=== PATIENT | female | born 1930 | race Caucasian/White ===

== ENCOUNTER 2017-02-28 13:55 | Observation (INO) | payer MEDICARE, BC ==
[2017-02-28] MEDS ORDERED: MECLIZINE 12.5 MG TAB PO STA (14:36)
[2017-02-28] MEDS ORDERED: METOCLOPRAMIDE 5 MG/ML 2 ML VIAL IVP STA (14:36)
--- NOTE | 2017-02-28 14:40 | ED ---
General Adult HPI - General Chief complaint: Dizziness Stated complaint: Dizziness Time Seen by Provider: 02/28/17 14:26 Source: patient, EMS, RN notes reviewed Mode of arrival: EMS Limitations: no limitations - History of Present Illness Initial comments: Patient is a pleasant 86-year-old female presenting to the emergency Department with complaints of dizziness. Onset was when she woke this morning. Patient complains of a spinning type sensation. Symptoms are positional. Symptoms are somewhat severe with upright position and head movement. Symptoms improve with lying down or resting. Patient has had similar symptoms a few times in the past. No chest pain. No weakness or confusion. - Related Data Home Medications Medication Instructions Recorded Confirmed Indapamide [Lozol] 2.5 mg PO DAILY 07/04/14 02/28/17 Pravastatin Sodium [Pravachol] 80 mg PO HS 07/04/14 02/28/17 Verapamil HCl [Verapamil ER] 240 mg PO DAILY 07/04/14 02/28/17 Alendronate Sodium [Fosamax] 70 mg PO AZAR 01/13/16 02/28/17 Meclizine [Antivert] 25 mg PO TID PRN 01/13/16 02/28/17 Escitalopram [Lexapro] 10 mg PO DAILY 02/28/17 02/28/17 Hydrocodone/Acetaminophen [[place] 1 tab PO Q8HR PRN 02/28/17 02/28/17 10-325 Tablet] Megestrol [Megace] 400 mg PO BID 02/28/17 02/28/17 Allergies Allergy/AdvReac Type Severity Reaction Status Date / Time Penicillins Allergy Rash/Hives Verified 02/28/17 15:18 Review of Systems ROS Statement: Those systems with pertinent positive or pertinent negative responses have been documented in the HPI. ROS Other: All systems not noted in ROS Statement are negative. Constitutional: Denies: fever Eyes: Denies: eye pain ENT: Denies: throat pain Respiratory: Denies: cough Cardiovascular: Denies: chest pain Endocrine: Denies: fatigue Gastrointestinal: Denies: abdominal pain Genitourinary: Denies: dysuria Musculoskeletal: Denies: back pain Skin: Denies: rash Neurological: Reports: vertigo. Denies: headache, weakness, numbness, paresthesias, confusion Past Medical History Past Medical History: Hyperlipidemia, Hypertension, Osteoarthritis (OA) History of Any Multi-Drug Resistant Organisms: None Reported Past Surgical History: No Surgical Hx Reported Past Psychological History: Depression Smoking Status: Never smoker Past Alcohol Use History: None Reported Past Drug Use History: None Reported General Exam Limitations: no limitations General appearance: alert, in no apparent distress Head exam: Present: atraumatic, normocephalic Eye exam: Present: normal appearance, PERRL, EOMI ENT exam: Present: normal oropharynx Neck exam: Present: normal inspection. Absent: tenderness Respiratory exam: Present: normal lung sounds bilaterally Cardiovascular Exam: Present: regular rate, normal rhythm GI/Abdominal exam: Present: soft. Absent: tenderness Extremities exam: Present: normal inspection Neurological exam: Present: alert, oriented X3, CN II-XII intact. Absent: motor sensory deficit Expanded Patient oriented to: Present: person, place, time Speech: Present: fluid speech Cranial nerves: EOM's Intact: Normal, Facial Sensation: Normal Sensory exam: Upper Extremity Light Touch: Normal, Lower Extremity Light Touch: Normal Motor strength exam: RUE: 5, LUE: 5, RLE: 5, LLE: 5 Eye Response: (4) open spontaneously Motor Response: (6) obeys commands Verbal Response: (5) oriented Psychiatric exam: Present: normal affect, normal mood Skin exam: Present: normal color Course Vital Signs 02/28/17 02/28/17 02/28/17 14:05 16:37 17:01 Temperature 98.4 F Pulse Rate 81 80 72 Respiratory 18 18 18 Rate Blood Pressure 174/78 147/73 155/79 O2 Sat by Pulse 97 96 97 Oximetry EKG Findings - EKG Comments: EKG Findings:: Normal sinus rhythm 74. Normal intervals. Normal axis. Normal QRS. Normal ST-T. Medical Decision Making - Medical Decision Making Previous computed tomography scan does not have similar report as current report however findings are reported as unchanged since previous scan. Case was discussed in detail with Dr. Hernandez, who will admit for Dr. Borrero. CTA of the brain and neck will be ordered. Patient was reevaluated and updated. Patient still feels dizzy with getting up right - Lab Data Result diagrams: 02/28/17 14:55 02/28/17 14:55 Lab Results 02/28/17 02/28/17 02/28/17 Range/Units 14:55 14:55 14:55 WBC 5.4 (3.8-10.6) k/uL RBC 4.37 (3.80-5.40) m/uL Hgb 13.9 (11.4-16.0) gm/dL Hct 42.7 (34.0-46.0) % MCV 97.5 (80.0-100.0) fL MCH 31.7 (25.0-35.0) pg MCHC 32.5 (31.0-37.0) g/dL RDW 13.6 (11.5-15.5) % Plt Count 339 (150-450) k/uL Neutrophils % 72 % Lymphocytes % 19 % Monocytes % 7 % Eosinophils % 1 % Basophils % 1 % Neutrophils # 3.9 (1.3-7.7) k/uL Lymphocytes # 1.0 (1.0-4.8) k/uL Monocytes # 0.4 (0-1.0) k/uL Eosinophils # 0.0 (0-0.7) k/uL Basophils # 0.0 (0-0.2) k/uL PT (9.0-12.0) sec INR (<1.1) APTT (22.0-30.0) sec Sodium 137 (137-145) mmol/L Potassium 5.2 H (3.5-5.1) mmol/L Chloride 107 (98-107) mmol/L Carbon Dioxide 20 L (22-30) mmol/L Anion Gap 10 mmol/L BUN 17 (7-17) mg/dL Creatinine 0.65 (0.52-1.04) mg/dL Est GFR (MDRD) Af Amer >60 (>60 ml/min/1.73 sqM) Est GFR (MDRD) Non-Af >60 (>60 ml/min/1.73 sqM) Glucose 90 (74-99) mg/dL Calcium 9.4 (8.4-10.2) mg/dL Total Bilirubin 0.9 (0.2-1.3) mg/dL AST 25 (14-36) U/L ALT 16 (9-52) U/L Alkaline Phosphatase 43 (38-126) U/L Total Creatine Kinase 22 L (30-135) U/L CK-MB (CK-2) <0.2 (0.0-2.4) ng/mL CK-MB (CK-2) Rel Index Troponin I <0.012 (0.000-0.034) ng/mL Total Protein 6.9 (6.3-8.2) g/dL Albumin 4.0 (3.5-5.0) g/dL 02/28/17 Range/Units 14:55 WBC (3.8-10.6) k/uL RBC (3.80-5.40) m/uL Hgb (11.4-16.0) gm/dL Hct (34.0-46.0) % MCV (80.0-100.0) fL MCH (25.0-35.0) pg MCHC (31.0-37.0) g/dL RDW (11.5-15.5) % Plt Count (150-450) k/uL Neutrophils % % Lymphocytes % % Monocytes % % Eosinophils % % Basophils % % Neutrophils # (1.3-7.7) k/uL Lymphocytes # (1.0-4.8) k/uL Monocytes # (0-1.0) k/uL Eosinophils # (0-0.7) k/uL Basophils # (0-0.2) k/uL PT 10.1 (9.0-12.0) sec INR 1.0 (<1.1) APTT 23.1 (22.0-30.0) sec Sodium (137-145) mmol/L Potassium (3.5-5.1) mmol/L Chloride (98-107) mmol/L Carbon Dioxide (22-30) mmol/L Anion Gap mmol/L BUN (7-17) mg/dL Creatinine (0.52-1.04) mg/dL Est GFR (MDRD) Af Amer (>60 ml/min/1.73 sqM) Est GFR (MDRD) Non-Af (>60 ml/min/1.73 sqM) Glucose (74-99) mg/dL Calcium (8.4-10.2) mg/dL Total Bilirubin (0.2-1.3) mg/dL AST (14-36) U/L ALT (9-52) U/L Alkaline Phosphatase (38-126) U/L Total Creatine Kinase (30-135) U/L CK-MB (CK-2) (0.0-2.4) ng/mL CK-MB (CK-2) Rel Index Troponin I (0.000-0.034) ng/mL Total Protein (6.3-8.2) g/dL Albumin (3.5-5.0) g/dL - Radiology Data Radiology results: report reviewed (Computed tomography scan of the brain shows degenerative changes. Remote ischemia. Nonspecific white matter changes most typical of remote ischemia. Stable asymmetric prominence right carotid siphon and M1 segment of the right MCA may represent vascular ectasia or aneurysm. Findings unchanged since 2009.) Disposition Clinical Impression: Vertigo Disposition: ADMITTED IP TO THIS HOSP Referrals: Rahul Borrero MD [Primary Care Provider] - 1-2 days Time of Disposition: 18:01
[2017-02-28 15:16] LABS: Basophils % (A) 1 %; CH 32.2; CHCM 33.2; Eosinophils % (A) 1 %; HCT 42.7 % (34.0-46.0); HDW 2.14; HGB 13.9 gm/dL (11.4-16.0); Luc % (Auto) 2; Lymphocytes % (A) 19 %; MCH 31.7 pg (25.0-35.0); MCHC 32.5 g/dL (31.0-37.0); MCV 97.5 fL (80.0-100.0); Mean Platelet Volume 7.5; Monocytes # (A) 0.4 k/uL (0-1.0); Monocytes % (A) 7 %; Neutrophils # (A) 3.9 k/uL (1.3-7.7); Neutrophils % (A) 72 %; RBC 4.37 m/uL (3.80-5.40); RDW 13.6 % (11.5-15.5); WBC 5.4 k/uL (3.8-10.6); WBC (Perox) 5.35
[2017-02-28 15:25] LABS: ALT 16 U/L (9-52); AST 25 U/L (14-36); Alkaline Phosphatase 43 U/L (38-126); Anion Gap 10 mmol/L; Blood Urea Nitrogen 17 mg/dL (7-17); Calcium 9.4 mg/dL (8.4-10.2); Carbon Dioxide 20 mmol/L (22-30); Chloride 107 mmol/L (98-107); Glucose 90 mg/dL (74-99); Non-African American GFR(MDRD) >60 (>60 ml/min/1.73 sqM); Partial Thromboplastin Time 23.1 sec (22.0-30.0); Prothrombin Time 10.1 sec (9.0-12.0); Sodium 137 mmol/L (137-145); Total Bilirubin 0.9 mg/dL (0.2-1.3); Total Protein 6.9 g/dL (6.3-8.2)
[2017-02-28 15:29] LABS: Potassium 5.2 mmol/L (3.5-5.1)
[2017-02-28 15:41] LABS: Creatine Kinase 22 U/L (30-135)
--- NOTE | 2017-02-28 15:50 | CT ---
EXAMINATION TYPE: CT brain wo con DATE OF EXAM: 02/28/2017 COMPARISON: 03/10/2010 HISTORY: Patient complains of vertigo. CT DLP: 993 mGycm Automated exposure control for dose reduction was used. FINDINGS: Ventricular system demonstrates moderate degenerative change with a greater central component. Area o f low attenuation involving the right occipital lobe is seen. Periventricular low attenuation is nons pecific but suggestive of remote microvascular ischemic change Asymmetric prominence of the M1 segment of the right MCA noted. This is stable dating back to 2009 an d may represent vascular ectasia or aneurysm. Small hypodensity within the left basal ganglia suggestive of a remote lacunar infarction. IMPRESSION: 1. Degenerative change with a greater central component appears stable from the previous exam correla te for normal pressure hydrocephalus. 2. Findings suggest remote ischemia involving the right parietal occipital junction 3. Nonspecific white matter changes most typical remote ischemia. 4. Stable asymmetric prominence of the right carotid siphon and M1 segment of the right MCA may repre sent vascular ectasia or aneurysm. Finding unchanged from previous exam of 2009.
[2017-02-28 15:54] LABS: Creatine Kinase MB <0.2 ng/mL (0.0-2.4); Troponin I <0.012 ng/mL (0.000-0.034)
[2017-02-28] MEDS ORDERED: LORazepam 2 MG/ML SYRINGE IV PRN (18:02)
[2017-02-28] MEDS ORDERED: NALOXONE 0.4 MG/ML 1 ML VIAL IV PRN (18:02)
[2017-02-28] MEDS ORDERED: SCOPOLAMINE 1.5MG/72HR PATCH TRANSDERM STA (18:04)
[2017-02-28] MEDS ORDERED: RX INFO: IV CONTRAST WAS GIVEN 1 EACH MISC MISCELLANE PRN (18:05)
[2017-02-28] MEDS ORDERED: MECLIZINE 25 MG TAB PO PRN (18:05)
[2017-02-28] MEDS: SODIUM CHLORIDE 0.9% 1,000 ML IV SCH (18:48)
--- NOTE | 2017-02-28 19:58 | CT ---
EXAMINATION TYPE: CT angio head neck DATE OF EXAM: 02/28/2017 7:46 PM COMPARISON: NONE HISTORY: Patient poor historian. Rule out aneurysm. CT DLP: 254.9 mGycm Automated exposure control for dose reduction was used. TECHNIQUE: Performed with IV Contrast, patient injected with 60 mL of Omnipaque 350. There are 3-D post processed images.. FINDINGS: There is normal branching pattern of the great vessels on the aortic arch. There is mild atheromatous change in the aortic arch. There is bilateral arterial flow in the vertebral arteries. There is arterial flow in the common internal and external carotid arteries bilaterally. I see no luanne dence of carotid stenosis. There is 10-20% narrowing at the origins of both internal carotid arteries . There is minimal calcified plaque. There is arterial flow in the anterior middle and posterior cerebral arteries. There is arterial flow in the vertebrobasilar artery system. The basilar artery appears to fill more from the left side. I see no evidence of aneurysm or neovascularity. There is no mass effect. There is no evidence of steno sis. There is normal contrast opacification of the venous sinuses. IMPRESSION: THERE IS EVIDENCE OF MINIMAL PLAQUE AT THE CAROTID ARTERY BIFURCATIONS AND ONLY 10-20% STENOSIS AT TH E ORIGIN OF BOTH INTERNAL CAROTID ARTERIES. NO EVIDENCE OF HEMODYNAMICALLY SIGNIFICANT STENOSIS. NO EVIDENCE OF ARTERIAL ABNORMALITY WITHIN THE BRAIN.
--- NOTE | 2017-02-28 22:20 | P.CNNES ---
History of Present Illness Consult date: 02/28/17 Reason for Consult: Patient admitted with vertigo and dizziness. History of Present Illness: This patient is a 86-year-old right-handed white female who apparently lives alone in her own home. She states her [id number] helps her and comes in his sister when she needs help at home. Patient was brought into the hospital as she was experiencing symptoms of dizziness and vertigo. Apparently her symptoms were quite severe causing her a great deal of difficulty to get up and walk. The patient has a history of vertigo in the past. She does have Antivert available at home but apparently did not take any Antivert as her symptoms were much more severe than usual. She decided to come to the emergency room at [facility] for further evaluation. She was seen in the ER by Dr. Santacruz who ordered a CT of the brain as well as CTA angiogram. CT of the brain revealed degenerative changes with some degree of ventriculomegaly. Significant frontotemporal atrophy was noted on the CAT scan of the brain. She underwent a CTA angiogram which came back negative for any aneurysm or carotid artery stenosis. The patient is a poor historian. She states that she does take some medications to control her blood pressure. She is unable to give much details as to her other medications. The patient states that the dizziness is positional causing her more symptoms if she were to move her head quickly or turning from side to side. The patient is noted to have a dull affect as well as a mask like facial expression. She is noted to have bilateral hand tremors. These medical symptoms are suggesting underlying our concern is him in this patient. She is not on any specific treatment for Parkinson's disease. The patient states she ambulates at home with the use of a walker. She does admit to having a shuffling gait at home. She denies any recent falls. She is now been admitted and neurology has been consulted for further evaluation and recommendations. Review of Systems Constitutional: Denies chills, Denies fever Eyes: denies blurred vision, denies pain Ears: bilateral: decreased hearing Ears, nose, mouth and throat: Reports vertigo, Denies headache, Denies sore throat Cardiovascular: Denies chest pain, Denies shortness of breath Respiratory: Denies cough Gastrointestinal: Denies abdominal pain, Denies diarrhea, Denies nausea, Denies vomiting Genitourinary: Denies dysuria, Denies hematuria Musculoskeletal: Denies myalgias Integumentary: Denies pruritus, Denies rash Neurological: Reports ataxia, Reports confusion, Reports hearing difficulties, Reports vertigo, Denies numbness, Denies weakness Psychiatric: Denies anxiety, Denies depression Endocrine: Denies fatigue, Denies weight change Past Medical History Past Medical History: Hyperlipidemia, Hypertension, Osteoarthritis (OA) History of Any Multi-Drug Resistant Organisms: None Reported Past Surgical History: No Surgical Hx Reported Past Psychological History: Depression Smoking Status: Never smoker Past Alcohol Use History: None Reported Past Drug Use History: None Reported Medications and Allergies Home Medications Medication Instructions Recorded Confirmed Type Indapamide [Lozol] 2.5 mg PO DAILY 07/04/14 02/28/17 History Pravastatin Sodium [Pravachol] 80 mg PO HS 07/04/14 02/28/17 History Verapamil HCl [Verapamil ER] 240 mg PO DAILY 07/04/14 02/28/17 History Alendronate Sodium [Fosamax] 70 mg PO AZAR 01/13/16 02/28/17 History Meclizine [Antivert] 25 mg PO TID PRN 01/13/16 02/28/17 History Escitalopram [Lexapro] 10 mg PO DAILY 02/28/17 02/28/17 History Hydrocodone/Acetaminophen [[place] 1 tab PO Q8HR PRN 02/28/17 02/28/17 History 10-325 Tablet] Megestrol [Megace] 400 mg PO BID 02/28/17 02/28/17 History Allergies Allergy/AdvReac Type Severity Reaction Status Date / Time Penicillins Allergy Rash/Hives Verified 02/28/17 15:18 Physical Examination - Vital Signs Vital Signs: Vital Signs Temp Pulse Resp BP Pulse Ox 02/28/17 19:27 98.1 F 80 18 169/75 95 02/28/17 18:49 75 18 145/66 95 02/28/17 17:01 72 18 155/79 97 02/28/17 16:37 80 18 147/73 96 02/28/17 14:05 98.4 F 81 18 174/78 97 Intake and Output 02/28/17 02/28/17 02/28/17 06:59 14:59 22:59 Other: Weight 58.967 kg Patient Weight 03/01/17 06:59 Weight 58.967 kg - Constitutional General appearance: average body habitus, cooperative - EENT EENT: PERRL, mucous membranes moist - Respiratory Respiratory: lungs clear, normal breath sounds - Cardiovascular Cardiovascular: regular rate, normal S1, normal S2 Extremities: no peripheral edema bilaterally - Gastrointestinal Gastrointestinal: normoactive bowel sounds - Integumentary Integumentary: normal - Neurologic Cranial nerve examination: PERRL, EOMI, V1/V2/V3 grossly intact, face symmetric , tongue midline, intact gag reflex, intact corneal reflex, normal palatal elevation Speech examination: intact Detailed motor examination: grossly full strength in all extremities Detailed sensory examination: intact Reflex and gait examination: intact Reflexes: 1+: ankle, bicep, knee, tricep - Musculoskeletal Musculoskeletal: no pain - Psychiatric Psychiatric: mood/affect appropriate, cooperative Results - Laboratory Findings CBC and BMP: 02/28/17 14:55 02/28/17 14:55 Abnormal Lab Findings: Abnormal Labs 02/28/17 02/28/17 14:55 14:55 Potassium 5.2 H Carbon Dioxide 20 L Total Creatine Kinase 22 L Assessment and Plan (1) Benign paroxysmal positional vertigo Status: Acute Code(s): H81.10 - BENIGN PAROXYSMAL VERTIGO, UNSPECIFIED EAR (2) Parkinsonism Status: Acute Code(s): G20 - PARKINSON'S DISEASE (3) Ataxic gait Status: Acute Code(s): R26.0 - ATAXIC GAIT (4) Mild cognitive impairment Status: Acute Code(s): G31.84 - MILD COGNITIVE IMPAIRMENT, SO STATED Plan: This patient is a 86-year-old right-handed white female admitted to Hospital with symptoms of positional vertigo. She states her symptoms came on suddenly and were quite severe. She has had vertigo in the past. She has been using Antivert at home when the symptoms are bothersome for her. She does have a prescription for meclizine at home. She apparently had such severe symptoms that she did not bother taking any Antivert at home. She was brought into the emergency room where she was evaluated by Dr. Santacruz. She was subsequently sent for a CT of the brain and CTA angiogram of the head and neck all of which him back negative for any acute findings. Patient was admitted to the hospital for further evaluation. Her clinical history is consistent with benign paroxysmal positional vertigo. We would recommend placing the patient on a scheduled dose of meclizine 12.5 mg twice a day. Dose can be adjusted depending on her response. She is to follow low-sodium diet. Computed tomography scan of the brain does reveal frontotemporal cortical atrophy. She does appear to have clinical findings for mild parkinsonism. We will continue close neurological follow-up for this patient during this admission. Her overall prognosis at this time remains very guarded. Time with Patient: Greater than 30
[2017-02-28] MEDS: HYDROcodone/APAP 10-325MG 1 EACH TAB PO PRN (23:41)
[2017-03-01] MEDS: METOCLOPRAMIDE 5 MG/ML 2 ML VIAL IVP SCH ×5 (00:46→23:44)
[2017-03-01] MEDS: INDAPAMIDE 2.5 MG TAB PO SCH (08:59)
[2017-03-01] MEDS: VERAPAMIL SR 240 MG TABLET.ER PO SCH (08:59)
[2017-03-01] MEDS: MEGESTROL 400 MG/10 ML CUP PO SCH ×2 (08:59→20:47)
[2017-03-01] MEDS: MECLIZINE 12.5 MG TAB PO SCH ×2 (08:59→20:47)
[2017-03-01] MEDS: ESCITALOPRAM 10 MG TAB PO SCH (08:59)
--- NOTE | 2017-03-01 12:01 | P.HPIM ---
History of Present Illness H&P Date: 03/01/17 Chief Complaint: Dizziness This is a 86-year-old female with past medical history noted below significant for known history of benign positional vertigo that usually uses meclizine as needed that presented to the emergency room with worsening dizziness. Patient said that she did not use her meclizine for the past few days. She noted that her dizziness has become worse recently mostly when she get up and try to walk around. Apparently she is very limited with her movements and she only can walk a few steps using a walker. She is mostly in the wheelchair throughout the day. Her got son was at bedside today when I talked to her. He told me that she has visiting nurses and home care coming to her house as she lives by her own. She was evaluated in the emergency room and underwent a computed tomography scan of the brain showing concerning findings about a possible aneurysm involving the right MCA. She was admitted to the hospital for further evaluation and neurology consultation. She underwent CT angiogram of the brain and neck showing no significant findings. She was started on meclizine twice daily scheduled shift. She is feeling relatively better today. No orthostatic blood pressure was checked. Review of Systems Review of system: 14 points review of systems were obtained and were negative except to what were mentioned in the HPI. Past Medical History Past Medical History: Hyperlipidemia, Hypertension, Osteoarthritis (OA) Additional Past Medical History / Comment(s): neuropathy, osteoporosis History of Any Multi-Drug Resistant Organisms: None Reported Past Surgical History: No Surgical Hx Reported Past Psychological History: Depression Smoking Status: Never smoker Past Alcohol Use History: None Reported Past Drug Use History: None Reported - Past Family History Brother(s) Family Medical History: COPD, Myocardial Infarction (CT) Mother Additional Family Medical History / Comment(s): "hardening of the arteries of the brain" Medications and Allergies Home Medications Medication Instructions Recorded Confirmed Type Indapamide [Lozol] 2.5 mg PO DAILY 07/04/14 02/28/17 History Pravastatin Sodium [Pravachol] 80 mg PO HS 07/04/14 02/28/17 History Verapamil HCl [Verapamil ER] 240 mg PO DAILY 07/04/14 02/28/17 History Alendronate Sodium [Fosamax] 70 mg PO AZAR 01/13/16 02/28/17 History Meclizine [Antivert] 25 mg PO TID PRN 01/13/16 02/28/17 History Escitalopram [Lexapro] 10 mg PO DAILY 02/28/17 02/28/17 History Hydrocodone/Acetaminophen [[place] 1 tab PO Q8HR PRN 02/28/17 02/28/17 History 10-325 Tablet] Megestrol [Megace] 400 mg PO BID 02/28/17 02/28/17 History Allergies Allergy/AdvReac Type Severity Reaction Status Date / Time Penicillins Allergy Rash/Hives Verified 02/28/17 15:18 Physical Exam Vitals: Vital Signs Temp Pulse Pulse Resp BP BP Pulse Ox 03/01/17 07:00 98.2 F 66 16 143/71 96 02/28/17 23:00 99.1 F 76 16 134/58 95 02/28/17 19:40 97.2 F L 76 16 177/85 96 02/28/17 19:27 98.1 F 80 18 169/75 95 02/28/17 18:49 75 18 145/66 95 02/28/17 17:01 72 18 155/79 97 02/28/17 16:37 80 18 147/73 96 02/28/17 14:05 98.4 F 81 18 174/78 97 Intake and Output 02/28/17 03/01/17 03/01/17 22:59 06:59 14:59 Other: # Voids 1 3 General: The patient is awake and alert, in no distress Eye: there is normal conjunctiva bilaterally. Neck: The neck is supple, there is no JVD. Cardiovascular: Normal S1-S2, no S3-S4, no murmurs. Respiratory: Lungs clear to auscultation bilaterally Gastrointestinal: Abdomen is soft, nontender Musculoskeletal: There is no pedal edema. Neurological:. Speech is normal. Skin: Skin is warm and dry Results CBC & Chem 7: 02/28/17 14:55 02/28/17 14:55 Labs: Abnormal Lab Results - Last 24 Hours (Table) 02/28/17 02/28/17 Range/Units 14:55 14:55 Potassium 5.2 H (3.5-5.1) mmol/L Carbon Dioxide 20 L (22-30) mmol/L Total Creatine Kinase 22 L (30-135) U/L Thrombosis Risk Factor Assmnt - Choose All That Apply Any of the Below Risk Factors Present?: No Other Risk Factors: Yes Each Risk Factor Represents 3 Points: Age 75 years or older Other congenital or acquired thrombophilia - If yes, enter type in comment: No Thrombosis Risk Factor Assessment Total Risk Factor Score: 3 Thrombosis Risk Factor Assessment Level: Moderate Risk Assessment and Plan Plan: 1. Benign positional vertigo: Started on meclizine twice daily. Seen and evaluated by neurology. I would check orthostatic blood pressure to rule out component of orthostatic hypotension for her dizziness. 2. Parkinsonism with ataxic gait. Patient is being evaluated by neurology. Further evaluation as an outpatient. 3. Essential hypertension: Blood pressure well-controlled 4. Major depressive disorder Today, I reviewed her medication list and lab work results. Continue gentle IV fluid hydration. Appreciate neurology recommendations. EEG ordered. I will consult PT/OT. Repeat lab work in the morning.
[2017-03-01] MEDS: SODIUM CHLORIDE 0.9% 1,000 ML IV SCH ×2 (12:17→17:45)
--- NOTE | 2017-03-01 16:13 | P.PN ---
Subjective This patient is a 86-year-old female who was admitted to Hospital with symptoms of increasing dizziness that was very much positional. She was unable to ambulate at home due to severe dizziness. She was brought into the emergency room and underwent a computed tomography scan of the brain as well as a CTA angiogram. CT of the brain revealed degenerative changes with mild ventriculomegaly. Review the actual CAT scan films also revealed significant frontotemporal atrophy. CTA angiogram came back negative for any evidence of aneurysm. There is also no evidence of carotid artery stenosis. On neurological examination yesterday the patient had findings suggesting benign positional vertigo. She was started on Antivert for this condition. She also had clinical findings for mild parkinsonism. Patient seems to be doing better in terms of her vertigo symptoms. She has been able to move her head more freely without feeling dizzy and vertiginous. We will continue close neurological follow-up with this patient during this admission. Recommended check this patient for orthostatic hypotension. This can also be a manifestation of her parkinsonism. Continue tight control of her blood pressure. Her overall prognosis at this time remains guarded. Objective - Vital Signs Vital signs: Vital Signs Temp 97.6 F 03/01/17 15:00 Pulse 73 03/01/17 15:00 Resp 18 03/01/17 15:00 BP 137/70 03/01/17 15:00 Pulse Ox 97 03/01/17 15:00 Intake & Output 02/28/17 03/01/17 03/01/17 18:59 06:59 18:59 Intake Total 240 Balance 240 Weight 58.967 kg Intake: Oral 240 Other: # Voids 3 1 # Bowel Movements 0 - Exam Physical examination: PHYSICAL EXAMINATION: Patient is resting comfortably in bed. VITAL SIGNS: Blood pressure is [140/73]. Heart rate is [75]. Respiration is [18] . Temperature is [97.7]. HEENT: Head is atraumatic, neck is supple, there were no carotid bruits. CHEST: Lungs are clear to auscultation and percussion. CARDIAC: S1, S2 normal rate and rhythm. There is no murmur. ABDOMEN: Soft and nontender. Bowel sounds are present. EXTREMITIES: There is no pedal edema. Peripheral pulses are present. Neurological examination: Patient's neurological examination is unchanged from yesterday. - Labs CBC & Chem 7: 02/28/17 14:55 02/28/17 14:55 Assessment and Plan (1) Benign paroxysmal positional vertigo Status: Acute Code(s): H81.10 - BENIGN PAROXYSMAL VERTIGO, UNSPECIFIED EAR (2) Parkinsonism Status: Acute Code(s): G20 - PARKINSON'S DISEASE (3) Ataxic gait Status: Acute Code(s): R26.0 - ATAXIC GAIT (4) Mild cognitive impairment Status: Acute Code(s): G31.84 - MILD COGNITIVE IMPAIRMENT, SO STATED Plan: This patient is a 86-year-old female being evaluated for acute onset of dizziness. Her clinical and exam findings yesterday suggested benign paroxysmal positional vertigo. She was started on Antivert on a scheduled dose of 12.5 mg twice a day. Today she has noted some improvement. CT of the brain as well as CT angiogram are reviewed yesterday and are negative. She may continue on Antivert at this time for treatment of her benign positional vertigo. She is advised to follow low sodium diet as well. We will continue to follow her progress closely during this admission. Overall prognosis at this time remains guarded.
[2017-03-01] MEDS: PRAVASTATIN SODIUM 40 MG TAB PO SCH (20:47)
[2017-03-01] MEDS: HEPARIN SODIUM,PORCINE 5,000 UNIT/ML 1 ML VIAL SQ SCH (20:48)
[2017-03-01] MEDS: HYDROcodone/APAP 10-325MG 1 EACH TAB PO PRN (22:32)
[2017-03-02] MEDS: METOCLOPRAMIDE 5 MG/ML 2 ML VIAL IVP SCH ×4 (06:17→23:14)
[2017-03-02] MEDS: MECLIZINE 12.5 MG TAB PO SCH ×2 (08:12→22:52)
[2017-03-02] MEDS: VERAPAMIL SR 240 MG TABLET.ER PO SCH (08:13)
[2017-03-02] MEDS: MEGESTROL 400 MG/10 ML CUP PO SCH ×2 (08:13→22:53)
[2017-03-02] MEDS: SODIUM CHLORIDE 0.9% 1,000 ML IV SCH ×2 (08:13→18:28)
[2017-03-02] MEDS: ESCITALOPRAM 10 MG TAB PO SCH (08:13)
[2017-03-02] MEDS: HEPARIN SODIUM,PORCINE 5,000 UNIT/ML 1 ML VIAL SQ SCH ×2 (08:13→22:52)
[2017-03-02] MEDS: INDAPAMIDE 2.5 MG TAB PO SCH (08:13)
[2017-03-02 08:34] LABS: Anion Gap 9 mmol/L; Blood Urea Nitrogen 15 mg/dL (7-17); Calcium 9.5 mg/dL (8.4-10.2); Carbon Dioxide 23 mmol/L (22-30); Chloride 108 mmol/L (98-107); Glucose 89 mg/dL (74-99); Non-African American GFR(MDRD) >60 (>60 ml/min/1.73 sqM); Potassium 4.2 mmol/L (3.5-5.1); Sodium 140 mmol/L (137-145)
[2017-03-02 08:35] LABS: Basophils % (A) 1 %; CH 32.1; CHCM 33.3; Eosinophils # (A) 0.1 k/uL (0-0.7); Eosinophils % (A) 1 %; HCT 42.4 % (34.0-46.0); HDW 2.26; HGB 14.1 gm/dL (11.4-16.0); Luc # (Auto) 0.09; Luc % (Auto) 2; Lymphocytes # (A) 1.6 k/uL (1.0-4.8); Lymphocytes % (A) 31 %; MCH 32.2 pg (25.0-35.0); MCHC 33.3 g/dL (31.0-37.0); MCV 96.5 fL (80.0-100.0); Mean Platelet Volume 7.2; Monocytes # (A) 0.3 k/uL (0-1.0); Monocytes % (A) 6 %; Neutrophils # (A) 3.1 k/uL (1.3-7.7); Neutrophils % (A) 60 %; RDW 13.2 % (11.5-15.5); WBC 5.2 k/uL (3.8-10.6); WBC (Perox) 5.03
--- NOTE | 2017-03-02 14:23 | P.PN ---
Subjective Patient is doing well today. Her dizziness have improved significantly. Objective - Vital Signs Vital signs: Vital Signs Temp 97.7 F 03/02/17 07:00 Pulse 87 03/02/17 07:00 Resp 14 03/02/17 07:00 BP 156/74 03/02/17 07:00 Pulse Ox 97 03/02/17 07:00 Intake & Output 03/01/17 03/02/17 03/02/17 18:59 06:59 18:59 Intake Total 240 Balance 240 Intake: Oral 240 Other: # Voids 1 3 # Bowel Movements 0 - Exam General: The patient is awake and alert, in no distress Eye: there is normal conjunctiva bilaterally. Neck: The neck is supple, there is no JVD. Cardiovascular: Normal S1-S2, no S3-S4, no murmurs. Respiratory: Lungs clear to auscultation bilaterally Gastrointestinal: Abdomen is soft, nontender Musculoskeletal: There is no pedal edema. Neurological:. Speech is normal. Skin: Skin is warm and dry - Labs CBC & Chem 7: 03/02/17 07:54 03/02/17 07:54 Labs: Abnormal Lab Results - Last 24 Hours (Table) 03/02/17 Range/Units 07:54 Chloride 108 H (98-107) mmol/L Assessment and Plan Plan: 1. Benign positional vertigo: Continue meclizine twice daily. Seen and evaluated by neurology. Orthostatic blood pressure checked and negative. Symptoms are improving. 2. Parkinsonism with ataxic gait. Patient is being evaluated by neurology. Further evaluation as an outpatient. 3. Essential hypertension: Blood pressure well-controlled 4. Major depressive disorder Patient is cleared for discharge home today. She does not have a ride today secondary to holiday weekend as her daughter lives in [place] and she is unable to get to her house. Plan for discharge tomorrow.
--- NOTE | 2017-03-02 19:06 | P.PN ---
Subjective This patient is a 86-year-old female who was admitted to Hospital with symptoms of increasing dizziness that was very much positional. She was unable to ambulate at home due to severe dizziness. She was brought into the emergency room and underwent a computed tomography scan of the brain as well as a CTA angiogram. CT of the brain revealed degenerative changes with mild ventriculomegaly. Review the actual CAT scan films also revealed significant frontotemporal atrophy. CTA angiogram came back negative for any evidence of aneurysm. There is also no evidence of carotid artery stenosis. On neurological examination yesterday the patient had findings suggesting benign positional vertigo. She was started on Antivert for this condition. Patient is doing much better today and is having less symptoms of dizziness or vertigo. Recommended continue her on current dose of Antivert. She also had clinical findings for mild parkinsonism. Patient seems to be doing better in terms of her vertigo symptoms. She has been able to move her head more freely without feeling dizzy and vertiginous. We will continue close neurological follow-up with this patient during this admission. Recommended check this patient for orthostatic hypotension. This can also be a manifestation of her parkinsonism. Continue tight control of her blood pressure. Her overall prognosis at this time remains guarded. Objective - Vital Signs Vital signs: Vital Signs Temp 96.9 F L 03/02/17 14:38 Pulse 78 03/02/17 14:38 Resp 16 03/02/17 14:38 BP 119/63 03/02/17 14:38 Pulse Ox 98 03/02/17 14:38 Intake & Output 03/02/17 03/02/17 03/03/17 06:59 18:59 06:59 Other: # Voids 3 3 - Exam Physical examination: PHYSICAL EXAMINATION: Patient is resting comfortably in bed. VITAL SIGNS: Blood pressure is [119/63]. Heart rate is [78]. Respiration is [16] . Temperature is [97.0]. HEENT: Head is atraumatic, neck is supple, there were no carotid bruits. CHEST: Lungs are clear to auscultation and percussion. CARDIAC: S1, S2 normal rate and rhythm. There is no murmur. ABDOMEN: Soft and nontender. Bowel sounds are present. EXTREMITIES: There is no pedal edema. Peripheral pulses are present. Neurological examination: Patient's neurological examination is unchanged from yesterday. - Labs CBC & Chem 7: 03/02/17 07:54 03/02/17 07:54 Labs: Abnormal Lab Results - Last 24 Hours (Table) 03/02/17 Range/Units 07:54 Chloride 108 H (98-107) mmol/L Assessment and Plan (1) Benign paroxysmal positional vertigo Status: Acute Code(s): H81.10 - BENIGN PAROXYSMAL VERTIGO, UNSPECIFIED EAR (2) Parkinsonism Status: Acute Code(s): G20 - PARKINSON'S DISEASE (3) Ataxic gait Status: Acute Code(s): R26.0 - ATAXIC GAIT (4) Mild cognitive impairment Status: Acute Code(s): G31.84 - MILD COGNITIVE IMPAIRMENT, SO STATED Plan: This patient is a 86-year-old female who was initially admitted to Hospital for evaluation of dizziness and vertigo. On her initial presentation to the emergency room she underwent a computed tomography scan of the brain as well as a CTA angiogram. Results are as noted above. CAT scan of the brain did reveal frontotemporal atrophy. She also has clinical findings of mild parkinsonism. Since admission she has responded very well to her current dose of Antivert twice a day. Recommended continue the same at the time of discharge. Apparently she has no ride available today and will most likely be able to be discharged home tomorrow. She may follow-up in the outpatient neurology clinic in 3-4 weeks for further reevaluation of the vertigo as well as to address the parkinsonism features that she is demonstrating as well. Her overall prognosis at this time remains guarded.
[2017-03-02] MEDS: PRAVASTATIN SODIUM 40 MG TAB PO SCH (22:52)
[2017-03-02] MEDS: CARBIDOPA-LEVODOPA 25-100 MG 1 EACH TAB PO SCH (22:52)
[2017-03-02] MEDS ORDERED: NON-FORMULARY DRUG (Alendronate Sodium [Fosamax] 70 MG) PO SCH (23:05)
[2017-03-03] MEDS: METOCLOPRAMIDE 5 MG/ML 2 ML VIAL IVP SCH ×4 (06:21→23:54)
[2017-03-03 07:44] LABS: Basophils # (A) 0.1 k/uL (0-0.2); Basophils % (A) 1 %; CH 31.3; Eosinophils # (A) 0.1 k/uL (0-0.7); Eosinophils % (A) 2 %; HCT 44.8 % (34.0-46.0); HDW 2.13; HGB 14.6 gm/dL (11.4-16.0); Luc # (Auto) 0.13; Luc % (Auto) 2; Lymphocytes # (A) 1.6 k/uL (1.0-4.8); Lymphocytes % (A) 30 %; MCHC 32.6 g/dL (31.0-37.0); MCV 98.1 fL (80.0-100.0); Mean Platelet Volume 7.2; Monocytes # (A) 0.4 k/uL (0-1.0); Monocytes % (A) 7 %; Neutrophils # (A) 3.2 k/uL (1.3-7.7); Neutrophils % (A) 58 %; RBC 4.57 m/uL (3.80-5.40); RDW 13.4 % (11.5-15.5); WBC 5.4 k/uL (3.8-10.6); WBC (Perox) 5.15
[2017-03-03 08:01] LABS: Anion Gap 8 mmol/L; Blood Urea Nitrogen 15 mg/dL (7-17); Calcium 9.5 mg/dL (8.4-10.2); Carbon Dioxide 23 mmol/L (22-30); Chloride 109 mmol/L (98-107); Glucose 93 mg/dL (74-99); Non-African American GFR(MDRD) >60 (>60 ml/min/1.73 sqM); Potassium 4.3 mmol/L (3.5-5.1); Sodium 140 mmol/L (137-145)
[2017-03-03] MEDS: MEGESTROL 400 MG/10 ML CUP PO SCH ×2 (08:47→20:07)
[2017-03-03] MEDS: HEPARIN SODIUM,PORCINE 5,000 UNIT/ML 1 ML VIAL SQ SCH ×2 (08:47→20:07)
[2017-03-03] MEDS: INDAPAMIDE 2.5 MG TAB PO SCH (08:47)
[2017-03-03] MEDS: ESCITALOPRAM 10 MG TAB PO SCH (08:48)
[2017-03-03] MEDS: VERAPAMIL SR 240 MG TABLET.ER PO SCH (08:48)
[2017-03-03] MEDS: MECLIZINE 12.5 MG TAB PO SCH ×2 (08:48→20:07)
[2017-03-03] MEDS: CARBIDOPA-LEVODOPA 25-100 MG 1 EACH TAB PO SCH ×2 (08:48→20:07)
--- NOTE | 2017-03-03 13:19 | P.PN ---
Subjective This patient is a 86-year-old female who was admitted to Hospital with symptoms of increasing dizziness that was very much positional. She was unable to ambulate at home due to severe dizziness. She was brought into the emergency room and underwent a computed tomography scan of the brain as well as a CTA angiogram. CT of the brain revealed degenerative changes with mild ventriculomegaly. Review the actual CAT scan films also revealed significant frontotemporal atrophy. CTA angiogram came back negative for any evidence of aneurysm. There is also no evidence of carotid artery stenosis. On neurological examination yesterday the patient had findings suggesting benign positional vertigo. She was started on Antivert for this condition. Patient is doing much better today and is having less symptoms of dizziness or vertigo. Recommended continue her on current dose of Antivert. She also had clinical findings for mild parkinsonism. Patient seems to be doing better in terms of her vertigo symptoms. She has been able to move her head more freely without feeling dizzy and vertiginous. According to the daughter who is at the bedside yesterday she feels the patient is unable to return home without some assistance. Currently she is living in her own home and she is considering whether to have her placed into a extended care facility. We have suggested that she talk to the elementary school social worker upon discharge planning. We did start the patient on low dose Sinemet yesterday to see if she may respond as she does have features of Parkinson's disease. According to the daughter she is noted her to have more shuffling gait and increase in tremors. As mentioned her primary diagnosis was of vertigo but likely she is suffering with some features of Parkinson's that is making her more weak and unable to return home without some assistance. We will await further recommendations from social work regarding discharge planning. We will continue close neurological follow-up with this patient during this admission. Recommended check this patient for orthostatic hypotension. This can also be a manifestation of her parkinsonism. Continue tight control of her blood pressure. Her overall prognosis at this time remains guarded. Objective - Vital Signs Vital signs: Vital Signs Temp 97.5 F L 03/03/17 07:00 Pulse 89 03/03/17 07:00 Resp 19 03/03/17 07:00 BP 133/77 03/03/17 07:00 Pulse Ox 96 03/03/17 08:05 Intake & Output 03/02/17 03/03/17 03/03/17 18:59 06:59 18:59 Intake Total 400 Balance 400 Intake: Oral 400 Other: Voiding Method Bedpan Incontinent # Voids 3 3 # Bowel Movements 0 - Exam Physical examination: PHYSICAL EXAMINATION: Patient is resting comfortably in bed. Patient appears to have masklike facial expression. VITAL SIGNS: Blood pressure is [133/77]. Heart rate is [89]. Respiration is [19] . Temperature is [97.5]. HEENT: Head is atraumatic, neck is supple, there were no carotid bruits. CHEST: Lungs are clear to auscultation and percussion. CARDIAC: S1, S2 normal rate and rhythm. There is no murmur. ABDOMEN: Soft and nontender. Bowel sounds are present. EXTREMITIES: There is no pedal edema. Peripheral pulses are present. Neurological examination: Patient's neurological examination is unchanged from yesterday. Patient does have mild hand tremors as well as cogwheel rigidity in the upper extremities only. - Labs CBC & Chem 7: 03/03/17 07:25 03/03/17 07:25 Labs: Abnormal Lab Results - Last 24 Hours (Table) 03/03/17 Range/Units 07:25 Chloride 109 H (98-107) mmol/L Assessment and Plan (1) Benign paroxysmal positional vertigo Status: Acute Code(s): H81.10 - BENIGN PAROXYSMAL VERTIGO, UNSPECIFIED EAR (2) Parkinsonism Status: Acute Code(s): G20 - PARKINSON'S DISEASE (3) Ataxic gait Status: Acute Code(s): R26.0 - ATAXIC GAIT (4) Mild cognitive impairment Status: Acute Code(s): G31.84 - MILD COGNITIVE IMPAIRMENT, SO STATED Plan: This patient is a 86-year-old female who was initially admitted to Hospital for evaluation of dizziness and vertigo. On her initial presentation to the emergency room she underwent a computed tomography scan of the brain as well as a CTA angiogram. Results are as noted above. CAT scan of the brain did reveal frontotemporal atrophy. She also has clinical findings of mild parkinsonism. Since admission she has responded very well to her current dose of Antivert twice a day. Recommended continue the same at the time of discharge. Apparently she has no ride available today and will most likely be able to be discharged home tomorrow. Her case was discussed last night with her daughter. Apparently the daughter is concerned whether the patient can return home without some assistance. We did recommend for her to contact social work for possible discharge planning to see if she may require further assistance or ECF placement. Patient has been started on low-dose Sinemet and we will monitor her response to the medication as she does have mild features of Parkinson's disease. She may follow-up in the outpatient neurology clinic in 3-4 weeks for further reevaluation of the vertigo as well as to address the parkinsonism features that she is demonstrating as well. She may require further titration of Sinemet depending on her response at that time. Her overall prognosis at this time remains guarded. We will continue to follow the patient closely during this admission. Overall prognosis as noted remains guarded.
--- NOTE | 2017-03-03 14:38 | P.DS ---
Providers Date of admission: 02/28/17 18:02 Expected date of discharge: 03/03/17 Attending physician: Liz Cheatham Consults: 02/28/17 18:03 Consult Physician Urgent Consulting Provider: Bridger Martinez Consult Reason/Comments: Intractable vertigo Do you want consulting provider notified?: Yes Primary care physician: Rahul [facility] Course: 1. Benign positional vertigo: Continue meclizine twice daily. Seen and evaluated by neurology. Orthostatic blood pressure checked and negative. Symptoms are improving. Continue meclizine twice a day 2. Parkinsonism with ataxic gait. Patient is being evaluated by neurology. Further evaluation as an outpatient. 3. Essential hypertension: Blood pressure well-controlled 4. Major depressive disorder Plan - Discharge Summary New Discharge Prescriptions: Carbidopa-Levodopa 25-100 mg [Sinemet 25-100 mg] 1 each PO BID #60 tab Meclizine [Antivert] 25 mg PO BID #60 Discharge Medication List Indapamide [Lozol] 2.5 mg PO DAILY 07/04/14 [History] Pravastatin Sodium [Pravachol] 80 mg PO HS 07/04/14 [History] Verapamil HCl [Verapamil ER] 240 mg PO DAILY 07/04/14 [History] Alendronate Sodium [Fosamax] 70 mg PO AZAR 01/13/16 [History] Escitalopram [Lexapro] 10 mg PO DAILY 02/28/17 [History] Hydrocodone/Acetaminophen [[place] 10-325 Tablet] 1 tab PO Q8HR PRN 02/28/17 [ History] Megestrol [Megace] 400 mg PO BID 02/28/17 [History] Carbidopa-Levodopa 25-100 mg [Sinemet 25-100 mg] 1 each PO BID #60 tab 03/03/17 [Rx] Meclizine [Antivert] 25 mg PO BID #60 03/03/17 [Rx] Follow up Appointment(s)/Referral(s): Rahul Borrero MD [Primary Care Provider] - 1-2 days Discharge Disposition: HOME SELF-CARE
[2017-03-03] MEDS: SODIUM CHLORIDE 0.9% 1,000 ML IV SCH (18:30)
[2017-03-03] MEDS: PRAVASTATIN SODIUM 40 MG TAB PO SCH (20:07)
[2017-03-03] MEDS: DOCUSATE 100 MG CAP PO SCH (20:07)
[2017-03-04] MEDS: METOCLOPRAMIDE 5 MG/ML 2 ML VIAL IVP SCH ×2 (05:57→13:17)
[2017-03-04 09:08] LABS: Anion Gap 9 mmol/L; Blood Urea Nitrogen 22 mg/dL (7-17); Calcium 9.4 mg/dL (8.4-10.2); Carbon Dioxide 21 mmol/L (22-30); Chloride 109 mmol/L (98-107); Glucose 95 mg/dL (74-99); Non-African American GFR(MDRD) >60 (>60 ml/min/1.73 sqM); Potassium 4.5 mmol/L (3.5-5.1); Sodium 139 mmol/L (137-145)
[2017-03-04 09:33] LABS: Basophils % (A) 0 %; CH 31.9; CHCM 32.4; Eosinophils # (A) 0.1 k/uL (0-0.7); Eosinophils % (A) 2 %; HCT 44.5 % (34.0-46.0); HDW 2.12; HGB 14.2 gm/dL (11.4-16.0); Luc # (Auto) 0.13; Luc % (Auto) 2; Lymphocytes # (A) 1.7 k/uL (1.0-4.8); Lymphocytes % (A) 26 %; MCH 31.5 pg (25.0-35.0); MCHC 31.9 g/dL (31.0-37.0); MCV 98.6 fL (80.0-100.0); Mean Platelet Volume 7.5; Monocytes # (A) 0.4 k/uL (0-1.0); Monocytes % (A) 7 %; Neutrophils # (A) 4.1 k/uL (1.3-7.7); Neutrophils % (A) 63 %; RBC 4.51 m/uL (3.80-5.40); RDW 13.6 % (11.5-15.5); WBC 6.5 k/uL (3.8-10.6); WBC (Perox) 6.33
[2017-03-04] MEDS: MEGESTROL 400 MG/10 ML CUP PO SCH ×2 (09:35→21:04)
[2017-03-04] MEDS: MECLIZINE 12.5 MG TAB PO SCH ×2 (09:36→21:04)
[2017-03-04] MEDS: ESCITALOPRAM 10 MG TAB PO SCH (09:36)
[2017-03-04] MEDS: CARBIDOPA-LEVODOPA 25-100 MG 1 EACH TAB PO SCH ×2 (09:36→21:04)
[2017-03-04] MEDS: VERAPAMIL SR 240 MG TABLET.ER PO SCH (09:36)
[2017-03-04] MEDS: HEPARIN SODIUM,PORCINE 5,000 UNIT/ML 1 ML VIAL SQ SCH ×2 (09:36→21:04)
[2017-03-04] MEDS: DOCUSATE 100 MG CAP PO SCH ×2 (09:37→21:04)
[2017-03-04] MEDS: INDAPAMIDE 2.5 MG TAB PO SCH (09:37)
--- NOTE | 2017-03-04 10:27 | EEG ---
DATE OF SERVICE: 03/03/2017 INDICATIONS FOR EXAMINATION: This patient is an 86-year-old female admitted with intractable vertigo. The patient also with symptoms of parkinsonism. AGE: 86Y EEG FINDINGS: A routine 21-channel, awake digital EEG recording was accomplished utilizing the 10-20 international system with bipolar and referential montages. The background activity in the most alert resting state consists of a low to medium amplitude, fairly well-developed and well-sustained 6-7 Hz activity over the posterior head regions. This posterior rhythm attenuates to eye opening. There is a small amount of low amplitude 18-20 Hz beta activity seen maximally over the anterior head regions. Muscle and movement artifact was observed on a few occasions during the tracing. Hyperventilation was not performed. Photic stimulation at flash frequencies of 2-30 Hz produced a minimal occipital driving response. No epileptiform discharges were seen. IMPRESSION: This EEG is mildly abnormal in a diffuse fashion due to slowing of the EEG background. The EEG failed to reveal any focal, lateralized or epileptiform abnormalities. Clinical correlation is recommended.
[2017-03-04] MEDS ORDERED: METOCLOPRAMIDE 5 MG/ML 2 ML VIAL IVP PRN (13:21)
--- NOTE | 2017-03-04 13:33 | P.PN ---
Subjective Patient is doing well today. Objective - Vital Signs Vital signs: Vital Signs Temp 99.0 F 03/04/17 07:00 Pulse 78 03/04/17 07:00 Resp 20 03/04/17 07:00 BP 148/77 03/04/17 07:00 Pulse Ox 96 03/04/17 07:00 Intake & Output 03/03/17 03/04/17 03/04/17 18:59 06:59 18:59 Intake Total 340 400 240 Balance 340 400 240 Weight 58.967 kg Intake: Intake, IV Titration 100 Amount Sodium Chloride 0.9% 1, 100 000 ml @ 20 mls/hr IV . Q24H [facility] Rx#:[id number] Oral 240 400 240 Other: Voiding Method Bedpan Bedpan Incontinent Incontinent # Voids 3 1 1 # Bowel Movements 0 0 0 - Exam General: The patient is awake and alert, in no distress Eye: there is normal conjunctiva bilaterally. Neck: The neck is supple, there is no JVD. Cardiovascular: Normal S1-S2, no S3-S4, no murmurs. Respiratory: Lungs clear to auscultation bilaterally Gastrointestinal: Abdomen is soft, nontender Musculoskeletal: There is no pedal edema. Neurological:. Speech is normal. Skin: Skin is warm and dry - Labs CBC & Chem 7: 03/04/17 08:24 03/04/17 08:24 Labs: Abnormal Lab Results - Last 24 Hours (Table) 03/04/17 Range/Units 08:24 Chloride 109 H (98-107) mmol/L Carbon Dioxide 21 L (22-30) mmol/L BUN 22 H (7-17) mg/dL Assessment and Plan Plan: 1. Benign positional vertigo: Continue meclizine twice daily. Seen and evaluated by neurology. Orthostatic blood pressure checked and negative. Symptoms are improving. 2. Parkinsonism with ataxic gait. Patient is being evaluated by neurology. Further evaluation as an outpatient. 3. Essential hypertension: Blood pressure well-controlled 4. Major depressive disorder Patient is cleared for discharge home. She does require 2 person assist to ambulate. She is unable to return home. She is under observation and therefore does not qualify for custodial home. Plan for her to be discharged with her daughter who lives in [place]. Her daughter is not ready for her today. Discharge will be postponed until tomorrow. Patient is medically clear for discharge
--- NOTE | 2017-03-04 19:35 | P.PN ---
Subjective Patient is a 86 year old female who was initially admitted with intractable vertigo. She has responded well to Antivert for treatment of this condition. In the course of her treatment of the vertigo the patient was also found to have evidence of Parkinson's disease. She has been started on low-dose Sinemet for treatment to see if she may respond. Patient does seem to be doing better on the current dose of Sinemet. Patient is being evaluated for possible discharge to her daughter's home for subacute rehabilitation. Her daughter is living in [place] at this time. Once she is more stable she may be returning back to the area for further ongoing treatment. At this time we would recommend to continue on current dose of Sinemet. This may be slowly titrated depending on her response long-term. Patient does not qualify for penitentiary home placement at this time. The plan is to consider discharge to her daughter who lives in [place] for at least some period of time until she is more stable and may return for further ongoing evaluation and treatment. Overall the patient's vertigo has completely resolved. She is to continue on current dose of meclizine twice a day. We will continue to monitor her progress closely during this admission. Overall prognosis at this time remains guarded. Objective - Vital Signs Vital signs: Vital Signs Temp 98.8 F 03/04/17 15:00 Pulse 78 03/04/17 15:00 Resp 20 03/04/17 15:00 BP 119/69 03/04/17 15:00 Pulse Ox 96 03/04/17 15:00 Intake & Output 03/03/17 03/04/17 03/04/17 18:59 06:59 18:59 Intake Total 340 400 780 Balance 340 400 780 Weight 58.967 kg Intake: Intake, IV Titration 100 300 Amount Sodium Chloride 0.9% 1, 100 300 000 ml @ 20 mls/hr IV . Q24H [facility] Rx#:[id number] Oral 240 400 480 Other: Voiding Method Bedpan Bedpan Bedside Commode Incontinent Incontinent Bedpan Incontinent # Voids 3 1 2 # Bowel Movements 0 0 0 - Exam Physical examination: PHYSICAL EXAMINATION: Patient is resting comfortably in bed. Patient appears to be more alert and attentive. She does not have much of a masslike facial expression today. She has no evidence of rest tremor. VITAL SIGNS: Blood pressure is [120/69]. Heart rate is [78]. Respiration is [20] . Temperature is [98.8]. HEENT: Head is atraumatic, neck is supple, there were no carotid bruits. CHEST: Lungs are clear to auscultation and percussion. CARDIAC: S1, S2 normal rate and rhythm. There is no murmur. ABDOMEN: Soft and nontender. Bowel sounds are present. EXTREMITIES: There is no pedal edema. Peripheral pulses are present. Neurological examination: Patient's neurological examination is unchanged from yesterday. Patient does have mild hand tremors as well as cogwheel rigidity in the upper extremities only. - Labs CBC & Chem 7: 03/04/17 08:24 03/04/17 08:24 Labs: Abnormal Lab Results - Last 24 Hours (Table) 03/04/17 Range/Units 08:24 Chloride 109 H (98-107) mmol/L Carbon Dioxide 21 L (22-30) mmol/L BUN 22 H (7-17) mg/dL Assessment and Plan (1) Benign paroxysmal positional vertigo Status: Acute Code(s): H81.10 - BENIGN PAROXYSMAL VERTIGO, UNSPECIFIED EAR (2) Parkinsonism Status: Acute Code(s): G20 - PARKINSON'S DISEASE (3) Ataxic gait Status: Acute Code(s): R26.0 - ATAXIC GAIT (4) Mild cognitive impairment Status: Acute Code(s): G31.84 - MILD COGNITIVE IMPAIRMENT, SO STATED Plan: This patient is a 86-year-old right-handed white female who was initially evaluated for intractable vertigo. She was also subsequent only found to have evidence of Parkinson's disease. She has been started on low-dose Sinemet. Her discharge plans is to discharge her home under the care of her daughter lives in [place]. When she is stabilized she may be returning back where she may be reevaluated and adjusted in terms of her Sinemet dosing for the Parkinson 's condition. Patient does not qualify for penitentiary home placement at this time. We will need to have her continue on Sinemet and adjust her dose gradually over the next month or so if she is able to return. She may follow- up in the outpatient neurology clinic when she gets back for further adjustment of her medication as needed. Overall prognosis at this time remains guarded. We will await further recommendations from social work in terms of discharge planning.
[2017-03-04] MEDS: SODIUM CHLORIDE 0.9% 1,000 ML IV SCH (19:46)
[2017-03-04] MEDS: HYDROcodone/APAP 10-325MG 1 EACH TAB PO PRN (20:13)
[2017-03-04] MEDS: PRAVASTATIN SODIUM 40 MG TAB PO SCH (21:04)
[2017-03-05] MEDS: MEGESTROL 400 MG/10 ML CUP PO SCH (08:52)
[2017-03-05] MEDS: ESCITALOPRAM 10 MG TAB PO SCH (08:52)
[2017-03-05] MEDS: CARBIDOPA-LEVODOPA 25-100 MG 1 EACH TAB PO SCH (08:52)
[2017-03-05] MEDS: HEPARIN SODIUM,PORCINE 5,000 UNIT/ML 1 ML VIAL SQ SCH (08:52)
[2017-03-05] MEDS: VERAPAMIL SR 240 MG TABLET.ER PO SCH (08:52)
[2017-03-05] MEDS: MECLIZINE 12.5 MG TAB PO SCH (08:52)
[2017-03-05] MEDS: DOCUSATE 100 MG CAP PO SCH (08:53)
[2017-03-05] MEDS: INDAPAMIDE 2.5 MG TAB PO SCH (08:53)
[2017-03-05 09:37] LABS: Basophils % (A) 1 %; CHCM 32.3; Eosinophils # (A) 0.1 k/uL (0-0.7); Eosinophils % (A) 2 %; HCT 45.6 % (34.0-46.0); HGB 14.3 gm/dL (11.4-16.0); Luc # (Auto) 0.13; Luc % (Auto) 2; Lymphocytes # (A) 1.7 k/uL (1.0-4.8); Lymphocytes % (A) 24 %; MCH 31.3 pg (25.0-35.0); MCHC 31.3 g/dL (31.0-37.0); MCV 99.8 fL (80.0-100.0); Mean Platelet Volume 7.6; Monocytes # (A) 0.4 k/uL (0-1.0); Monocytes % (A) 7 %; Neutrophils # (A) 4.4 k/uL (1.3-7.7); Neutrophils % (A) 65 %; RBC 4.57 m/uL (3.80-5.40); RDW 13.8 % (11.5-15.5); WBC 6.8 k/uL (3.8-10.6)
[2017-03-05 09:40] LABS: Anion Gap 11 mmol/L; Blood Urea Nitrogen 26 mg/dL (7-17); Calcium 9.8 mg/dL (8.4-10.2); Carbon Dioxide 22 mmol/L (22-30); Chloride 105 mmol/L (98-107); Glucose 90 mg/dL (74-99); Non-African American GFR(MDRD) >60 (>60 ml/min/1.73 sqM); Potassium 4.6 mmol/L (3.5-5.1); Sodium 138 mmol/L (137-145)
--- NOTE | 2017-03-05 11:25 | P.PN ---
Subjective No events overnight Objective - Vital Signs Vital signs: Vital Signs Temp 97.6 F 03/05/17 07:00 Pulse 76 03/05/17 07:00 Resp 16 03/05/17 07:00 BP 140/73 03/05/17 07:00 Pulse Ox 97 03/05/17 07:00 Intake & Output 03/04/17 03/05/17 03/05/17 18:59 06:59 18:59 Intake Total 780 200 Balance 780 200 Weight 58.967 kg Intake: Intake, IV Titration 300 Amount Sodium Chloride 0.9% 1, 300 000 ml @ 20 mls/hr IV . Q24H VERO Rx#:[id number] Oral 480 200 Other: Voiding Method Bedside Commode Bedside Commode Bedpan Bedpan Incontinent Incontinent # Voids 2 2 # Bowel Movements 0 0 - Labs CBC & Chem 7: 03/05/17 08:41 03/05/17 08:41 Labs: Abnormal Lab Results - Last 24 Hours (Table) 03/05/17 Range/Units 08:41 BUN 26 H (7-17) mg/dL Assessment and Plan Plan: 1. Benign positional vertigo: Continue meclizine twice daily. Seen and evaluated by neurology. Orthostatic blood pressure checked and negative. Symptoms are improving. 2. Parkinsonism with ataxic gait. Patient is being evaluated by neurology. Further evaluation as an outpatient. 3. Essential hypertension: Blood pressure well-controlled 4. Major depressive disorder Patient will be discharged today. She was medically cleared for discharge 2 days ago but was unable to get out of the hospital until arrangement made by her daughter in [place]. Please refer to my discharge summary in the electronic chart for further details about this hospitalization.
[2017-03-05] MEDS ORDERED: LACTULOSE 20 GM/30 ML CUP PO ONE (13:37)
[2017-03-05 15:42] VITALS: BP 136/75; PULSE 89; RESP 20; TEMP 97.4
--- NOTE | 2017-03-05 18:52 | P.PN ---
Subjective Patient is a 86 year old female who was initially admitted with intractable vertigo. She has responded well to Antivert for treatment of this condition. In the course of her treatment of the vertigo the patient was also found to have evidence of Parkinson's disease. She has been started on low-dose Sinemet for treatment to see if she may respond. Patient does seem to be doing better on the current dose of Sinemet. Patient is being evaluated for possible discharge to her daughter's home for subacute rehabilitation. Her daughter is living in [place] at this time. Once she is more stable she may be returning back to the area for further ongoing treatment. At this time we would recommend to continue on current dose of Sinemet. This may be slowly titrated depending on her response long-term. Patient does not qualify for detention home placement at this time. The plan is to consider discharge to her daughter who lives in [place] for at least some period of time until she is more stable and may return for further ongoing evaluation and treatment. Overall the patient's vertigo has completely resolved. She is to continue on current dose of meclizine twice a day. Patient has been cleared for discharge home today. She is waiting for her daughter who is making arrangements to take her to [place] where she will undergo some rehabilitation. Once she returns back home she may schedule an outpatient follow-up for further adjustment of her Sinemet for treatment of her Parkinson's disease. We will continue to monitor her progress closely during this admission. Overall prognosis at this time remains guarded. Objective - Vital Signs Vital signs: Vital Signs Temp 97.4 F L 03/05/17 15:00 Pulse 89 03/05/17 15:00 Resp 20 03/05/17 16:00 BP 136/75 03/05/17 15:00 Pulse Ox 96 03/05/17 15:00 Intake & Output 03/04/17 03/05/17 03/05/17 18:59 06:59 18:59 Intake Total 780 200 Balance 780 200 Weight 58.967 kg 58.967 kg Intake: Intake, IV Titration 300 Amount Sodium Chloride 0.9% 1, 300 000 ml @ 20 mls/hr IV . Q24H VERO Rx#:[id number] Oral 480 200 Other: Voiding Method Bedside Commode Bedside Commode Bedside Commode Bedpan Bedpan Bedpan Incontinent Incontinent Incontinent # Voids 2 2 2 # Bowel Movements 0 0 0 - Exam Physical examination: PHYSICAL EXAMINATION: Patient is resting comfortably in bed. Patient appears to be more alert and attentive. She does not have much of a masslike facial expression today. She has no evidence of rest tremor. VITAL SIGNS: Blood pressure is [136/75]. Heart rate is [89]. Respiration is [20] . Temperature is [97.4]. HEENT: Head is atraumatic, neck is supple, there were no carotid bruits. CHEST: Lungs are clear to auscultation and percussion. CARDIAC: S1, S2 normal rate and rhythm. There is no murmur. ABDOMEN: Soft and nontender. Bowel sounds are present. EXTREMITIES: There is no pedal edema. Peripheral pulses are present. Neurological examination: Patient's neurological examination is unchanged from yesterday. Patient does have mild hand tremors as well as cogwheel rigidity in the upper extremities only. - Labs CBC & Chem 7: 03/05/17 08:41 03/05/17 08:41 Labs: Abnormal Lab Results - Last 24 Hours (Table) 03/05/17 Range/Units 08:41 BUN 26 H (7-17) mg/dL Assessment and Plan (1) Benign paroxysmal positional vertigo Status: Acute Code(s): H81.10 - BENIGN PAROXYSMAL VERTIGO, UNSPECIFIED EAR (2) Parkinsonism Status: Acute Code(s): G20 - PARKINSON'S DISEASE (3) Ataxic gait Status: Acute Code(s): R26.0 - ATAXIC GAIT (4) Mild cognitive impairment Status: Acute Code(s): G31.84 - MILD COGNITIVE IMPAIRMENT, SO STATED Plan: This patient is a 86-year-old female who was initially evaluated for intractable vertigo. She has responded well to Antivert and does have evidence of acute labyrinthitis. She has responded well to Antivert and should continue on the same treatment. She also has findings of mild parkinsonism and is been started on Sinemet low dose with close monitoring. She is being cleared for discharge home to the care of her daughter. Daughter is making arrangements to take her to [place] for a short rehabilitation. She may follow-up in the outpatient neurology clinic for further adjustment of her Sinemet dose when she returns back to the [facility]. Her overall prognosis at this time remains guarded. We will continue close neurological follow-up for the patient when she is discharged. She may schedule follow-up appointment when she returns back to [place] for further treatment and management. Her overall prognosis at this time remains guarded.
[2017-03-05] MEDS: SODIUM CHLORIDE 0.9% 1,000 ML IV SCH (19:45)
== END 2017-03-05 18:33 | disposition home or self-care (01) ==
LOC: EC 13:55 → 4MS4W 18:02 → INTOOBSV 18:02 → 4MS4W 19:00
PROVIDERS: ADMIT Internal Medicine; ATTEND Internal Medicine
DX: H81.10 Benign paroxysmal vertigo, unspecified ear (principal); I10 Essential (primary) hypertension; E78.5 Hyperlipidemia, unspecified; M19.90 Unspecified osteoarthritis, unspecified site; F32.9 Major depressive disorder, single episode, unspecified; G31.84 Mild cognitive impairment of uncertain or unknown etiology; G20 Parkinson's disease; M81.0 Age-related osteoporosis without current pathological fracture; G62.9 Polyneuropathy, unspecified; R26.0 Ataxic gait; I95.1 Orthostatic hypotension; Z79.899 Other long term (current) drug therapy; Z79.83 Long term (current) use of bisphosphonates; Z88.0 Allergy status to penicillin; Z82.49 Family history of ischemic heart disease and other diseases of the circulatory system
CPT/HCPCS: 96376 ×4; 96372 ×5; 96374; 99285; 36415; 94760; 95819; 93005; 97110; 97530 ×2; 97162; 80053; 80048 ×4; 82550; 82553; 84484; 85025 ×5; 85610; 85730; 70496; 70450; 70498; G0378 ×6; J1644 ×5; J2765 ×5; Q9967; S0179 ×5

== ENCOUNTER 2017-06-16 17:49 | Emergency (ER) | payer MEDICARE, BC ==
--- NOTE | 2017-06-16 19:45 | XR ---
EXAMINATION TYPE: XR ribs RT w pa chest xray DATE OF EXAM: 06/16/2017 COMPARISON: Chest x-ray 01/13/2016 HISTORY: Rib pain TECHNIQUE: 5 views FINDINGS: There is focal pleural thickening on the right lateral chest wall in the minor fissure. The re is slight blunting of right costophrenic angle. There is no pneumothorax. There is no heart failur e. Heart appears enlarged. I see no rib fracture. IMPRESSION: There is new pleural thickening and reaction in the right lower lobe compared to old exam . No heart failure. There is probably some new interstitial right lower lobe infiltrate as well. No f racture seen.
--- NOTE | 2017-06-16 19:45 | ED ---
General Adult HPI - General Chief complaint: Abdominal Pain Stated complaint: LOWER RT SIDE, NAYE Time Seen by Provider: 06/16/17 19:05 Source: patient, family, RN notes reviewed Mode of arrival: wheelchair Limitations: no limitations - History of Present Illness Initial comments: Chief complaint history of present illness an 87-year-old female here with family. The patient has had for the past 3 or 4 days increasing pain when she takes a deep breath to the right lower lateral rib cage area. To her knowledge she has not hurt herself. Direct observation does not show any rash though early shingles was discussed so that the daughter for help provider can look for this in the future. Patient denies fever denies nausea vomiting. - Related Data Home Medications Medication Instructions Recorded Confirmed Verapamil HCl [Verapamil ER] 240 mg PO DAILY 07/04/14 06/16/17 Alendronate Sodium [Fosamax] 70 mg PO AZAR 01/13/16 06/16/17 Escitalopram [Lexapro] 10 mg PO DAILY 02/28/17 06/16/17 Hydrocodone/Acetaminophen [[place] 1 tab PO Q8HR PRN 02/28/17 06/16/17 10-325 Tablet] Megestrol [Megace] 400 mg PO BID PRN 02/28/17 06/16/17 Aspirin 81 mg PO DAILY 06/16/17 06/16/17 Carbidopa/Levodopa 1 tab PO BID 06/16/17 06/16/17 [Carbidopa-Levodopa 10-100 Tab] Cholecalciferol (Vitamin D3) 2,000 unit PO DAILY 06/16/17 06/16/17 [Vitamin D3] Docusate [Colace] 100 mg PO DAILY PRN 06/16/17 06/16/17 Isosorbide Mononitrate ER [Imdur] 30 mg PO DAILY 06/16/17 06/16/17 Meclizine [Antivert] 25 mg PO BID PRN 06/16/17 06/16/17 Naproxen 500 mg PO BID 06/16/17 06/16/17 Pravastatin Sodium [Pravachol] 80 mg PO HS 06/16/17 06/16/17 Sennosides/Docusate Sodium 1 tab PO DAILY PRN 06/16/17 06/16/17 [Michelle-Colace Tablet] Previous Rx's Medication Instructions Recorded Ibuprofen [Motrin] 600 mg PO Q6HR PRN #20 tab 06/16/17 Levofloxacin [Levaquin] 500 mg PO DAILY #10 tab 06/16/17 Allergies Allergy/AdvReac Type Severity Reaction Status Date / Time Penicillins Allergy Rash/Hives Verified 06/16/17 20:06 Review of Systems ROS Statement: Those systems with pertinent positive or pertinent negative responses have been documented in the HPI. Review of systems patient is hard of hearing but denies being in any pain other than which takes deep breath which patches are in the right lower lateral rib cage area. Palpation of this area causes mild discomfort with deep breathing makes it feel much worse. Denies nausea vomiting diarrhea no apparent change in general health her attitude. No change in appetite per family. All systems are reviewed. Past medical problems significant for hyperlipidemia, hypertension osteoarthritis neuropathy . No apparent surgical history reported. Family history noncontributory. Never smoked no alcohol use ROS Other: All systems not noted in ROS Statement are negative. Past Medical History Past Medical History: Hyperlipidemia, Hypertension, Osteoarthritis (OA) Additional Past Medical History / Comment(s): neuropathy, osteoporosis History of Any Multi-Drug Resistant Organisms: None Reported Past Surgical History: No Surgical Hx Reported Past Psychological History: Depression Smoking Status: Never smoker Past Alcohol Use History: None Reported Past Drug Use History: None Reported - Past Family History Brother(s) Family Medical History: COPD, Myocardial Infarction ([place]) Mother Additional Family Medical History / Comment(s): "hardening of the arteries of the brain" General Exam - General Exam Comments Initial Comments: General: The patient is awake and hard of hearing. Reports pain with deep breathing to the right lower lateral rib cage. Vital signs shows temperature 98.3 pulse 76 respiratory rate 16 pulse ox 97% room air Eye: Pupils are equal, arcus senilis, extra-ocular movements are intact; there is normal conjunctiva bilaterally. No signs of icterus. Ears, nose, mouth and throat: There are moist mucous membranes. Neck: The neck is supple, there is no tenderness or JVD. Cardiovascular: There is a regular rate and rhythm. No murmur, rub or gallop is appreciated. Respiratory: Lungs are clear to auscultation, deep respirations causes pain to the right lower lateral rib cage. The same areas examined no evidence evidence of rash, early shingles was discussed. Gastrointestinal: No pain with deep palpation to the right upper quadrant or right lower quadrant. No nausea no vomiting no change in appetite per patient. Back: Right lower lateral rib cage pain with deep breathing Musculoskeletal: Able to move upper and lower extremities. Sits in a wheelchair all day long. Neurological: No apparent focal or lateralizing deficits. Patient is not complaining of anything new. Skin: Skin is warm and dry and no rashes or lesions are noted. Limitations: no limitations Course Vital Signs 06/16/17 06/16/17 06/16/17 18:41 20:31 21:25 Temperature 98.3 F 98.3 F 98.7 F Pulse Rate 76 73 72 Respiratory 16 18 19 Rate Blood Pressure 158/74 157/74 O2 Sat by Pulse 97 98 97 Oximetry Medical Decision Making - Medical Decision Making Medical decision making the patient's white count 12.6 hemoglobin 13 hematocrit 39, potassium 4.5 with a BUN of 28 creatinine 0.8 GFR greater than 60. Glucose 107. Chest x-ray is done and reviewed by radiologist radiologist's final impression is there is no pleural thickening and reaction in the right lower lobe compared to the old exam no heart failure. There is probably some new interstitial right lower lobe infiltrate as well. No fracture seen. As read by Dr. Grimes Patient has pleuritic pain with no onset pneumonic infiltrate. The patient will be placed on Levaquin 500 one daily for 10 days. Ibuprofen for pain. Follow-up with family physician. - Lab Data Result diagrams: 06/16/17 19:55 06/16/17 19:55 Lab Results 06/16/17 06/16/17 Range/Units 19:55 19:55 WBC 12.6 H (3.8-10.6) k/uL RBC 4.23 (3.80-5.40) m/uL Hgb 13.1 (11.4-16.0) gm/dL Hct 39.5 (34.0-46.0) % MCV 93.4 (80.0-100.0) fL MCH 30.9 (25.0-35.0) pg MCHC 33.1 (31.0-37.0) g/dL RDW 15.7 H (11.5-15.5) % Plt Count 485 H (150-450) k/uL Neutrophils % 80 % Lymphocytes % 11 % Monocytes % 7 % Eosinophils % 1 % Basophils % 0 % Neutrophils # 10.0 H (1.3-7.7) k/uL Lymphocytes # 1.3 (1.0-4.8) k/uL Monocytes # 0.9 (0-1.0) k/uL Eosinophils # 0.1 (0-0.7) k/uL Basophils # 0.0 (0-0.2) k/uL Sodium 140 (137-145) mmol/L Potassium 4.5 (3.5-5.1) mmol/L Chloride 104 (98-107) mmol/L Carbon Dioxide 22 (22-30) mmol/L Anion Gap 14 mmol/L BUN 28 H (7-17) mg/dL Creatinine 0.80 (0.52-1.04) mg/dL Est GFR (MDRD) Af Amer >60 (>60 ml/min/1.73 sqM) Est GFR (MDRD) Non-Af >60 (>60 ml/min/1.73 sqM) Glucose 109 H (74-99) mg/dL Calcium 9.5 (8.4-10.2) mg/dL Total Bilirubin 0.5 (0.2-1.3) mg/dL AST 26 (14-36) U/L ALT 33 (9-52) U/L Alkaline Phosphatase 95 (38-126) U/L Total Protein 6.7 (6.3-8.2) g/dL Albumin 3.9 (3.5-5.0) g/dL Disposition Clinical Impression: Pneumonia, Pleurisy Disposition: HOME SELF-CARE Condition: Fair Instructions: Community Acquired Pneumonia (ED), Pleurisy (ED) Additional Instructions: Take Levaquin daily for 10 days. Use ibuprofen for pain. Follow-up family physician Prescriptions: Ibuprofen [Motrin] 600 mg PO Q6HR PRN #20 tab PRN Reason: Pain Levofloxacin [Levaquin] 500 mg PO DAILY #10 tab Referrals: Rahul Borrero MD [Primary Care Provider] - 1-2 days Time of Disposition: 21:34
[2017-06-16 20:24] LABS: Basophils % (A) 0 %; CH 30.6; CHCM 32.9; Eosinophils # (A) 0.1 k/uL (0-0.7); Eosinophils % (A) 1 %; HCT 39.5 % (34.0-46.0); HDW 2.35; HGB 13.1 gm/dL (11.4-16.0); Luc % (Auto) 2; Lymphocytes # (A) 1.3 k/uL (1.0-4.8); Lymphocytes % (A) 11 %; MCH 30.9 pg (25.0-35.0); MCHC 33.1 g/dL (31.0-37.0); MCV 93.4 fL (80.0-100.0); Mean Platelet Volume 8.2; Monocytes # (A) 0.9 k/uL (0-1.0); Monocytes % (A) 7 %; Neutrophils % (A) 80 %; RBC 4.23 m/uL (3.80-5.40); RDW 15.7 % (11.5-15.5); WBC 12.6 k/uL (3.8-10.6)
[2017-06-16 20:32] LABS: ALT 33 U/L (9-52); AST 26 U/L (14-36); Alkaline Phosphatase 95 U/L (38-126); Anion Gap 14 mmol/L; Blood Urea Nitrogen 28 mg/dL (7-17); Calcium 9.5 mg/dL (8.4-10.2); Carbon Dioxide 22 mmol/L (22-30); Chloride 104 mmol/L (98-107); Glucose 109 mg/dL (74-99); Non-African American GFR(MDRD) >60 (>60 ml/min/1.73 sqM); Potassium 4.5 mmol/L (3.5-5.1); Sodium 140 mmol/L (137-145); Total Bilirubin 0.5 mg/dL (0.2-1.3); Total Protein 6.7 g/dL (6.3-8.2)
[2017-06-16] MEDS ORDERED: IBUPROFEN 600 MG STARTER PACK 4 TAB BTL PO STA (21:34)
[2017-06-16] MEDS ORDERED: LEVOFLOXACIN 500MG-D5W PMX 500 MG in DEXTROSE/WATER 1 100ML.BAG IVPB STA (21:34)
[2017-06-16 22:59] VITALS: BP 154/70; PULSE 75; RESP 18; TEMP 97.9
== END 2017-06-16 22:55 | disposition home or self-care (01) ==
LOC: EC 17:49
DX: J18.9 Pneumonia, unspecified organism (principal); R09.1 Pleurisy; E78.5 Hyperlipidemia, unspecified; I10 Essential (primary) hypertension; M19.90 Unspecified osteoarthritis, unspecified site; M81.0 Age-related osteoporosis without current pathological fracture; F32.9 Major depressive disorder, single episode, unspecified; Z79.1 Long term (current) use of non-steroidal anti-inflammatories (NSAID); Z79.82 Long term (current) use of aspirin; Z79.899 Other long term (current) drug therapy; Z88.0 Allergy status to penicillin
CPT/HCPCS: 36415; 80053; 85025; 71101; 99284; 96374; J1956

== ENCOUNTER 2018-09-20 20:59 | Inpatient (IN) | payer MEDICARE, BC ==
[2018-09-20] MEDS ORDERED: PANTOPRAZOLE 40 MG/10 ML VIAL IVP STA (22:16)
--- NOTE | 2018-09-20 22:28 | ED ---
GI Bleed HPI - General Chief complaint: GI Bleed Stated complaint: GI Bleed Time Seen by Provider: 09/20/18 21:07 Source: patient, EMS Mode of arrival: EMS Limitations: altered mental status (Underlying dementia versus delirium) - History of Present Illness Initial comments: This patient is an 88-year-old woman resident of [facility], who was transferred here from [facility]. The patient had been taken there this evening, after she had reportedly had an episode of vomiting with some bright red blood. Most of the history comes from the transfer paperwork, as the patient does appear to have some underlying dementia versus delirium. At was reported that the patient there was found to have a hemoglobin of 7.6 tonight when labs that were taken on September 18 had shown a hemoglobin of 8.9. The patient did not have any other reported hematemesis. The patient's had been given 1 unit of packed red blood cells there, and was receiving another unit of packed red blood cells during transportation here. When I interview the patient, she is not having complaints other than the fact that she is feeling thirsty. The patient is denying pain in the chest or abdomen. There is no back pain. She is not currently having any nausea or vomiting. She is not able to tell me about her last bowel movement. Also at the other hospital, the patient was given H2 marlee but they did not reportedly have any IV pump inhibitor and she did not receive that. complaint: blood streaked emesis - Related Data Home Medications Medication Instructions Recorded Confirmed Verapamil HCl [Verapamil ER] 240 mg PO HS 07/04/14 09/20/18 Escitalopram [Lexapro] 20 mg PO DAILY 02/28/17 09/20/18 Aspirin 81 mg PO DAILY 06/16/17 09/20/18 Isosorbide Mononitrate ER [Imdur] 30 mg PO DAILY 06/16/17 09/20/18 Meclizine [Antivert] 25 mg PO DAILY 06/16/17 09/20/18 Naproxen 500 mg PO Q12H PRN 06/16/17 09/20/18 Sennosides/Docusate Sodium 1 tab PO BID@0900,1700 06/16/17 09/20/18 [Michelle-Colace Tablet] Acetaminophen Tab [Tylenol Tab] 1,000 mg PO BID 09/20/18 09/20/18 Bisacodyl [Dulcolax] 10 mg PO Q48H PRN 09/20/18 09/20/18 Cetirizine HCl [Zyrtec] 10 mg PO DAILY 09/20/18 09/20/18 Fluticasone Nasal [place] [Flonase 2 spray EA NOSTRIL DAILY 09/20/18 09/20/18 Nasal [place]] Gabapentin 600 mg PO BID@0900,1700 09/20/18 09/20/18 Indapamide [Lozol] 2.5 mg PO DAILY 09/20/18 09/20/18 Magnesium Hydroxide [Milk of 7,200 mg PO DAILY PRN 09/20/18 09/20/18 Magnesia Concentrate] Melatonin 9 mg PO HS PRN 09/20/18 09/20/18 Ondansetron HCl [Zofran] 8 mg PO Q8H PRN 09/20/18 09/20/18 Polyethylene Glycol 3350 [Miralax] 17 gm PO DAILY 09/20/18 09/20/18 Pro-Stat Sugar Free 30 mg PO BID@0900,1700 09/20/18 09/20/18 guaiFENesin [guaiFENesin Oral 200 mg PO Q6H PRN 09/20/18 09/20/18 Solution] Allergies Allergy/AdvReac Type Severity Reaction Status Date / Time amlodipine [From [place]] Allergy Unknown Verified 09/20/18 21:23 amoxicillin [From Augmentin] Allergy Unknown Verified 09/20/18 21:23 atorvastatin [From [place]] Allergy Unknown Verified 09/20/18 21:23 calcitonin [From Miacalcin] Allergy Unknown Verified 09/20/18 21:23 clavulanic acid Allergy Unknown Verified 09/20/18 21:23 [From Augmentin] colesevelam [From WelChol] Allergy Unknown Verified 09/20/18 21:23 ezetimibe [From Vytorin] Allergy Unknown Verified 09/20/18 21:23 Penicillins Allergy Rash/Hives Verified 09/20/18 21:23 simvastatin [From Vytorin] Allergy Unknown Verified 09/20/18 21:23 Review of Systems ROS Statement: Those systems with pertinent positive or pertinent negative responses have been documented in the HPI. ROS Other: All systems not noted in ROS Statement are negative. Limitations: ROS unobtainable due to patients medical condition (Underlying) Constitutional: Reports: weakness (Reportedly having about 2 weeks of generalized weakness) Respiratory: Denies: cough, dyspnea Cardiovascular: Denies: chest pain, palpitations, edema Gastrointestinal: Reports: as per HPI, vomiting. Denies: abdominal pain, nausea Musculoskeletal: Denies: back pain Neurological: Denies: headache Past Medical History Past Medical History: Hyperlipidemia, Hypertension, Osteoarthritis (OA) Additional Past Medical History / Comment(s): neuropathy, osteoporosis, diverticulosis, back pain, dysphasia History of Any Multi-Drug Resistant Organisms: None Reported Past Surgical History: No Surgical Hx Reported Past Psychological History: Depression Smoking Status: Never smoker Past Alcohol Use History: None Reported Past Drug Use History: None Reported - Past Family History Brother(s) Family Medical History: COPD, Myocardial Infarction ([place]) Mother Additional Family Medical History / Comment(s): "hardening of the arteries of the brain" General Exam Limitations: no limitations General appearance: alert Head exam: Present: atraumatic, normocephalic ENT exam: Present: mucous membranes dry Neck exam: Present: full ROM. Absent: tenderness, meningismus Respiratory exam: Present: respiratory distress (Mild tachypnea), rhonchi. Absent: wheezes, rales, stridor, decreased breath sounds Cardiovascular Exam: Present: regular rate, normal rhythm, systolic murmur. Absent: diastolic murmur, rubs, gallop GI/Abdominal exam: Present: soft. Absent: distended, tenderness, guarding, rebound, rigid, mass Extremities exam: Present: normal inspection, normal capillary refill. Absent: pedal edema, calf tenderness Neurological exam: Present: alert. Absent: oriented X3, motor sensory deficit Skin exam: Present: warm, dry, intact, normal color. Absent: rash Course Vital Signs 09/20/18 09/20/18 09/21/18 21:05 23:18 00:35 Temperature 98.4 F 99.1 F Pulse Rate 98 96 94 Respiratory 24 20 20 Rate Blood Pressure 121/61 111/60 124/56 O2 Sat by Pulse 99 93 L 94 L Oximetry 09/21/18 09/21/18 09/21/18 02:06 03:17 04:06 Temperature 99.5 F Pulse Rate 93 125 H 124 H Respiratory 18 18 16 Rate Blood Pressure 120/70 117/65 107/57 O2 Sat by Pulse 96 96 97 Oximetry 09/21/18 04:08 Temperature Pulse Rate 116 H Respiratory 16 Rate Blood Pressure 98/50 O2 Sat by Pulse 96 Oximetry - Reevaluation(s) Reevaluation #1: 09/20/18 22:28 The paperwork from the outside hospital was reviewed. Also reviewed patient's CODE STATUS which is DO NOT RESUSCITATE per the form signed in May 2018. Medical Decision Making - Medical Decision Making Patient is an 88-year-old woman transferred here from [facility] for GI bleeding. Case is discussed with both the admitting physician Dr. Borrero, and with the convex grinder on-call , and there treatment recommendations are incorporated. Admission orders written. Prior to the patient being admitted she didn't go into atrial fibrillation with a rapid ventricular rate and Cardizem started. - Lab Data Result diagrams: 09/21/18 05:21 09/21/18 05:21 Lab Results 09/20/18 09/20/18 09/20/18 Range/Units 22:47 22:47 22:47 WBC 8.8 (3.8-10.6) k/uL RBC 3.41 L (3.80-5.40) m/uL Hgb 9.7 L (11.4-16.0) gm/dL Hct 29.8 L (34.0-46.0) % MCV 87.4 (80.0-100.0) fL MCH 28.3 (25.0-35.0) pg MCHC 32.4 (31.0-37.0) g/dL RDW 14.0 (11.5-15.5) % Plt Count 353 (150-450) k/uL Neutrophils % 86 % Lymphocytes % 7 % Monocytes % 5 % Eosinophils % 1 % Basophils % 0 % Neutrophils # 7.6 (1.3-7.7) k/uL Lymphocytes # 0.6 L (1.0-4.8) k/uL Monocytes # 0.5 (0-1.0) k/uL Eosinophils # 0.1 (0-0.7) k/uL Basophils # 0.0 (0-0.2) k/uL Sodium 137 (137-145) mmol/L Potassium 3.8 (3.5-5.1) mmol/L Chloride 108 H (98-107) mmol/L Carbon Dioxide 24 (22-30) mmol/L Anion Gap 5 mmol/L BUN 27 H (7-17) mg/dL Creatinine 0.50 L (0.52-1.04) mg/dL Est GFR (CKD-EPI)AfAm >90 (>60 ml/min/1.73 sqM) Est GFR (CKD-EPI)NonAf 87 (>60 ml/min/1.73 sqM) Glucose 130 H (74-99) mg/dL Calcium 8.0 L (8.4-10.2) mg/dL Troponin I 0.054 H* (0.000-0.034) ng/mL Stool Occult Blood (Negative) 09/21/18 Range/Units 00:34 WBC (3.8-10.6) k/uL RBC (3.80-5.40) m/uL Hgb (11.4-16.0) gm/dL Hct (34.0-46.0) % MCV (80.0-100.0) fL MCH (25.0-35.0) pg MCHC (31.0-37.0) g/dL RDW (11.5-15.5) % Plt Count (150-450) k/uL Neutrophils % % Lymphocytes % % Monocytes % % Eosinophils % % Basophils % % Neutrophils # (1.3-7.7) k/uL Lymphocytes # (1.0-4.8) k/uL Monocytes # (0-1.0) k/uL Eosinophils # (0-0.7) k/uL Basophils # (0-0.2) k/uL Sodium (137-145) mmol/L Potassium (3.5-5.1) mmol/L Chloride (98-107) mmol/L Carbon Dioxide (22-30) mmol/L Anion Gap mmol/L BUN (7-17) mg/dL Creatinine (0.52-1.04) mg/dL Est GFR (CKD-EPI)AfAm (>60 ml/min/1.73 sqM) Est GFR (CKD-EPI)NonAf (>60 ml/min/1.73 sqM) Glucose (74-99) mg/dL Calcium (8.4-10.2) mg/dL Troponin I (0.000-0.034) ng/mL Stool Occult Blood Positive H (Negative) Critical Care Time Critical Care Time: Yes (50 minutes) Disposition Clinical Impression: Gastrointestinal hemorrhage, Atrial fibrillation with RVR, Anemia, Elevated troponin I measurement Disposition: ADMITTED IP TO THIS HOSP Condition: Serious
[2018-09-20 22:58] LABS: Basophils % (A) 0 %; Eosinophils # (A) 0.1 k/uL (0-0.7); Eosinophils % (A) 1 %; HCT 29.8 % (34.0-46.0); HGB 9.7 gm/dL (11.4-16.0); Lymphocytes # (A) 0.6 k/uL (1.0-4.8); Lymphocytes % (A) 7 %; MCH 28.3 pg (25.0-35.0); MCHC 32.4 g/dL (31.0-37.0); MCV 87.4 fL (80.0-100.0); Mean Platelet Volume 7.6; Monocytes # (A) 0.5 k/uL (0-1.0); Monocytes % (A) 5 %; Neutrophils # (A) 7.6 k/uL (1.3-7.7); Neutrophils % (A) 86 %; Platelet Count 353 k/uL (150-450); RBC 3.41 m/uL (3.80-5.40); WBC 8.8 k/uL (3.8-10.6)
[2018-09-20 23:19] LABS: Anion Gap 5 mmol/L; Blood Urea Nitrogen 27 mg/dL (7-17); Carbon Dioxide 24 mmol/L (22-30); Chloride 108 mmol/L (98-107); Glucose 130 mg/dL (74-99); Potassium 3.8 mmol/L (3.5-5.1); Sodium 137 mmol/L (137-145)
--- NOTE | 2018-09-21 00:09 | XR ---
EXAMINATION TYPE: XR chest 1V portable DATE OF EXAM: 09/20/2018 COMPARISON: 06/16/2017 HISTORY: Pain TECHNIQUE: Single frontal view of the chest is obtained. FINDINGS: There is some coarse density at the lateral left lung base. There is no heart failure. Tho racic aorta is atheromatous. I see no pleural effusion. IMPRESSION: Minimal pleural reaction and infiltrate at the lateral left lung bases increased compare d to old exam. No heart failure. Atheromatous aorta. There is clearing of right lower lobe pneumonia compared to old exam.
[2018-09-21] MEDS ORDERED: ONDANSETRON 4 MG/2 ML VIAL IVP STA (00:12)
[2018-09-21] MEDS ORDERED: NALOXONE 0.4 MG/ML 1 ML VIAL IV PRN (00:46)
[2018-09-21] MEDS ORDERED: ONDANSETRON 4 MG/2 ML VIAL IVP PRN (00:46)
[2018-09-21] MEDS ORDERED: MAGNESIUM HYDROXIDE 2,400 MG/10 ML CUP PO PRN (01:04)
[2018-09-21] MEDS ORDERED: MORPHINE SULFATE 4 MG/ML SYRINGE IV STA (01:50)
[2018-09-21] MEDS ORDERED: MELATONIN 3 MG TABLET PO PRN (02:00)
[2018-09-21] MEDS: SODIUM CHLORIDE 0.9% 1,000 ML IV SCH ×4 (02:05→23:09)
[2018-09-21] MEDS ORDERED: DILTIAZEM DRIP BOLUS FROM BAG 1 MG SOLN IV ONE (03:20)
[2018-09-21] MEDS: DILTIAZEM 50 MG in SODIUM CHLORIDE 0.9% 40 ML IV SCH ×5 (04:01→23:09)
[2018-09-21 04:41] LABS: Glucose,Whole Blood 107 mg/dL (75-99)
[2018-09-21 05:55] LABS: Basophils % (A) 0 %; Eosinophils # (A) 0.1 k/uL (0-0.7); Eosinophils % (A) 1 %; HCT 27.2 % (34.0-46.0); HGB 8.8 gm/dL (11.4-16.0); Hypochromasia Slight; Lymphocytes # (A) 1.4 k/uL (1.0-4.8); Lymphocytes % (A) 17 %; MCH 29.4 pg (25.0-35.0); MCHC 32.5 g/dL (31.0-37.0); MCV 90.3 fL (80.0-100.0); Mean Platelet Volume 7.2; Monocytes # (A) 0.5 k/uL (0-1.0); Monocytes % (A) 6 %; Neutrophils # (A) 6.2 k/uL (1.3-7.7); Neutrophils % (A) 74 %; Platelet Count 377 k/uL (150-450); RBC 3.01 m/uL (3.80-5.40); RDW 13.9 % (11.5-15.5); WBC 8.4 k/uL (3.8-10.6)
[2018-09-21 06:15] LABS: Anion Gap 9 mmol/L; Blood Urea Nitrogen 31 mg/dL (7-17); Calcium 7.9 mg/dL (8.4-10.2); Carbon Dioxide 21 mmol/L (22-30); Chloride 111 mmol/L (98-107); Glucose 106 mg/dL (74-99); Magnesium 1.6 mg/dL (1.6-2.3); Phosphorus 3.7 mg/dL (2.5-4.5); Potassium 3.4 mmol/L (3.5-5.1); Sodium 141 mmol/L (137-145)
[2018-09-21 06:17] LABS: Appearance,Urine Turbid (Clear); Bacteria,Urine Moderate /hpf; Bilirubin,Urine Negative (Negative); Blood,Urine Small (Negative); Color,Urine Yellow; Glucose,Urine (UA) Negative (Negative); Ketones,Urine Trace (Negative); Leukocyte Esterase,Urine Large (Negative); Mucus,Urine Rare /hpf; Nitrite,Urine Positive (Negative); PH, Urine 5.5 (5.0-8.0); Protein,Urine 1+ (Negative); RBC,Urine 6 /hpf (0-5); Specific Gravity,Urine 1.015 (1.001-1.035); Urobilinogen,Urine <2.0 mg/dL (<2.0)
[2018-09-21] MEDS ORDERED: BISACODYL 5 MG TABLET.DR PO PRN (07:00)
[2018-09-21] MEDS ORDERED: Potassium Replacement Protocol 1 EACH MISC MISCELLANE PRN ×2 (07:42→13:36)
[2018-09-21] MEDS ORDERED: Magnesium Replacement Protocol 1 EACH MISC MISCELLANE PRN (07:42)
[2018-09-21] MEDS: POTASSIUM CHLORIDE 10 MEQ in WATER FOR INJECTION 1 100ML.BAG IVPB SCH ×6 (08:53→17:17)
[2018-09-21] MEDS: MAGNESIUM SULFATE-D5W PMX 1 GM in DEXTROSE/WATER 1 100ML.BAG IVPB SCH ×2 (08:58→10:22)
[2018-09-21] MEDS ORDERED: PANTOPRAZOLE 40 MG/10 ML VIAL IV SCH (09:00)
[2018-09-21] MEDS: ESCITALOPRAM 20 MG TAB PO SCH (09:02)
[2018-09-21] MEDS: POLYETHYLENE GLYCOL 3350 17 GM POWD.PACK PO SCH (09:03)
[2018-09-21] MEDS: ISOSORBIDE MONONITRATE ER 30 MG TAB.ER.24H PO SCH (09:03)
[2018-09-21] MEDS: GABAPENTIN 300 MG CAP PO SCH ×2 (09:03→17:19)
[2018-09-21] MEDS: LORATADINE 10 MG TAB PO SCH (09:03)
[2018-09-21] MEDS: MECLIZINE 25 MG TAB PO SCH (09:03)
[2018-09-21] MEDS: INDAPAMIDE 2.5 MG TAB PO SCH (09:03)
[2018-09-21] MEDS: SENNOSIDES-DOCUSATE SODIUM 1 EACH TAB PO SCH ×2 (09:03→17:19)
--- NOTE | 2018-09-21 09:39 | P.CNPUL ---
History of Present Illness Consult date: 09/21/18 Requesting physician: Rahul Borrero Reason for consult: other Chief complaint: GI bleed, urinary tract infection, A. fib RVR History of present illness: This is a 88-year-old female patient of Dr. Perkins, who resides in [facility], was transferred here to the emergency department on 09/20/2018 from the [facility], after she had hematemesis and melena. Patient has a history of dementia, hypertension, depression, parkinsonism, CAD, diverticular disease, osteoporosis. The patient is a poor historian, due to underlying dementia. The [facility] patient's hemoglobin was 7.6, which was a drop from a previous abdominal September 18 of a hemoglobin of 8.9.. Patient was transfused with 1 unit of packed red blood cells at the [facility], and received 1 more unit here. She seems to be fairly comfortable, were seen the patient in the intensive care this morning. She is awake and alert, responding verbally, her nephews at the bedside and could not provide much information on her medical history. Patient was found to be in A. fib RVR with a rate of 130 BPM, is appears to be new onset A. fib for this patient. Chest x-ray shows shows tiny pleural effusions. Globin after transfusion with 2 units of pack red blood cells went up to 9.7, and this morning is 8.8. Troponins were related to 0.054, and 0.055. Urinalysis turbid urine with large leuks, white cells in clumps and red blood cells and moderate bacteria. Occult stool was positive. Patient has not had any more imaging to emesis or melena at this hospital. Currently she is on maintenance IV fluids with 0.9 normal saline at a rate of 125 an hour, and Cardizem drip at 10 mg per hour for rate control, and she remains in A. fib with a rate of 113 BPM. Lung sounds are clear, abdomen is soft and nontender. Is unknown whether the patient had previous episodes of GI bleeding, she is on baby aspirin a day at home, no other blood thinners. Review of Systems All systems: negative Constitutional: Denies chills, Denies fever Eyes: denies blurred vision, denies pain Ears, nose, mouth and throat: Denies headache, Denies sore throat Cardiovascular: Denies chest pain, Denies shortness of breath Respiratory: Denies cough Gastrointestinal: Reports hematemesis, Reports melena, Denies abdominal pain, Denies diarrhea, Denies nausea, Denies vomiting Genitourinary: Denies dysuria, Denies hematuria Musculoskeletal: Denies myalgias Integumentary: Denies pruritus, Denies rash Neurological: Denies numbness, Denies weakness Psychiatric: Denies anxiety, Denies depression Endocrine: Denies fatigue, Denies weight change Past Medical History Past Medical History: Hyperlipidemia, Hypertension, Osteoarthritis (OA) Additional Past Medical History / Comment(s): neuropathy, osteoporosis, diverticulosis, back pain, dysphasia History of Any Multi-Drug Resistant Organisms: None Reported Past Surgical History: No Surgical Hx Reported Past Psychological History: Depression Smoking Status: Never smoker Past Alcohol Use History: None Reported Past Drug Use History: None Reported - Past Family History Brother(s) Family Medical History: COPD, Myocardial Infarction ([place]) Mother Additional Family Medical History / Comment(s): "hardening of the arteries of the brain" Medications and Allergies Home Medications Medication Instructions Recorded Confirmed Type Verapamil HCl [Verapamil ER] 240 mg PO HS 07/04/14 09/20/18 History Escitalopram [Lexapro] 20 mg PO DAILY 02/28/17 09/20/18 History Aspirin 81 mg PO DAILY 06/16/17 09/20/18 History Isosorbide Mononitrate ER [Imdur] 30 mg PO DAILY 06/16/17 09/20/18 History Meclizine [Antivert] 25 mg PO DAILY 06/16/17 09/20/18 History Naproxen 500 mg PO Q12H PRN 06/16/17 09/20/18 History Sennosides/Docusate Sodium 1 tab PO BID@0900,1700 06/16/17 09/20/18 History [Michelle-Colace Tablet] Acetaminophen Tab [Tylenol Tab] 1,000 mg PO BID 09/20/18 09/20/18 History Bisacodyl [Dulcolax] 10 mg PO Q48H PRN 09/20/18 09/20/18 History Cetirizine HCl [Zyrtec] 10 mg PO DAILY 09/20/18 09/20/18 History Fluticasone Nasal [place] [Flonase 2 spray EA NOSTRIL DAILY 09/20/18 09/20/18 History Nasal [place]] Gabapentin 600 mg PO BID@0900,1700 09/20/18 09/20/18 History Indapamide [Lozol] 2.5 mg PO DAILY 09/20/18 09/20/18 History Magnesium Hydroxide [Milk of 7,200 mg PO DAILY PRN 09/20/18 09/20/18 History Magnesia Concentrate] Melatonin 9 mg PO HS PRN 09/20/18 09/20/18 History Ondansetron HCl [Zofran] 8 mg PO Q8H PRN 09/20/18 09/20/18 History Polyethylene Glycol 3350 [Miralax] 17 gm PO DAILY 09/20/18 09/20/18 History Pro-Stat Sugar Free 30 mg PO BID@0900,1700 09/20/18 09/20/18 History guaiFENesin [guaiFENesin Oral 200 mg PO Q6H PRN 09/20/18 09/20/18 History Solution] Allergies Allergy/AdvReac Type Severity Reaction Status Date / Time amlodipine [From Caduet] Allergy Unknown Verified 09/20/18 21:23 amoxicillin [From Augmentin] Allergy Unknown Verified 09/20/18 21:23 atorvastatin [From Caduet] Allergy Unknown Verified 09/20/18 21:23 calcitonin [From Miacalcin] Allergy Unknown Verified 09/20/18 21:23 clavulanic acid Allergy Unknown Verified 09/20/18 21:23 [From Augmentin] colesevelam [From WelChol] Allergy Unknown Verified 09/20/18 21:23 ezetimibe [From Vytorin] Allergy Unknown Verified 09/20/18 21:23 Penicillins Allergy Rash/Hives Verified 09/20/18 21:23 simvastatin [From Vytorin] Allergy Unknown Verified 09/20/18 21:23 Physical Exam Vitals: Vital Signs Temp Pulse Resp BP Pulse Ox 09/21/18 07:30 120 H 20 117/60 97 09/21/18 07:00 124 H 21 100/81 97 09/21/18 06:30 125 H 15 99/65 97 09/21/18 06:00 137 H 22 117/72 98 09/21/18 05:45 156 H 4 L 112/70 98 09/21/18 05:30 120 H 14 112/78 98 09/21/18 05:15 134 H 22 99/71 97 09/21/18 05:00 141 H 20 121/53 98 09/21/18 04:45 98.6 F 131 H 17 119/74 97 09/21/18 04:08 116 H 16 98/50 96 09/21/18 04:06 124 H 16 107/57 97 09/21/18 03:17 125 H 18 117/65 96 09/21/18 02:06 99.5 F 93 18 120/70 96 09/21/18 00:35 94 20 124/56 94 L 09/20/18 23:18 99.1 F 96 20 111/60 93 L 09/20/18 21:05 98.4 F 98 24 121/61 99 Intake and Output 09/20/18 09/21/18 09/21/18 22:59 06:59 14:59 Intake Total 262.083 125 Output Total 120 45 Balance 142.083 80 Intake: IV 250 125 Sodium Chloride 0.9% 1, 250 125 000 ml @ 125 mls/hr IV . Q8H VERO Rx#:[id number] Intake, IV Titration 12.083 Amount Diltiazem 50 mg In Sodium 12.083 Chloride 0.9% 40 ml @ 10 MG/HR 10 mls/hr IV .Q5H VERO Rx#:[id number] Output: Urine 120 45 Other: Voiding Method Indwelling Catheter Weight 64.864 kg 89.8 kg GENERAL EXAM: Alert, 88-year-old white female, somewhat of a flat affect, comfortable in no apparent distress. She is not verbally responding, patient has underlying fdementia HEAD: Normocephalic/atraumatic. EYES: Normal reaction of pupils, equal size. Conjunctiva pink, sclera white. NOSE: Clear with pink turbinates. THROAT: No erythema or exudates. NECK: No masses, no JVD, no thyroid enlargement, no adenopathy. CHEST: No chest wall deformity. Symmetrical expansion. LUNGS: Equal air entry with no crackles, wheeze, rhonchi or dullness. CVS: Irregular rate and rhythm, normal S1 and S2, no gallops, no murmurs, no rubs ABDOMEN: Soft, nontender. No hepatosplenomegaly, normal bowel sounds, no guarding or rigidity. EXTREMITIES: No clubbing, no edema, no cyanosis, 2+ pulses and upper and lower extremities. MUSCULOSKELETAL: Muscle strength and tone normal. SPINE: No scoliosis or deformity SKIN: No rashes CENTRAL NERVOUS SYSTEM: Alert and oriented -3. No focal deficits, tone is normal in all 4 extremities. PSYCHIATRIC: Alert and oriented -3. Appropriate affect. Intact judgment and insight. Results - Laboratory Findings CBC and BMP: 09/21/18 05:21 09/21/18 05:21 Abnormal lab findings: Abnormal Labs 09/20/18 09/20/18 09/20/18 22:47 22:47 22:47 RBC 3.41 L Hgb 9.7 L Hct 29.8 L Lymphocytes # 0.6 L Potassium Chloride 108 H Carbon Dioxide BUN 27 H Creatinine 0.50 L Glucose 130 H POC Glucose (mg/dL) Calcium 8.0 L Troponin I 0.054 H* Urine Appearance Urine Protein Urine Ketones Urine Blood Urine Nitrite Ur Leukocyte Esterase Urine RBC Urine WBC Clumps Urine Bacteria Urine Mucus Stool Occult Blood 09/21/18 09/21/18 09/21/18 00:34 04:30 05:21 RBC Hgb Hct Lymphocytes # Potassium Chloride Carbon Dioxide BUN Creatinine Glucose POC Glucose (mg/dL) 107 H Calcium Troponin I 0.055 H* Urine Appearance Urine Protein Urine Ketones Urine Blood Urine Nitrite Ur Leukocyte Esterase Urine RBC Urine WBC Clumps Urine Bacteria Urine Mucus Stool Occult Blood Positive H 09/21/18 09/21/18 09/21/18 05:21 05:21 05:30 RBC 3.01 L Hgb 8.8 L Hct 27.2 L Lymphocytes # Potassium 3.4 L Chloride 111 H Carbon Dioxide 21 L BUN 31 H Creatinine Glucose 106 H POC Glucose (mg/dL) Calcium 7.9 L Troponin I Urine Appearance Turbid H Urine Protein 1+ H Urine Ketones Trace H Urine Blood Small H Urine Nitrite Positive H Ur Leukocyte Esterase Large H Urine RBC 6 H Urine WBC Clumps Many H Urine Bacteria Moderate H Urine Mucus Rare H Stool Occult Blood - Diagnostic Findings Chest x-ray: report reviewed, image reviewed Additional studies: EKG reviewed Assessment and Plan Plan: Assessment: #1. Acute blood loss anemia secondary to acute upper GI bleeding #2. History of diverticular disease #3. New onset A. fib RVR #4. Acute urinary tract infection #5. Cognitive deficit related to underlying dementia #6. Parkinsonism and gait dysfunction #7. Essential hypertension #8. History of depression #9. Atherosclerotic heart disease #10. Osteoporosis Plan: Patient has been transfused with 2 units of packed red blood cells, continue with IV fluids at a rate of 125 ML per hour, Cardizem drip for rate control. GI service has been consulted. Continue with PPI therapy. Add some IV Rocephin for the UTI will await the final culture. Continue with serial CBCs. Will remain nothing by mouth for now. She will remain in the intensive care unit today. I performed a history & physical examination of the patient and discussed their management with my nurse practitioner, Luz Olivarez. I reviewed the nurse practitioner's note and agree with the documented findings and plan of care. Lung sounds are clear. The findings and the impression was discussed with the patient. I attest to the documentation by the nurse practitioner. Time with Patient: Greater than 30
[2018-09-21] MEDS: FLUTICASONE 50MCG/SPRAY NASAL 16GM EA NOSTRIL SCH (10:00)
--- NOTE | 2018-09-21 10:09 | P.HPIM ---
History of Present Illness H&P Date: 09/21/18 Chief Complaint: GI bleed This is an 88-year-old female patient of Dr. Perkins. Patient presented with complaints of upper GI bleed. Patient currently resides at [facility]. Patient apparently had an episode of vomiting with some bright red blood. Patient was then taken to The hospital and transferred to [facility] for further evaluation. Patient did receive 2 units PRBCs at [facility]. Patient has known past medical history of hyperlipidemia, hypertension, osteoarthritis, Osteoporosis, diverticulosis, and depression. EKG completed also showing patient in new-onset atrial fibrillation with rapid ventricular response with heart rate of 1:30. Patient started on Cardizem drip. Troponin levels 0.054 0.055. Chest x-ray completed repleted showing minimal pleural reaction and infiltrate at the lateral left lung base is increased compared to old exam. No heart failure. A tremendous aortic. There is clearing of right upper lobe pneumonia compared to old exam. Urinary analysis completed showing large amounts of leukocyte esterase. Patient started on Rocephin. Per nursing staff patient also having maroon stools. Stool occult blood was positive. Dr. Brunson has been consulted for GI services. Dr. Sweeney following for critical management and cardiology services consulted for new onset atrial fibrillation. This time patient appears comfortable resting in bed. Patient denies any chest pain or shortness of breath. Review of Systems Please refer to HPI otherwise unremarkable Past Medical History Past Medical History: Hyperlipidemia, Hypertension, Osteoarthritis (OA) Additional Past Medical History / Comment(s): neuropathy, osteoporosis, diverticulosis, back pain, dysphasia History of Any Multi-Drug Resistant Organisms: None Reported Past Surgical History: No Surgical Hx Reported Past Psychological History: Depression Smoking Status: Never smoker Past Alcohol Use History: None Reported Past Drug Use History: None Reported - Past Family History Brother(s) Family Medical History: COPD, Myocardial Infarction ([place]) Mother Additional Family Medical History / Comment(s): "hardening of the arteries of the brain" Medications and Allergies Home Medications Medication Instructions Recorded Confirmed Type Verapamil HCl [Verapamil ER] 240 mg PO HS 07/04/14 09/20/18 History Escitalopram [Lexapro] 20 mg PO DAILY 02/28/17 09/20/18 History Aspirin 81 mg PO DAILY 06/16/17 09/20/18 History Isosorbide Mononitrate ER [Imdur] 30 mg PO DAILY 06/16/17 09/20/18 History Meclizine [Antivert] 25 mg PO DAILY 06/16/17 09/20/18 History Naproxen 500 mg PO Q12H PRN 06/16/17 09/20/18 History Sennosides/Docusate Sodium 1 tab PO BID@0900,1700 06/16/17 09/20/18 History [Michelle-Colace Tablet] Acetaminophen Tab [Tylenol Tab] 1,000 mg PO BID 09/20/18 09/20/18 History Bisacodyl [Dulcolax] 10 mg PO Q48H PRN 09/20/18 09/20/18 History Cetirizine HCl [Zyrtec] 10 mg PO DAILY 09/20/18 09/20/18 History Fluticasone Nasal [place] [Flonase 2 spray EA NOSTRIL DAILY 09/20/18 09/20/18 History Nasal [place]] Gabapentin 600 mg PO BID@0900,1700 09/20/18 09/20/18 History Indapamide [Lozol] 2.5 mg PO DAILY 09/20/18 09/20/18 History Magnesium Hydroxide [Milk of 7,200 mg PO DAILY PRN 09/20/18 09/20/18 History Magnesia Concentrate] Melatonin 9 mg PO HS PRN 09/20/18 09/20/18 History Ondansetron HCl [Zofran] 8 mg PO Q8H PRN 09/20/18 09/20/18 History Polyethylene Glycol 3350 [Miralax] 17 gm PO DAILY 09/20/18 09/20/18 History Pro-Stat Sugar Free 30 mg PO BID@0900,1700 09/20/18 09/20/18 History guaiFENesin [guaiFENesin Oral 200 mg PO Q6H PRN 09/20/18 09/20/18 History Solution] Allergies Allergy/AdvReac Type Severity Reaction Status Date / Time amlodipine [From Caduet] Allergy Unknown Verified 09/20/18 21:23 amoxicillin [From Augmentin] Allergy Unknown Verified 09/20/18 21:23 atorvastatin [From Caduet] Allergy Unknown Verified 09/20/18 21:23 calcitonin [From Miacalcin] Allergy Unknown Verified 09/20/18 21:23 clavulanic acid Allergy Unknown Verified 09/20/18 21:23 [From Augmentin] colesevelam [From WelChol] Allergy Unknown Verified 09/20/18 21:23 ezetimibe [From Vytorin] Allergy Unknown Verified 09/20/18 21:23 Penicillins Allergy Rash/Hives Verified 09/20/18 21:23 simvastatin [From Vytorin] Allergy Unknown Verified 09/20/18 21:23 Physical Exam Vitals: Vital Signs Temp Pulse Resp BP Pulse Ox 09/21/18 07:30 120 H 20 117/60 97 09/21/18 07:00 124 H 21 100/81 97 09/21/18 06:30 125 H 15 99/65 97 09/21/18 06:00 137 H 22 117/72 98 09/21/18 05:45 156 H 4 L 112/70 98 09/21/18 05:30 120 H 14 112/78 98 09/21/18 05:15 134 H 22 99/71 97 09/21/18 05:00 141 H 20 121/53 98 09/21/18 04:45 98.6 F 131 H 17 119/74 97 09/21/18 04:08 116 H 16 98/50 96 09/21/18 04:06 124 H 16 107/57 97 09/21/18 03:17 125 H 18 117/65 96 09/21/18 02:06 99.5 F 93 18 120/70 96 09/21/18 00:35 94 20 124/56 94 L 09/20/18 23:18 99.1 F 96 20 111/60 93 L 09/20/18 21:05 98.4 F 98 24 121/61 99 Intake and Output 09/20/18 09/21/18 09/21/18 22:59 06:59 14:59 Intake Total 262.083 125 Output Total 120 45 Balance 142.083 80 Intake: IV 250 125 Sodium Chloride 0.9% 1, 250 125 000 ml @ 125 mls/hr IV . Q8H VERO Rx#:[id number] Intake, IV Titration 12.083 Amount Diltiazem 50 mg In Sodium 12.083 Chloride 0.9% 40 ml @ 10 MG/HR 10 mls/hr IV .Q5H VERO Rx#:[id number] Output: Urine 120 45 Other: Voiding Method Indwelling Catheter Weight 64.864 kg 89.8 kg Head normocephalic Neck supple Lungs clear to auscultation bilaterally no wheezing or crackles Heart regular rate and rhythm S1-S2, no rub or gallop Abdomen is soft nontender nondistended positive bowel sounds no hepatosplenomegaly Extremities no edema Neuro alert and orientated to 3 Results CBC & Chem 7: 09/21/18 05:21 09/21/18 05:21 Labs: Abnormal Lab Results - Last 24 Hours (Table) 09/20/18 09/20/18 09/20/18 Range/Units 22:47 22:47 22:47 RBC 3.41 L (3.80-5.40) m/uL Hgb 9.7 L (11.4-16.0) gm/dL Hct 29.8 L (34.0-46.0) % Lymphocytes # 0.6 L (1.0-4.8) k/uL Potassium (3.5-5.1) mmol/L Chloride 108 H (98-107) mmol/L Carbon Dioxide (22-30) mmol/L BUN 27 H (7-17) mg/dL Creatinine 0.50 L (0.52-1.04) mg/dL Glucose 130 H (74-99) mg/dL POC Glucose (mg/dL) (75-99) mg/dL Calcium 8.0 L (8.4-10.2) mg/dL Troponin I 0.054 H* (0.000-0.034) ng/mL Urine Appearance (Clear) Urine Protein (Negative) Urine Ketones (Negative) Urine Blood (Negative) Urine Nitrite (Negative) Ur Leukocyte Esterase (Negative) Urine RBC (0-5) /hpf Urine WBC (0-5) /hpf Urine WBC Clumps (None) /hpf Urine Bacteria (None) /hpf Urine Mucus (None) /hpf Stool Occult Blood (Negative) 09/21/18 09/21/18 09/21/18 Range/Units 00:34 04:30 05:21 RBC (3.80-5.40) m/uL Hgb (11.4-16.0) gm/dL Hct (34.0-46.0) % Lymphocytes # (1.0-4.8) k/uL Potassium (3.5-5.1) mmol/L Chloride (98-107) mmol/L Carbon Dioxide (22-30) mmol/L BUN (7-17) mg/dL Creatinine (0.52-1.04) mg/dL Glucose (74-99) mg/dL POC Glucose (mg/dL) 107 H (75-99) mg/dL Calcium (8.4-10.2) mg/dL Troponin I 0.055 H* (0.000-0.034) ng/mL Urine Appearance (Clear) Urine Protein (Negative) Urine Ketones (Negative) Urine Blood (Negative) Urine Nitrite (Negative) Ur Leukocyte Esterase (Negative) Urine RBC (0-5) /hpf Urine WBC (0-5) /hpf Urine WBC Clumps (None) /hpf Urine Bacteria (None) /hpf Urine Mucus (None) /hpf Stool Occult Blood Positive H (Negative) 09/21/18 09/21/18 09/21/18 Range/Units 05:21 05:21 05:30 RBC 3.01 L (3.80-5.40) m/uL Hgb 8.8 L (11.4-16.0) gm/dL Hct 27.2 L (34.0-46.0) % Lymphocytes # (1.0-4.8) k/uL Potassium 3.4 L (3.5-5.1) mmol/L Chloride 111 H (98-107) mmol/L Carbon Dioxide 21 L (22-30) mmol/L BUN 31 H (7-17) mg/dL Creatinine (0.52-1.04) mg/dL Glucose 106 H (74-99) mg/dL POC Glucose (mg/dL) (75-99) mg/dL Calcium 7.9 L (8.4-10.2) mg/dL Troponin I (0.000-0.034) ng/mL Urine Appearance Turbid H (Clear) Urine Protein 1+ H (Negative) Urine Ketones Trace H (Negative) Urine Blood Small H (Negative) Urine Nitrite Positive H (Negative) Ur Leukocyte Esterase Large H (Negative) Urine RBC 6 H (0-5) /hpf Urine WBC >182 H (0-5) /hpf Urine WBC Clumps Many H (None) /hpf Urine Bacteria Moderate H (None) /hpf Urine Mucus Rare H (None) /hpf Stool Occult Blood (Negative) Thrombosis Risk Factor Assmnt - Choose All That Apply Each Factor Represents 1 point: Medical pt on bed rest Each Risk Factor Represents 3 Points: Age 75 years or older Thrombosis Risk Factor Assessment Total Risk Factor Score: 4 Thrombosis Risk Factor Assessment Level: Moderate Risk Assessment and Plan Assessment: 1. Acute blood loss anemia secondary to GI bleed. Patient received 2 units PRBCs. Current hemoglobin 8.8. Dr. Brunson has been consulted for GI services. Stool occult blood positive. 2. New onset atrial fibrillation with rapid ventricular response. Heart rate in the 130s. Cardiology services have been consulted. 2-D echo has been ordered 3. Urinary tract infection. Patient started on Rocephin. Urine culture ordered 4. Elevated cardiac enzymes. Troponin level 0.054 and 0.055. Cardiology services have been consulted 5. History of diverticular disease 6. Underlining dementia 7. History of essential hypertension 8. History of parkinsonism 9. History of hyperlipidemia 10. History of osteoarthritis DVT prophylaxis SCDs. GI prophylaxis Protonix Time with Patient: Greater than 30 (Greater than 60% of the total time spent in counseling and coordination of care. I performed an examination of the patient and discussed their management with the Nurse Practitioner. I have reviewed the Nurse Practitioner's notes and agree with the documented findings and plan of care)
--- NOTE | 2018-09-21 12:34 | ECHOF ---
Referral Reason:new onset afib MEASUREMENTS -------- HEIGHT: 167.6 cm WEIGHT: 89.4 kg BP: 116/67 RVIDd: 2.3 cm (< 3.3) IVSd: 1.7 cm (0.6 - 1.1) LVIDd: 2.9 cm (3.9 - 5.3) LVPWd: 1.4 cm (0.6 - 1.1) IVSs: 1.8 cm LVIDs: 2.0 cm LVPWs: 1.7 cm LA Diam: 1.7 cm (2.7 - 3.8) LAESV Index (A-L): 34.55 ml/m Ao Diam: 2.9 cm (2.0 - 3.7) AV Cusp: 1.8 cm (1.5 - 2.6) LA Diam: 3.5 cm (2.7 - 3.8) AR PHT: 142 ms RAP: 5.00 mmHg RVSP: 28.98 mmHg FINDINGS -------- Atrial fibrillation. This was a technically difficult study with suboptimal views. There is moderate concentric left ventricular hypertrophy. Overall left ventricular systolic functi on is normal with, an EF between 60 - 65 %. The right ventricle is normal in size. LA is moderately dilated 34-39 ml/m2 The right atrium is normal in size. Lumason used Aortic valve is trileaflet and is mildly thickened. Trace amount of aortic regurgitation. The mitral valve leaflets are mildly thickened. Mild mitral regurgitation is present. Mild tricuspid regurgitation present. The right ventricular systolic pressure, as measured by Doppl er, is 28.98mmHg. Pulmonic valve appears structurally normal. The aortic root size is normal. IVC Not well visulized. The pericardium is normal. CONCLUSIONS -------- 1. Atrial fibrillation. 2. This was a technically difficult study with suboptimal views. 3. There is moderate concentric left ventricular hypertrophy. 4. Overall left ventricular systolic function is normal with, an EF between 60 - 65 %. 5. The right ventricle is normal in size. 6. LA is moderately dilated 34-39 ml/m2 7. The right atrium is normal in size. 8. Lumason used 9. Aortic valve is trileaflet and is mildly thickened. 10. Trace amount of aortic regurgitation. 11. The mitral valve leaflets are mildly thickened. 12. Mild mitral regurgitation is present. 13. Mild tricuspid regurgitation present. 14. The right ventricular systolic pressure, as measured by Doppler, is 28.98mmHg. 15. Pulmonic valve appears structurally normal. 16. The aortic root size is normal. 17. IVC Not well visulized. 18. The pericardium is normal. DIE CAST DIE MAKER: Jovita Fox RDCS
[2018-09-21 12:58] LABS: HCT 27.6 % (34.0-46.0); HGB 8.5 gm/dL (11.4-16.0); Hypochromasia Moderate; MCH 27.8 pg (25.0-35.0); MCHC 30.6 g/dL (31.0-37.0); MCV 90.8 fL (80.0-100.0); Mean Platelet Volume 7.3; Platelet Count 357 k/uL (150-450); RBC 3.04 m/uL (3.80-5.40); RDW 13.9 % (11.5-15.5); WBC 7.9 k/uL (3.8-10.6)
--- NOTE | 2018-09-21 17:30 | P.CONS ---
History of Present Illness - Reason for Consult Consult date: 09/21/18 GI bleed Requesting physician: Rahul Borrero - Chief Complaint Vomiting blood - History of Present Illness 88-year-old female with a medical history significant for dyslipidemia, hypertension, osteoarthritis, diverticular disease and depression who presented from her snf after a witnessed episode of vomiting with bright red blood noted in the vomitus. The patient was initially seen at an outside hospital was transferred to [facility] after receiving 2 units of packed red blood cells. Initially on presentation the patient's hemoglobin was found to be done 9.7 subsequently this trended down to 8.8 and was found to be stable at 8.5 on repeat blood draw this afternoon. Since being admitted to the hospital the patient was noted to have new onset atrial fibrillation with RVR and has been started on a Cardizem drip. In addition the patient is being treated with Rocephin for a likely urinary tract infection. Since presentation she has had 2 episodes of maroon-colored bowel movements. One bowel movement overnight and 1 today with no further bleeding noted per the nursing staff. The patient is very lethargic and is unable to provide any history or a review of systems. History is been taken from a combination of examination of the medical record and in discussion with the nursing staff the medical team. She is currently on a treatment plan which includes Protonix 40 mg IV twice daily. Review of Systems Unable to obtain given patients lethargy and poor mentation. Past Medical History Past Medical History: Hyperlipidemia, Hypertension, Osteoarthritis (OA) Additional Past Medical History / Comment(s): neuropathy, osteoporosis, diverticulosis, back pain, dysphasia History of Any Multi-Drug Resistant Organisms: None Reported Past Surgical History: No Surgical Hx Reported Past Psychological History: Depression Smoking Status: Never smoker Past Alcohol Use History: None Reported Past Drug Use History: None Reported - Past Family History Brother(s) Family Medical History: COPD, Myocardial Infarction (MT) Mother Additional Family Medical History / Comment(s): "hardening of the arteries of the brain" Medications and Allergies Home Medications Medication Instructions Recorded Confirmed Type Verapamil HCl [Verapamil ER] 240 mg PO HS 07/04/14 09/20/18 History Escitalopram [Lexapro] 20 mg PO DAILY 02/28/17 09/20/18 History Aspirin 81 mg PO DAILY 06/16/17 09/20/18 History Isosorbide Mononitrate ER [Imdur] 30 mg PO DAILY 06/16/17 09/20/18 History Meclizine [Antivert] 25 mg PO DAILY 06/16/17 09/20/18 History Naproxen 500 mg PO Q12H PRN 06/16/17 09/20/18 History Sennosides/Docusate Sodium 1 tab PO BID@0900,1700 06/16/17 09/20/18 History [Michelle-Colace Tablet] Acetaminophen Tab [Tylenol Tab] 1,000 mg PO BID 09/20/18 09/20/18 History Bisacodyl [Dulcolax] 10 mg PO Q48H PRN 09/20/18 09/20/18 History Cetirizine HCl [Zyrtec] 10 mg PO DAILY 09/20/18 09/20/18 History Fluticasone Nasal [place] [Flonase 2 spray EA NOSTRIL DAILY 09/20/18 09/20/18 History Nasal [place]] Gabapentin 600 mg PO BID@0900,1700 09/20/18 09/20/18 History Indapamide [Lozol] 2.5 mg PO DAILY 09/20/18 09/20/18 History Magnesium Hydroxide [Milk of 7,200 mg PO DAILY PRN 09/20/18 09/20/18 History Magnesia Concentrate] Melatonin 9 mg PO HS PRN 09/20/18 09/20/18 History Ondansetron HCl [Zofran] 8 mg PO Q8H PRN 09/20/18 09/20/18 History Polyethylene Glycol 3350 [Miralax] 17 gm PO DAILY 09/20/18 09/20/18 History Pro-Stat Sugar Free 30 mg PO BID@0900,1700 09/20/18 09/20/18 History guaiFENesin [guaiFENesin Oral 200 mg PO Q6H PRN 09/20/18 09/20/18 History Solution] Allergies Allergy/AdvReac Type Severity Reaction Status Date / Time amlodipine [From Caduet] Allergy Unknown Verified 09/20/18 21:23 amoxicillin [From Augmentin] Allergy Unknown Verified 09/20/18 21:23 atorvastatin [From Caduet] Allergy Unknown Verified 09/20/18 21:23 calcitonin [From Miacalcin] Allergy Unknown Verified 09/20/18 21:23 clavulanic acid Allergy Unknown Verified 09/20/18 21:23 [From Augmentin] colesevelam [From WelChol] Allergy Unknown Verified 09/20/18 21:23 ezetimibe [From Vytorin] Allergy Unknown Verified 09/20/18 21:23 Penicillins Allergy Rash/Hives Verified 09/20/18 21:23 simvastatin [From Vytorin] Allergy Unknown Verified 09/20/18 21:23 Physical Exam Vitals: Vital Signs Temp Pulse Resp BP Pulse Ox 09/21/18 14:30 101 H 17 116/88 95 09/21/18 14:00 118 H 18 111/55 97 09/21/18 13:30 87 15 99/55 96 09/21/18 13:00 89 19 99/47 98 09/21/18 12:30 90 19 99/63 98 09/21/18 12:00 98 F 97 19 109/49 96 09/21/18 11:30 98 19 96/53 96 09/21/18 11:00 81 20 109/50 97 09/21/18 10:30 108 H 19 111/53 97 09/21/18 10:00 103 H 17 116/67 97 09/21/18 09:30 115 H 18 116/62 99 09/21/18 09:00 112 H 20 97/56 97 09/21/18 08:30 109 H 18 113/72 99 09/21/18 08:00 97.7 F 101 H 19 113/62 98 09/21/18 07:30 120 H 20 117/60 97 09/21/18 07:00 124 H 21 100/81 97 09/21/18 06:30 125 H 15 99/65 97 09/21/18 06:00 137 H 22 117/72 98 09/21/18 05:45 156 H 4 L 112/70 98 09/21/18 05:30 120 H 14 112/78 98 09/21/18 05:15 134 H 22 99/71 97 09/21/18 05:00 141 H 20 121/53 98 09/21/18 04:45 98.6 F 131 H 17 119/74 97 09/21/18 04:08 116 H 16 98/50 96 09/21/18 04:06 124 H 16 107/57 97 09/21/18 03:17 125 H 18 117/65 96 09/21/18 02:06 99.5 F 93 18 120/70 96 09/21/18 00:35 94 20 124/56 94 L 09/20/18 23:18 99.1 F 96 20 111/60 93 L 09/20/18 21:05 98.4 F 98 24 121/61 99 Intake and Output 09/21/18 09/21/18 09/21/18 06:59 14:59 22:59 Intake Total 736.880 5309.417 Output Total 120 470 Balance 083.570 4175.417 Intake: IV 250 1850 Magnesium Sulfate-D5w Pmx 200 1 gm In Dextrose/Water 1 100ml.bag @ 100 mls/hr IVPB Q1H VERO Rx#: [id number] Potassium Chloride 10 meq 600 In Water For Injection 1 100ml.bag @ 100 mls/hr IVPB Q1H VERO Rx#: [id number] Sodium Chloride 0.9% 1, 250 1000 000 ml @ 125 mls/hr IV . Q8H VERO Rx#:[id number] cefTRIAXone 1,000 mg In 50 Sodium Chloride 0.9% 50 ml @ 100 mls/hr IVPB Q24HR VERO Rx#:[id number] Intake, IV Titration 12.083 29.417 Amount Diltiazem 50 mg In Sodium 12.083 29.417 Chloride 0.9% 40 ml @ 10 MG/HR 10 mls/hr IV .Q5H VERO Rx#:[id number] Output: Urine 120 470 Other: Voiding Method Indwelling Catheter Indwelling Catheter Indwelling Catheter Weight 89.8 kg 89.8 kg On physical examination, patient appears comfortable in no apparent distress. HEAD: Normocephalic, atraumatic. EYES: No scleral icterus. No conjunctival injection. MOUTH: No lesions, tongue midline. NECK: Trachea midline, no gross abnormalities. CHEST: Clear to auscultation with no wheezing or rhonchi appreciated. HEART: Tachycardic, irregularly irregular. ABDOMEN: Soft, obese. Bowel sounds are positive. No organomegaly. No guarding or rigidity. EXTREMITIES: No pedal edema. SKIN: No rashes, no jaundice. NEUROLOGIC: Arousable but lethargic. Results CBC & Chem 7: 09/21/18 12:20 09/21/18 12:20 Labs: Abnormal Lab Results - Last 24 Hours (Table) 09/20/18 09/20/18 09/20/18 Range/Units 22:47 22:47 22:47 RBC 3.41 L (3.80-5.40) m/uL Hgb 9.7 L (11.4-16.0) gm/dL Hct 29.8 L (34.0-46.0) % MCHC (31.0-37.0) g/dL Lymphocytes # 0.6 L (1.0-4.8) k/uL Potassium (3.5-5.1) mmol/L Chloride 108 H (98-107) mmol/L Carbon Dioxide (22-30) mmol/L BUN 27 H (7-17) mg/dL Creatinine 0.50 L (0.52-1.04) mg/dL Glucose 130 H (74-99) mg/dL POC Glucose (mg/dL) (75-99) mg/dL Calcium 8.0 L (8.4-10.2) mg/dL Troponin I 0.054 H* (0.000-0.034) ng/mL Urine Appearance (Clear) Urine Protein (Negative) Urine Ketones (Negative) Urine Blood (Negative) Urine Nitrite (Negative) Ur Leukocyte Esterase (Negative) Urine RBC (0-5) /hpf Urine WBC (0-5) /hpf Urine WBC Clumps (None) /hpf Urine Bacteria (None) /hpf Urine Mucus (None) /hpf Stool Occult Blood (Negative) 09/21/18 09/21/18 09/21/18 Range/Units 00:34 04:30 05:21 RBC (3.80-5.40) m/uL Hgb (11.4-16.0) gm/dL Hct (34.0-46.0) % MCHC (31.0-37.0) g/dL Lymphocytes # (1.0-4.8) k/uL Potassium (3.5-5.1) mmol/L Chloride (98-107) mmol/L Carbon Dioxide (22-30) mmol/L BUN (7-17) mg/dL Creatinine (0.52-1.04) mg/dL Glucose (74-99) mg/dL POC Glucose (mg/dL) 107 H (75-99) mg/dL Calcium (8.4-10.2) mg/dL Troponin I 0.055 H* (0.000-0.034) ng/mL Urine Appearance (Clear) Urine Protein (Negative) Urine Ketones (Negative) Urine Blood (Negative) Urine Nitrite (Negative) Ur Leukocyte Esterase (Negative) Urine RBC (0-5) /hpf Urine WBC (0-5) /hpf Urine WBC Clumps (None) /hpf Urine Bacteria (None) /hpf Urine Mucus (None) /hpf Stool Occult Blood Positive H (Negative) 09/21/18 09/21/18 09/21/18 Range/Units 05:21 05:21 05:30 RBC 3.01 L (3.80-5.40) m/uL Hgb 8.8 L (11.4-16.0) gm/dL Hct 27.2 L (34.0-46.0) % MCHC (31.0-37.0) g/dL Lymphocytes # (1.0-4.8) k/uL Potassium 3.4 L (3.5-5.1) mmol/L Chloride 111 H (98-107) mmol/L Carbon Dioxide 21 L (22-30) mmol/L BUN 31 H (7-17) mg/dL Creatinine (0.52-1.04) mg/dL Glucose 106 H (74-99) mg/dL POC Glucose (mg/dL) (75-99) mg/dL Calcium 7.9 L (8.4-10.2) mg/dL Troponin I (0.000-0.034) ng/mL Urine Appearance Turbid H (Clear) Urine Protein 1+ H (Negative) Urine Ketones Trace H (Negative) Urine Blood Small H (Negative) Urine Nitrite Positive H (Negative) Ur Leukocyte Esterase Large H (Negative) Urine RBC 6 H (0-5) /hpf Urine WBC >182 H (0-5) /hpf Urine WBC Clumps Many H (None) /hpf Urine Bacteria Moderate H (None) /hpf Urine Mucus Rare H (None) /hpf Stool Occult Blood (Negative) 09/21/18 09/21/18 Range/Units 12:20 12:20 RBC 3.04 L (3.80-5.40) m/uL Hgb 8.5 L (11.4-16.0) gm/dL Hct 27.6 L (34.0-46.0) % MCHC 30.6 L (31.0-37.0) g/dL Lymphocytes # (1.0-4.8) k/uL Potassium (3.5-5.1) mmol/L Chloride (98-107) mmol/L Carbon Dioxide (22-30) mmol/L BUN (7-17) mg/dL Creatinine (0.52-1.04) mg/dL Glucose (74-99) mg/dL POC Glucose (mg/dL) (75-99) mg/dL Calcium (8.4-10.2) mg/dL Troponin I 0.039 H* (0.000-0.034) ng/mL Urine Appearance (Clear) Urine Protein (Negative) Urine Ketones (Negative) Urine Blood (Negative) Urine Nitrite (Negative) Ur Leukocyte Esterase (Negative) Urine RBC (0-5) /hpf Urine WBC (0-5) /hpf Urine WBC Clumps (None) /hpf Urine Bacteria (None) /hpf Urine Mucus (None) /hpf Stool Occult Blood (Negative) Microbiology - Last 24 Hours (Table) 09/21/18 05:30 Urine Culture - Preliminary Urine,Voided Chest x-ray: report reviewed (X-ray of the chest showing minimal pleural reaction and infiltrate increased from prior exam. Atheromatous aorta.) Assessment and Plan (1) Gastrointestinal hemorrhage Narrative/Plan: Patient presenting due to vomiting with reported bright red blood in the emesis. Initially hemoglobin found to be 9.7 trended down to 8.8 and has remained stable at 8.5 today. No further vomiting or hematemesis however the patient has had 2 maroon-colored bowel movements since presentation with the last one early this morning. Current Visit: Yes Status: Acute Code(s): K92.2 - GASTROINTESTINAL HEMORRHAGE, UNSPECIFIED SNOMED Code(s): 38805829 (2) Anemia, blood loss Current Visit: Yes Status: Acute Code(s): D50.0 - IRON DEFICIENCY ANEMIA SECONDARY TO BLOOD LOSS (CHRONIC) SNOMED Code(s): 821995886 (3) Atrial fibrillation with RVR Current Visit: Yes Status: Acute Code(s): I48.91 - UNSPECIFIED ATRIAL FIBRILLATION SNOMED Code(s): 708314156961282 (4) Mild cognitive impairment Current Visit: No Status: Acute Code(s): G31.84 - MILD COGNITIVE IMPAIRMENT , SO STATED SNOMED Code(s): 984259629 Plan: Supportive care Monitor hemoglobin and transfuse as needed Protonix 40 mg IV twice daily Clear liquid diet, nothing by mouth after midnight Plan for EGD tomorrow Avoid NSAID medications Thank you for allowing us to participate in the care of this patient we will continue to follow
[2018-09-21 20:11] LABS: HCT 28.4 % (34.0-46.0); HGB 8.7 gm/dL (11.4-16.0); Hypochromasia Marked; MCH 28.5 pg (25.0-35.0); MCHC 30.6 g/dL (31.0-37.0); MCV 93.2 fL (80.0-100.0); Mean Platelet Volume 7.5; Platelet Count 354 k/uL (150-450); RBC 3.05 m/uL (3.80-5.40); RDW 14.2 % (11.5-15.5); WBC 9.6 k/uL (3.8-10.6)
[2018-09-21] MEDS: PANTOPRAZOLE 40 MG/10 ML VIAL IVP SCH (20:35)
[2018-09-21] MEDS: VERAPAMIL SR 240 MG TABLET.ER PO SCH (21:00)
--- NOTE | 2018-09-21 21:31 | CONS ---
CONSULTATION HISTORY: This is a elderly 88-year-old lady who has been admitted to the ICU with gastrointestinal bleeding and after arrival she was in atrial fibrillation with a rapid ventricular rate and I was asked to see her in this regard. Patient is not a very good historian. Her nephew was here and limited information was available. She apparently has been transferred from [facility] where she presented with some hematemesis/hemoptysis-type picture. However, she did receive some blood transfusion, a total of of nearly 3 units. She is a resident of [facility], transferred from [facility], where she presented with vomiting and bright red blood. She had a hemoglobin of 7.6 at [facility], it was 8.9 on September 18. Because of hematemesis and also some maroon-colored stools, she received at least 1 or 2 units of blood and was transferred here. After arrival, she went into atrial fib with rapid rate and I was asked to see her in this regard. It is unclear if she has previous history of atrial fib. She has hypertension, hyperlipidemia, and osteoarthritis. No documented evidence of any prior myocardial infarction. At the time of my evaluation, she is exhausted, does not communicate well. Denies any chest pain. PAST MEDICAL HISTORY: Hypertension, hyperlipidemia, osteoarthritis, neuropathy, diverticulosis. She is a resident of [facility]. Not a good historian. MEDICATIONS: 1. Verapamil SR 40 mg daily. 2. Zofran. 3. Melatonin. 4. Meclizine. 5. Imdur 30 mg daily. 6. Aspirin. 7. Dulcolax. ALLERGIES: She has a bunch of allergies including AMLODIPINE, SIMVASTATIN, PENICILLIN, ZETIA. PHYSICAL EXAMINATION: Blood pressure is 108/70, pulse rate is about 90 and regular HEENT: Unremarkable. Fundus was not examined by me. NECK: Supple. There is JVD. There is no carotid bruit. HEART: Exam reveals S1 and S2 with irregular rhythm. Short systolic murmur. LUNGS: Reveal diminished air entry. ABDOMEN: Soft, nontender. EXTREMITIES: Lower extremities reveal diminished pulses. CENTRAL NERVOUS SYSTEM: Limited exam revealed generalized weakness. IMPRESSION: 1. Atrial fib with rapid ventricular rate. 2. GI bleed, probably upper GI, received some blood transfusion. 3. Hypertension. 4. Patient is a resident of [facility] and not much history is available. RECOMMENDATIONS: I am recommending that we resume verapamil SR which she can take orally. I will obtain echocardiogram and continue rate control with IV Cardizem bolus and drip and see how she does. Based on her clinical course, we will make further recommendations. I am recommending an echocardiogram also to be performed at bedside today. I discussed my thoughts in detail with the patient's family. Thank you very much for the consult. DENISE / SANTY: [id number] /
[2018-09-22] MEDS: DILTIAZEM 50 MG in SODIUM CHLORIDE 0.9% 40 ML IV SCH ×4 (02:23→23:19)
[2018-09-22 03:43] LABS: Anion Gap 7 mmol/L; Blood Urea Nitrogen 20 mg/dL (7-17); Calcium 8.3 mg/dL (8.4-10.2); Carbon Dioxide 20 mmol/L (22-30); Chloride 111 mmol/L (98-107); Glucose 101 mg/dL (74-99); Magnesium 1.8 mg/dL (1.6-2.3); Phosphorus 2.6 mg/dL (2.5-4.5); Potassium 3.8 mmol/L (3.5-5.1); Sodium 138 mmol/L (137-145)
[2018-09-22 04:00] LABS: Basophils % (A) 0 %; Eosinophils # (A) 0.3 k/uL (0-0.7); Eosinophils % (A) 4 %; HGB 7.5 gm/dL (11.4-16.0); Hypochromasia Marked; Lymphocytes # (A) 1.3 k/uL (1.0-4.8); Lymphocytes % (A) 16 %; MCHC 31.1 g/dL (31.0-37.0); MCV 93.2 fL (80.0-100.0); Mean Platelet Volume 7.4; Monocytes # (A) 0.5 k/uL (0-1.0); Monocytes % (A) 7 %; Neutrophils # (A) 5.6 k/uL (1.3-7.7); Neutrophils % (A) 70 %; Platelet Count 388 k/uL (150-450); RBC 2.58 m/uL (3.80-5.40); RDW 14.2 % (11.5-15.5)
[2018-09-22] MEDS: POTASSIUM CHLORIDE 10 MEQ in WATER FOR INJECTION 1 100ML.BAG IVPB SCH ×2 (06:46→09:44)
[2018-09-22] MEDS: MAGNESIUM SULFATE-D5W PMX 1 GM in DEXTROSE/WATER 1 100ML.BAG IVPB SCH ×2 (06:47→09:44)
--- NOTE | 2018-09-22 09:30 | P.PN ---
Subjective Progress Note Date: 09/22/18 Principal diagnosis: GI bleed, urinary tract infection, A. fib RVR This is a 88-year-old female patient of Dr. Perkins, who resides in [facility], was transferred here to the emergency department on 09/20/2018 from the [facility], after she had hematemesis and melena. Patient has a history of dementia, hypertension, depression, parkinsonism, CAD, diverticular disease, osteoporosis. The patient is a poor historian, due to underlying dementia. The [facility] patient's hemoglobin was 7.6, which was a drop from a previous abdominal September 18 of a hemoglobin of 8.9.. Patient was transfused with 1 unit of packed red blood cells at the [facility], and received 1 more unit here. She seems to be fairly comfortable, were seen the patient in the intensive care this morning. She is awake and alert, responding verbally, her nephews at the bedside and could not provide much information on her medical history. Patient was found to be in A. fib RVR with a rate of 130 BPM, is appears to be new onset A. fib for this patient. Chest x-ray shows shows tiny pleural effusions. Globin after transfusion with 2 units of pack red blood cells went up to 9.7, and this morning is 8.8. Troponins were related to 0.054, and 0.055. Urinalysis turbid urine with large leuks, white cells in clumps and red blood cells and moderate bacteria. Occult stool was positive. Patient has not had any more imaging to emesis or melena at this hospital. Currently she is on maintenance IV fluids with 0.9 normal saline at a rate of 125 an hour, and Cardizem drip at 10 mg per hour for rate control, and she remains in A. fib with a rate of 113 BPM. Lung sounds are clear, abdomen is soft and nontender. Is unknown whether the patient had previous episodes of GI bleeding, she is on baby aspirin a day at home, no other blood thinners. On 09/22/2018 patient seen again in follow-up in the intensive care unit, she is lethargic, does arouse to verbal stimuli, slow to respond. Does not appear to be in any acute distress, no shortness of breath, no abdominal pain. Patient had converted to sinus rhythm, currently with controlled rate, still remains a Cardizem drip at 5 mg per hour, maintenance IV fluid is 0.9 normal saline at a rate of 125 ML per hour, patient is status post transfusion with 2 units of packed red blood cells, and this morning's hemoglobin is 7.5. Is hemodynamically stable. Patient had 2 small tarry bowel movements. No further hematemesis. Lung sounds are clear, she is nonoliguric. She remains on PPI therapy, nothing by mouth for EGD this afternoon. Objective - Vital Signs Vital signs: Vital Signs Temp 98.8 F 09/22/18 04:00 Pulse 78 09/22/18 07:00 Resp 23 09/22/18 07:00 BP 130/55 09/22/18 07:00 Pulse Ox 93 L 09/22/18 08:25 Intake & Output 09/21/18 09/22/18 09/22/18 18:59 06:59 18:59 Intake Total 2554.417 1751.333 125 Output Total 805 775 65 Balance 1749.417 976.333 60 Weight 89.8 kg 73.9 kg Intake: IV 2475 1375 125 Magnesium Sulfate-D5w Pmx 200 1 gm In Dextrose/Water 1 100ml.bag @ 100 mls/hr IVPB Q1H VERO Rx#: [id number] Potassium Chloride 10 meq 600 In Water For Injection 1 100ml.bag @ 100 mls/hr IVPB Q1H VERO Rx#: [id number] Sodium Chloride 0.9% 1, 1625 1375 125 000 ml @ 125 mls/hr IV . Q8H VERO Rx#:[id number] cefTRIAXone 1,000 mg In 50 Sodium Chloride 0.9% 50 ml @ 100 mls/hr IVPB Q24HR VERO Rx#:[id number] Intake, IV Titration 79.417 126.333 Amount Diltiazem 50 mg In Sodium 79.417 126.333 Chloride 0.9% 40 ml @ 10 MG/HR 10 mls/hr IV .Q5H VERO Rx#:[id number] Oral 250 Output: Urine 805 775 65 Other: Voiding Method Indwelling Catheter Indwelling Catheter - Exam GENERAL EXAM: Alert, 88-year-old white female, somewhat of a flat affect, comfortable in no apparent distress. Slow to respond HEAD: Normocephalic/atraumatic. EYES: Normal reaction of pupils, equal size. Conjunctiva pink, sclera white. NOSE: Clear with pink turbinates. THROAT: No erythema or exudates. NECK: No masses, no JVD, no thyroid enlargement, no adenopathy. CHEST: No chest wall deformity. Symmetrical expansion. LUNGS: Equal air entry with no crackles, wheeze, rhonchi or dullness. CVS: Irregular rate and rhythm, normal S1 and S2, no gallops, no murmurs, no rubs ABDOMEN: Soft, nontender. No hepatosplenomegaly, normal bowel sounds, no guarding or rigidity. EXTREMITIES: No clubbing, no edema, no cyanosis, 2+ pulses and upper and lower extremities. MUSCULOSKELETAL: Muscle strength and tone normal. SPINE: No scoliosis or deformity SKIN: No rashes CENTRAL NERVOUS SYSTEM: Alert and oriented -3. No focal deficits, tone is normal in all 4 extremities. PSYCHIATRIC: Alert and oriented -3. Appropriate affect. Intact judgment and insight. - Labs CBC & Chem 7: 09/22/18 03:09 09/22/18 03:09 Labs: Abnormal Lab Results - Last 24 Hours (Table) 09/21/18 09/21/18 09/21/18 Range/Units 05:30 12:20 12:20 RBC 3.04 L (3.80-5.40) m/uL Hgb 8.5 L (11.4-16.0) gm/dL Hct 27.6 L (34.0-46.0) % MCHC 30.6 L (31.0-37.0) g/dL Chloride (98-107) mmol/L Carbon Dioxide (22-30) mmol/L BUN (7-17) mg/dL Creatinine (0.52-1.04) mg/dL Glucose (74-99) mg/dL Calcium (8.4-10.2) mg/dL Troponin I 0.039 H* (0.000-0.034) ng/mL Urine WBC >182 H (0-5) /hpf 09/21/18 09/22/18 09/22/18 Range/Units 19:41 03:09 03:09 RBC 3.05 L 2.58 L (3.80-5.40) m/uL Hgb 8.7 L 7.5 L (11.4-16.0) gm/dL Hct 28.4 L 24.0 L (34.0-46.0) % MCHC 30.6 L (31.0-37.0) g/dL Chloride 111 H (98-107) mmol/L Carbon Dioxide 20 L (22-30) mmol/L BUN 20 H (7-17) mg/dL Creatinine 0.42 L (0.52-1.04) mg/dL Glucose 101 H (74-99) mg/dL Calcium 8.3 L (8.4-10.2) mg/dL Troponin I (0.000-0.034) ng/mL Urine WBC (0-5) /hpf Microbiology - Last 24 Hours (Table) 09/21/18 05:30 Urine Culture - Preliminary Urine,Voided Assessment and Plan Plan: Assessment: #1. Acute blood loss anemia secondary to acute upper GI bleeding #2. History of diverticular disease #3. New onset A. fib RVR #4. Acute urinary tract infection #5. Cognitive deficit related to underlying dementia #6. Parkinsonism and gait dysfunction #7. Essential hypertension #8. History of depression #9. Atherosclerotic heart disease #10. Osteoporosis Plan: Maintain nothing by mouth status, patient is scheduled for EGD this afternoon, she is hemodynamically stable, currently in sinus rhythm with a controlled rate. Continue IV fluids, IV antibiotics, monitor hemodynamics, urine output, continue PPI therapy, we'll continue to follow I performed a history & physical examination of the patient and discussed their management with my nurse practitioner, Luz Olivarez. I reviewed the nurse practitioner's note and agree with the documented findings and plan of care. Lung sounds are clear. The findings and the impression was discussed with the patient. I attest to the documentation by the nurse practitioner. Time with Patient: Greater than 30
--- NOTE | 2018-09-22 09:45 | P.PN ---
Subjective Progress Note Date: 09/22/18 This is an 88-year-old female patient of Dr. Perkins. Patient presented with complaints of upper GI bleed. Patient currently resides at [facility]. Patient apparently had an episode of vomiting with some bright red blood. Patient was then taken to The hospital and transferred to [facility] for further evaluation. Patient did receive 2 units PRBCs at [facility]. Patient has known past medical history of hyperlipidemia, hypertension, osteoarthritis, Osteoporosis, diverticulosis, and depression. EKG completed also showing patient in new-onset atrial fibrillation with rapid ventricular response with heart rate of 130. Patient started on Cardizem drip. Troponin levels 0.054 0.055. Chest x-ray completed repleted showing minimal pleural reaction and infiltrate at the lateral left lung base is increased compared to old exam. No heart failure. A tremendous aortic. There is clearing of right upper lobe pneumonia compared to old exam. Urinary analysis completed showing large amounts of leukocyte esterase. Patient started on Rocephin. Per nursing staff patient also having maroon stools. Stool occult blood was positive. Dr. Brunson has been consulted for GI services. Dr. Sweeney following for critical management and cardiology services consulted for new onset atrial fibrillation. This time patient appears comfortable resting in bed. Patient denies any chest pain or shortness of breath. On 09/22/2018 patient is currently resting in bed. Per GI services, EGD to be completed today. Hemoglobin currently 7.5. Patient remains on Cardizem drip for A. fib RVR. Patient denies chest pain or shortness breath. Patient denies nausea vomiting or diarrhea. Patient denies any urinary burning or frequency Objective - Vital Signs Vital signs: Vital Signs Temp 98.8 F 09/22/18 04:00 Pulse 78 09/22/18 07:00 Resp 23 09/22/18 07:00 BP 130/55 09/22/18 07:00 Pulse Ox 93 L 09/22/18 08:25 Intake & Output 09/21/18 09/22/18 09/22/18 18:59 06:59 18:59 Intake Total 2554.417 1751.333 125 Output Total 805 775 65 Balance 1749.417 976.333 60 Weight 89.8 kg 73.9 kg Intake: IV 2475 1375 125 Magnesium Sulfate-D5w Pmx 200 1 gm In Dextrose/Water 1 100ml.bag @ 100 mls/hr IVPB Q1H VERO Rx#: [id number] Potassium Chloride 10 meq 600 In Water For Injection 1 100ml.bag @ 100 mls/hr IVPB Q1H VERO Rx#: [id number] Sodium Chloride 0.9% 1, 1625 1375 125 000 ml @ 125 mls/hr IV . Q8H VERO Rx#:[id number] cefTRIAXone 1,000 mg In 50 Sodium Chloride 0.9% 50 ml @ 100 mls/hr IVPB Q24HR VERO Rx#:[id number] Intake, IV Titration 79.417 126.333 Amount Diltiazem 50 mg In Sodium 79.417 126.333 Chloride 0.9% 40 ml @ 10 MG/HR 10 mls/hr IV .Q5H VERO Rx#:[id number] Oral 250 Output: Urine 805 775 65 Other: Voiding Method Indwelling Catheter Indwelling Catheter - Exam Head normocephalic Neck supple Lungs clear to auscultation bilaterally no wheezing or crackles Heart regular rate and rhythm S1-S2, no rub or gallop Abdomen is soft nontender nondistended positive bowel sounds no hepatosplenomegaly Extremities no edema Neuro alert and orientated to 3 - Labs CBC & Chem 7: 09/22/18 03:09 09/22/18 03:09 Labs: Abnormal Lab Results - Last 24 Hours (Table) 09/21/18 09/21/18 09/21/18 Range/Units 12:20 12:20 19:41 RBC 3.04 L 3.05 L (3.80-5.40) m/uL Hgb 8.5 L 8.7 L (11.4-16.0) gm/dL Hct 27.6 L 28.4 L (34.0-46.0) % MCHC 30.6 L 30.6 L (31.0-37.0) g/dL Chloride (98-107) mmol/L Carbon Dioxide (22-30) mmol/L BUN (7-17) mg/dL Creatinine (0.52-1.04) mg/dL Glucose (74-99) mg/dL Calcium (8.4-10.2) mg/dL Troponin I 0.039 H* (0.000-0.034) ng/mL 09/22/18 09/22/18 Range/Units 03:09 03:09 RBC 2.58 L (3.80-5.40) m/uL Hgb 7.5 L (11.4-16.0) gm/dL Hct 24.0 L (34.0-46.0) % MCHC (31.0-37.0) g/dL Chloride 111 H (98-107) mmol/L Carbon Dioxide 20 L (22-30) mmol/L BUN 20 H (7-17) mg/dL Creatinine 0.42 L (0.52-1.04) mg/dL Glucose 101 H (74-99) mg/dL Calcium 8.3 L (8.4-10.2) mg/dL Troponin I (0.000-0.034) ng/mL Microbiology - Last 24 Hours (Table) 09/21/18 05:30 Urine Culture - Preliminary Urine,Voided Assessment and Plan Assessment: 1. Acute blood loss anemia secondary to GI bleed. Patient received 2 units PRBCs. Current hemoglobin 8.8. Dr. Brunson has been consulted for GI services. Stool occult blood positive. EGD today per GI services 2. New onset atrial fibrillation with rapid ventricular response. Heart rate in the 130s. Cardiology services have been consulted. 2-D echo completed showing an EF of 60-65%. 3. Urinary tract infection. Patient started on Rocephin. Urine culture ordered 4. Elevated cardiac enzymes. Troponin level 0.054 and 0.055. Cardiology services have been consulted 5. History of diverticular disease 6. Underlining dementia 7. History of essential hypertension 8. History of parkinsonism 9. History of hyperlipidemia 10. History of osteoarthritis DVT prophylaxis SCDs. GI prophylaxis Protonix I performed an examination of the patient and discussed their management with the Nurse Practitioner. I have reviewed the Nurse Practitioner's notes and agree with the documented findings and plan of care
[2018-09-22] MEDS: ISOSORBIDE MONONITRATE ER 30 MG TAB.ER.24H PO SCH (09:47)
[2018-09-22] MEDS: INDAPAMIDE 2.5 MG TAB PO SCH (09:47)
[2018-09-22] MEDS: MECLIZINE 25 MG TAB PO SCH (09:47)
[2018-09-22] MEDS: LORATADINE 10 MG TAB PO SCH (09:47)
[2018-09-22] MEDS: GABAPENTIN 300 MG CAP PO SCH ×2 (09:47→16:38)
[2018-09-22] MEDS: FLUTICASONE 50MCG/SPRAY NASAL 16GM EA NOSTRIL SCH (09:47)
[2018-09-22] MEDS: ESCITALOPRAM 20 MG TAB PO SCH (09:47)
[2018-09-22] MEDS: SENNOSIDES-DOCUSATE SODIUM 1 EACH TAB PO SCH ×2 (09:48→16:38)
[2018-09-22] MEDS: PANTOPRAZOLE 40 MG/10 ML VIAL IVP SCH ×2 (09:48→22:59)
[2018-09-22] MEDS: SODIUM CHLORIDE 0.9% 1,000 ML IV SCH ×2 (09:48→16:37)
[2018-09-22] MEDS: POLYETHYLENE GLYCOL 3350 17 GM POWD.PACK PO SCH (09:48)
[2018-09-22] MEDS ORDERED: ACETAMINOPHEN TAB 325 MG TAB PO PRN (09:52)
--- NOTE | 2018-09-22 10:08 | PN ---
PROGRESS NOTE This lady came in with a paroxysmal AFib and GI bleed. She is going for endoscopy today. She has converted to sinus rhythm last night, maintaining sinus rhythm, hemodynamically stable, making decent urine. Hemoglobin is 7.5. The patient is not in any distress, but she is not a good historian. I am recommending that we continue the Cardizem at a lower dose of 5 mg until the EGD is performed. Vital signs are stable. S1-S2 heard normally, short systolic murmur noted. Lungs are clear. Abdomen and lower extremity exam unchanged. Plan is to continue current medical regimen and reduce the dose of Cardizem and see the results of EGD. Patient is not a good candidate to anticoagulate given the circumstances of GI bleed at this time. Fortunately, she is in sinus rhythm. MMODL / IJN: [id number] /
[2018-09-22 11:47] LABS: Basophils % (A) 0 %; Eosinophils # (A) 0.4 k/uL (0-0.7); Eosinophils % (A) 5 %; HCT 23.4 % (34.0-46.0); HGB 7.3 gm/dL (11.4-16.0); Hypochromasia Moderate; Lymphocytes # (A) 1.1 k/uL (1.0-4.8); Lymphocytes % (A) 16 %; MCH 28.3 pg (25.0-35.0); MCHC 31.4 g/dL (31.0-37.0); MCV 90.2 fL (80.0-100.0); Mean Platelet Volume 7.5; Monocytes # (A) 0.4 k/uL (0-1.0); Monocytes % (A) 6 %; Neutrophils # (A) 4.8 k/uL (1.3-7.7); Neutrophils % (A) 70 %; Platelet Count 381 k/uL (150-450); RBC 2.59 m/uL (3.80-5.40); RDW 13.9 % (11.5-15.5); WBC 6.9 k/uL (3.8-10.6)
--- NOTE | 2018-09-22 14:18 | CT ---
EXAMINATION TYPE: CT brain wo con DATE OF EXAM: 09/22/2018 COMPARISON: 02/28/2017 HISTORY: Left sided weakness Automated exposure control for dose reduction was used. FINDINGS: Moderate generalized degenerative change. Periventricular low attenuation is noted. Ventricular dilat ion is a greater central component. No midline shift or mass effect. Calvarium intact. No acute hemor rhage or mass effect. IMPRESSION: DEGENERATIVE AND NONSPECIFIC WHITE MATTER CHANGES MOST TYPICAL OF REMOTE ISCHEMIA. GREATER CENTRAL CO MPONENT SUGGESTIVE POSSIBILITY OF NORMAL PRESSURE HYDROCEPHALUS. IF THERE IS CONCERN FOR ACUTE ISCHEM IA CORRELATE WITH MRI CLINICALLY WARRANTED..
[2018-09-22 14:44] LABS: Glucose,Whole Blood 113 mg/dL (75-99)
--- NOTE | 2018-09-22 15:35 | CT ---
EXAMINATION TYPE: CODE STROKE: CTA head neck DATE OF EXAM: 09/22/2018 COMPARISON: CT head same day HISTORY: 88-year-old female with left sided weakness TECHNIQUE: Contiguous axial scanning of the head and neck performed with IV Contrast, patient injecte d with 65 mL of Isovue 370. Delayed coronal/sagittal MIP reconstructions performed. 3-D reconstructio ns generated on a dedicated workstation. CT DLP: 294.5 mGycm Automated exposure control for dose reduction was used. FINDINGS: Head: Left vertebral artery is dominant. Posterior circulation is patent. There is hypoplastic P1 segment r ight posterior cerebral artery with persistent origin of the FACING BASTER JUMPBASTING. Mild atherosclerotic calcifications in the bilateral carotid siphons. Bilateral internal carotid eli giovana are patent. No significant stenosis or large vessel arterial occlusion is identified. No aneurys mal change seen. Acute on chronic right sphenoid sinus disease and leftward nasal septal deviation. NECK: Small bilateral pleural effusions. Interstitial changes and diffuse respiratory motion artifacts visu alized upper lungs. Possible CHF. There is bovine configuration to the aortic arch with patent arch vessels. Motion artifacts at the th oracic inlet limits assessment. The left vertebral artery is dominant. Both vessels appear patent throughout the course. Limited assessment of the proximal right common carotid artery due to motion. Mild atherosclerotic calcifications at the right carotid bifurcation with mild, less than 25% narrowi ng at the carotid bulb. Minimal atherosclerotic changes at the left bifurcation without significant stenosis. IMPRESSION: 1. HEAD: DOMINANT LEFT VERTEBRAL ARTERY AND PERSISTENT ORIGIN RIGHT FACING BASTER JUMPBASTING. MILD ATHEROSCLEROTIC C HANGES IN THE BILATERAL CAROTID SIPHONS. NO LARGE VESSEL INTRACRANIAL ARTERIAL OCCLUSION OR SIGNIFICA NT STENOSIS SEEN. 2. NECK: MILD ATHEROSCLEROTIC CHANGES AT BOTH BIFURCATIONS WITHOUT HEMODYNAMICALLY SIGNIFICANT STENOS IS APPRECIATED IN EITHER INTERNAL CAROTID ARTERY. 3. CORRELATE FOR ACUTE ON CHRONIC RIGHT SPHENOID SINUS DISEASE.
[2018-09-22 19:59] LABS: Basophils % (A) 0 %; Eosinophils # (A) 0.1 k/uL (0-0.7); Eosinophils % (A) 1 %; HCT 24.8 % (34.0-46.0); HGB 7.7 gm/dL (11.4-16.0); Hypochromasia Marked; Lymphocytes # (A) 0.7 k/uL (1.0-4.8); Lymphocytes % (A) 8 %; MCH 28.8 pg (25.0-35.0); MCHC 31.1 g/dL (31.0-37.0); MCV 92.5 fL (80.0-100.0); Mean Platelet Volume 7.3; Monocytes # (A) 0.4 k/uL (0-1.0); Monocytes % (A) 5 %; Neutrophils # (A) 7.7 k/uL (1.3-7.7); Neutrophils % (A) 85 %; Platelet Count 450 k/uL (150-450); RBC 2.68 m/uL (3.80-5.40); RDW 14.1 % (11.5-15.5); WBC 9.1 k/uL (3.8-10.6)
[2018-09-22] MEDS: VERAPAMIL SR 240 MG TABLET.ER PO SCH (20:38)
[2018-09-22] MEDS ORDERED: DILTIAZEM DRIP BOLUS FROM BAG 1 MG SOLN IV ONE (20:45)
--- NOTE | 2018-09-22 20:46 | MR ---
EXAMINATION TYPE: MR brain wo con DATE OF EXAM: 09/22/2018 COMPARISON: CT examinations 09/22/2018 HISTORY: Left-sided weakness TECHNIQUE: Multiplanar, multisequence images of the were acquired. Diffusion weighted imaging was per formed. FINDINGS: There is a mildly hyperintense zone of restricted diffusion in the right frontal lobe, late ral to the right frontal horn, consistent with nonhemorrhagic acute infarction in the vascular territ ory of the right MCA. This zone measures approximately 4 cm mean diameter. The ventricles are again seen to be enlarged, relative to the sulci and the basal cisterns; this is a nonspecific finding which can correlate with the clinical diagnosis of normal pressure hydrocephalus . No other candidates for acute/subacute findings. IMPRESSION: Right MCA territory nonhemorrhagic acute infarction.
[2018-09-23 05:29] LABS: Basophils % (A) 0 %; Eosinophils # (A) 0.1 k/uL (0-0.7); Eosinophils % (A) 1 %; HCT 22.9 % (34.0-46.0); HGB 7.2 gm/dL (11.4-16.0); Hypochromasia Moderate; Lymphocytes % (A) 11 %; MCH 28.2 pg (25.0-35.0); MCHC 31.4 g/dL (31.0-37.0); MCV 89.9 fL (80.0-100.0); Mean Platelet Volume 7.4; Monocytes # (A) 0.5 k/uL (0-1.0); Monocytes % (A) 6 %; Neutrophils # (A) 7.1 k/uL (1.3-7.7); Neutrophils % (A) 80 %; Platelet Count 507 k/uL (150-450); RBC 2.55 m/uL (3.80-5.40); RDW 14.2 % (11.5-15.5); WBC 8.8 k/uL (3.8-10.6)
[2018-09-23 05:40] LABS: Anion Gap 10 mmol/L; Blood Urea Nitrogen 12 mg/dL (7-17); Calcium 8.6 mg/dL (8.4-10.2); Carbon Dioxide 18 mmol/L (22-30); Chloride 112 mmol/L (98-107); Cholesterol 147 mg/dL (<200); Glucose 109 mg/dL (74-99); HDL Cholesterol 32 mg/dL (40-60); LDL Cholesterol,Calculated 92 mg/dL (0-99); Magnesium 1.8 mg/dL (1.6-2.3); Potassium 3.3 mmol/L (3.5-5.1); Sodium 140 mmol/L (137-145); Triglycerides 115 mg/dL (<150)
[2018-09-23] MEDS ORDERED: Potassium Replacement Protocol 1 EACH MISC MISCELLANE PRN (05:50)
[2018-09-23] MEDS: SODIUM CHLORIDE 0.9% 1,000 ML IV SCH ×2 (06:16→11:25)
[2018-09-23] MEDS: DILTIAZEM 50 MG in SODIUM CHLORIDE 0.9% 40 ML IV SCH ×4 (06:17→23:17)
[2018-09-23] MEDS: POTASSIUM CHLORIDE 10 MEQ in WATER FOR INJECTION 1 100ML.BAG IVPB SCH ×4 (06:17→12:35)
--- NOTE | 2018-09-23 07:09 | CONS ---
CONSULTATION DATE OF CONSULTATION: 09/22/2018 CHIEF COMPLAINT: Stroke. HISTORY OF PRESENT ILLNESS: Mrs. Newman is an 88-year-old, female, who is being evaluated by the neurology service per the request of Dr. Borrero for a stroke. The patient was initially taken to [facility] after she had an episode of vomiting with some bright red blood. She was diagnosed with a GI bleed and severe anemia with a hemoglobin of 7.6. She was transfused with packed red blood cells and transferred to [facility] for further workup and management. On arrival, the patient had a run of atrial fibrillation and then had a sudden onset of left hemiplegia and aphasia. A stat CT scan of the brain was done which showed significant small-vessel changes and moderate ventriculomegaly. Anti-platelet therapy and anticoagulation therapy was not started due to her GI bleed. The patient was also not a tPA candidate due to the same reason. At the time of my evaluation, she is lying in her intensive care unit bed and has reversed back to normal sinus rhythm. She continues to have expressive aphasia and left hemiplegia. The patient has not been swallowing as well. Her CT angiogram of the brain and neck showed no evidence of any thrombus or significant stenosis. Her CBC at this time showed ( ) has been consulted. An MRI of the brain was just completed. The radiology report is still pending but I did review the images which show evidence of an acute ischemic stroke involving the right middle cerebral artery distribution. PAST MEDICAL HISTORY: Hypertension, dyslipidemia, arthritis, chronic lumbago, diverticulosis, neuropathy, osteoporosis, depression. SOCIAL HISTORY: There is no history of any tobacco, alcohol or drug use. FAMILY HISTORY: Positive for myocardial infarction and chronic obstructive pulmonary disease. HOME MEDICATIONS: Reviewed in the chart. ALLERGIES: Multiple allergies reviewed in the chart. REVIEW OF SYSTEMS: Unable to obtain due to aphasia. PHYSICAL EXAM: Vital signs show a temperature of 98.3, pulse 89, respiration 19, blood pressure 124/58. GENERAL APPEARANCE: The patient is a mildly obese, elderly female who has an obvious left hemiplegia. HEENT: Normocephalic, atraumatic. Left facial drooping is seen. Left gaze palsy is present. NECK: Supple with no masses felt. CARDIOVASCULAR: Regular rate and rhythm. ABDOMEN: Nontender, nondistended. Extremities showed no edema or clubbing. NEUROLOGICAL EXAM: The patient is awake and follows simple commands. She does move her right lower and right upper extremity to command. Strength is 0/5 on the left side. Sensory exam appears to be diminished on the left compared to the right. Plantar reflex showed Babinski on the left side. Language testing showed significant expressive aphasia. Comprehension is intact. Cranial nerve testing showed left gaze palsy and left facial weakness. IMPRESSION: 1. Acute ischemic stroke, right middle cerebral artery distribution. 2. Left hemiplegia. 3. Expressive aphasia. 4. Dysphagia. 5. Paroxysmal atrial fibrillation. 6. Acute gastrointestinal bleed. 7. Anemia. RECOMMENDATION: The patient does have evidence of an acute ischemic infarct involving the right middle cerebral artery distribution, which is causing her left hemiplegia. The patient appears to have right hemisphere dominance as she also has expressive aphasia. She was not a candidate for tPA due to her acute GI bleed. Gastroenterology is following. Her stroke is likely embolic in etiology given her paroxysmal atrial fibrillation. She is not a candidate for any anti-platelet therapy or anticoagulation therapy at this time due to her GI bleed. The patient does need to be on this therapy once cleared from Gastroenterology. I will order a fasting lipid panel, and serum homocystine level. Physical therapy and Speech Therapy will be consulted. Continue neuro checks. I will continue to follow with you. Further recommendations to follow. Thank you for allowing me to participate in the care of your patient. If you have any questions, please feel free to contact me. DENISE / SANTY: [id number] /
[2018-09-23] MEDS: FLUTICASONE 50MCG/SPRAY NASAL 16GM EA NOSTRIL SCH (09:00)
--- NOTE | 2018-09-23 09:03 | P.PN ---
Subjective Progress Note Date: 09/23/18 Principal diagnosis: Acute GI bleed 88-year-old female admitted with acute GI bleed hematemesis melena A. fib RVR. Subsequently suffered an acute ischemic CVA yesterday. Endoscopy postponed. Presently unresponsive. Nursing staff reports 2 melanotic bowel movements last night. No episodes of hypotension or hematemesis. Hemoglobin 7.2 previously 7.9. BUN improved to 12. Afebrile. Objective - Vital Signs Vital signs: Vital Signs Temp 99.3 F 09/23/18 04:00 Pulse 113 H 09/23/18 07:00 Resp 24 09/23/18 07:00 BP 154/73 09/23/18 07:00 Pulse Ox 98 09/23/18 07:00 Intake & Output 09/22/18 09/23/18 09/23/18 18:59 06:59 18:59 Intake Total 1925 1333.667 225 Output Total 1105 1575 75 Balance 820 -241.333 150 Weight 73.5 kg Intake: IV 1875 1250 225 Magnesium Sulfate-D5w Pmx 100 1 gm In Dextrose/Water 1 100ml.bag @ 100 mls/hr IVPB Q1H VERO Rx#: [id number] Potassium Chloride 10 meq 100 100 In Water For Injection 1 100ml.bag @ 100 mls/hr IVPB Q1H VERO Rx#: [id number] Sodium Chloride 0.9% 1, 1625 1250 125 000 ml @ 125 mls/hr IV . Q8H VERO Rx#:[id number] cefTRIAXone 1,000 mg In 50 Sodium Chloride 0.9% 50 ml @ 100 mls/hr IVPB Q24HR VERO Rx#:[id number] Intake, IV Titration 50 83.667 Amount Diltiazem 50 mg In Sodium 50 83.667 Chloride 0.9% 40 ml @ 10 MG/HR 10 mls/hr IV .Q5H VERO Rx#:[id number] Output: Urine 1105 1575 75 Other: Voiding Method Indwelling Catheter Indwelling Catheter - Exam General appearance: The patient is unresponsive. HET: Head is normocephalic and atraumatic. Pupils are equal and reactive. Oropharynx is clear without lesions. Neck: Supple without lymphadenopathy. Trachea midline. Heart: S1 S2. Lungs: No crackles or wheezes are heard. Abdomen: Soft, nontender, nondistended with bowel sounds. No peritoneal signs. No palpable organomegaly or masses. Extremities: Normal skin color and turgor. No cyanosis, rash, ulceration, clubbing, or edema. Radial and pedal pulses are 2/4 bilaterally. Neurological: Unresponsive does not follow commands. - Labs CBC & Chem 7: 09/23/18 05:02 09/23/18 05:02 Labs: Abnormal Lab Results - Last 24 Hours (Table) 09/22/18 09/22/18 09/22/18 Range/Units 11:06 14:32 19:30 RBC 2.59 L 2.68 L (3.80-5.40) m/uL Hgb 7.3 L 7.7 L (11.4-16.0) gm/dL Hct 23.4 L 24.8 L (34.0-46.0) % Plt Count (150-450) k/uL Lymphocytes # 0.7 L (1.0-4.8) k/uL Potassium (3.5-5.1) mmol/L Chloride (98-107) mmol/L Carbon Dioxide (22-30) mmol/L Creatinine (0.52-1.04) mg/dL Glucose (74-99) mg/dL POC Glucose (mg/dL) 113 H (75-99) mg/dL HDL Cholesterol (40-60) mg/dL 09/23/18 09/23/18 Range/Units 05:02 05:02 RBC 2.55 L (3.80-5.40) m/uL Hgb 7.2 L (11.4-16.0) gm/dL Hct 22.9 L (34.0-46.0) % Plt Count 507 H (150-450) k/uL Lymphocytes # (1.0-4.8) k/uL Potassium 3.3 L (3.5-5.1) mmol/L Chloride 112 H (98-107) mmol/L Carbon Dioxide 18 L (22-30) mmol/L Creatinine 0.41 L (0.52-1.04) mg/dL Glucose 109 H (74-99) mg/dL POC Glucose (mg/dL) (75-99) mg/dL HDL Cholesterol 32 L (40-60) mg/dL Microbiology - Last 24 Hours (Table) 09/21/18 05:30 Urine Culture - Preliminary Urine,Voided Gram Neg Bacilli Assessment and Plan (1) Gastrointestinal hemorrhage Current Visit: Yes Status: Acute Code(s): K92.2 - GASTROINTESTINAL HEMORRHAGE, UNSPECIFIED SNOMED Code(s): 64044949 (2) Acute CVA (cerebrovascular accident) Current Visit: Yes Status: Acute Code(s): I63.9 - CEREBRAL INFARCTION, UNSPECIFIED SNOMED Code(s): 604209456 (3) Anemia, blood loss Current Visit: Yes Status: Acute Code(s): D50.0 - IRON DEFICIENCY ANEMIA SECONDARY TO BLOOD LOSS (CHRONIC) SNOMED Code(s): 092149012 (4) Atrial fibrillation with RVR Current Visit: Yes Status: Acute Code(s): I48.91 - UNSPECIFIED ATRIAL FIBRILLATION SNOMED Code(s): 331762716639084 Plan: 1. Hemoglobin 7.2 Will recheck hemoglobin at noon. BUN improving. Continue with Protonix twice daily. Considering the nature of an acute ischemic stroke endoscopy is not planned today. Patient is a no code status. overall condition is guarded. we'll continue to follow. Assessment and plan a care discussed with Dr. Menard
[2018-09-23] MEDS: PANTOPRAZOLE 40 MG/10 ML VIAL IVP SCH ×2 (09:05→23:18)
[2018-09-23] MEDS: MAGNESIUM SULFATE-D5W PMX 1 GM in DEXTROSE/WATER 1 100ML.BAG IVPB SCH ×2 (09:09→10:30)
[2018-09-23] MEDS: ISOSORBIDE MONONITRATE ER 30 MG TAB.ER.24H PO SCH (10:51)
[2018-09-23] MEDS: ESCITALOPRAM 20 MG TAB PO SCH (10:51)
[2018-09-23] MEDS: MECLIZINE 25 MG TAB PO SCH (10:51)
[2018-09-23] MEDS: INDAPAMIDE 2.5 MG TAB PO SCH (10:51)
[2018-09-23] MEDS: GABAPENTIN 300 MG CAP PO SCH ×2 (10:51→17:23)
[2018-09-23] MEDS: POLYETHYLENE GLYCOL 3350 17 GM POWD.PACK PO SCH (10:51)
[2018-09-23] MEDS: LORATADINE 10 MG TAB PO SCH (10:51)
[2018-09-23] MEDS: SENNOSIDES-DOCUSATE SODIUM 1 EACH TAB PO SCH ×2 (10:52→17:23)
--- NOTE | 2018-09-23 11:13 | P.PN ---
Subjective Progress Note Date: 09/23/18 This is an 88-year-old female patient of Dr. Perkins. Patient presented with complaints of upper GI bleed. Patient currently resides at [facility]. Patient apparently had an episode of vomiting with some bright red blood. Patient was then taken to The hospital and transferred to [facility] for further evaluation. Patient did receive 2 units PRBCs at [facility]. Patient has known past medical history of hyperlipidemia, hypertension, osteoarthritis, Osteoporosis, diverticulosis, and depression. EKG completed also showing patient in new-onset atrial fibrillation with rapid ventricular response with heart rate of 130. Patient started on Cardizem drip. Troponin levels 0.054 0.055. Chest x-ray completed repleted showing minimal pleural reaction and infiltrate at the lateral left lung base is increased compared to old exam. No heart failure. A tremendous aortic. There is clearing of right upper lobe pneumonia compared to old exam. Urinary analysis completed showing large amounts of leukocyte esterase. Patient started on Rocephin. Per nursing staff patient also having maroon stools. Stool occult blood was positive. Dr. Brunson has been consulted for GI services. Dr. Sweeney following for critical management and cardiology services consulted for new onset atrial fibrillation. This time patient appears comfortable resting in bed. Patient denies any chest pain or shortness of breath. On 09/22/2018 patient is currently resting in bed. Per GI services, EGD to be completed today. Hemoglobin currently 7.5. Patient remains on Cardizem drip for A. fib RVR. Patient denies chest pain or shortness breath. Patient denies nausea vomiting or diarrhea. Patient denies any urinary burning or frequency On 09/23/2018 patient is currently resting in bed in the intensive care unit. Code stroke was called yesterday 09/22/2018 due to mental status changes and left facial droop. Does appear patient's has suffered an acute ischemic stroke per neurology. Patient remains in A. fib RVR. Patient also having maroon- colored stools throughout night. Hemoglobin 7.2. EGD currently on hold due to altered mental status. Patient maintained Cardizem drip for A. fib RVR. Repeat hemoglobin will be checked today at noon per GI services. Patient currently not following any commands. Left-sided weakness noted. Objective - Vital Signs Vital signs: Vital Signs Temp 99.3 F 09/23/18 08:00 Pulse 97 09/23/18 10:00 Resp 21 09/23/18 10:00 BP 144/73 09/23/18 10:00 Pulse Ox 97 09/23/18 10:00 Intake & Output 09/22/18 09/23/18 09/23/18 18:59 06:59 18:59 Intake Total 1925 1333.667 930 Output Total 1105 1575 425 Balance 820 -241.333 505 Weight 73.5 kg Intake: IV 1875 1250 530 Diltiazem 50 mg In Sodium 30 Chloride 0.9% 40 ml @ 10 MG/HR 10 mls/hr IV .Q5H VERO Rx#:[id number] Magnesium Sulfate-D5w Pmx 100 1 gm In Dextrose/Water 1 100ml.bag @ 100 mls/hr IVPB Q1H VERO Rx#: [id number] Potassium Chloride 10 meq 100 100 In Water For Injection 1 100ml.bag @ 100 mls/hr IVPB Q1H VERO Rx#: [id number] Sodium Chloride 0.9% 1, 1625 1250 350 000 ml @ 125 mls/hr IV . Q8H VERO Rx#:[id number] cefTRIAXone 1,000 mg In 50 50 Sodium Chloride 0.9% 50 ml @ 100 mls/hr IVPB Q24HR VERO Rx#:[id number] Intake, IV Titration 50 83.667 400 Amount Diltiazem 50 mg In Sodium 50 83.667 Chloride 0.9% 40 ml @ 10 MG/HR 10 mls/hr IV .Q5H VERO Rx#:[id number] Magnesium Sulfate-D5w Pmx 200 1 gm In Dextrose/Water 1 100ml.bag @ 100 mls/hr IVPB Q1H VERO Rx#: [id number] Potassium Chloride 10 meq 200 In Water For Injection 1 100ml.bag @ 100 mls/hr IVPB Q1HR VERO Rx#: [id number] Output: Urine 1105 1575 425 Other: Voiding Method Indwelling Catheter Indwelling Catheter Indwelling Catheter - Exam Head normocephalic Neck supple Lungs clear to auscultation bilaterally no wheezing or crackles Heart irregular rhythm Abdomen is soft nontender nondistended positive bowel sounds no hepatosplenomegaly Extremities no edema Neuro alert and orientated to 0. Patient not following commands. - Labs CBC & Chem 7: 09/23/18 05:02 09/23/18 05:02 Labs: Abnormal Lab Results - Last 24 Hours (Table) 09/22/18 09/22/18 09/22/18 Range/Units 11:06 14:32 19:30 RBC 2.59 L 2.68 L (3.80-5.40) m/uL Hgb 7.3 L 7.7 L (11.4-16.0) gm/dL Hct 23.4 L 24.8 L (34.0-46.0) % Plt Count (150-450) k/uL Lymphocytes # 0.7 L (1.0-4.8) k/uL Potassium (3.5-5.1) mmol/L Chloride (98-107) mmol/L Carbon Dioxide (22-30) mmol/L Creatinine (0.52-1.04) mg/dL Glucose (74-99) mg/dL POC Glucose (mg/dL) 113 H (75-99) mg/dL HDL Cholesterol (40-60) mg/dL 09/23/18 09/23/18 Range/Units 05:02 05:02 RBC 2.55 L (3.80-5.40) m/uL Hgb 7.2 L (11.4-16.0) gm/dL Hct 22.9 L (34.0-46.0) % Plt Count 507 H (150-450) k/uL Lymphocytes # (1.0-4.8) k/uL Potassium 3.3 L (3.5-5.1) mmol/L Chloride 112 H (98-107) mmol/L Carbon Dioxide 18 L (22-30) mmol/L Creatinine 0.41 L (0.52-1.04) mg/dL Glucose 109 H (74-99) mg/dL POC Glucose (mg/dL) (75-99) mg/dL HDL Cholesterol 32 L (40-60) mg/dL Microbiology - Last 24 Hours (Table) 09/21/18 05:30 Urine Culture - Preliminary Urine,Voided Gram Neg Bacilli Assessment and Plan Assessment: 1. Acute blood loss anemia secondary to GI bleed. Patient received 2 units PRBCs. Current hemoglobin 8.8. Dr. Brunson has been consulted for GI services. Stool occult blood positive. EGD currently on hold per GI services due to altered mental status. 2. New onset atrial fibrillation with rapid ventricular response. Heart rate in the 130s. Cardiology services have been consulted. 2-D echo completed showing an EF of 60-65%. 3. Urinary tract infection. Patient started on Rocephin. Urine culture ordered 4. Elevated cardiac enzymes. Troponin level 0.054 and 0.055. Cardiology services have been consulted 5. History of diverticular disease 6. Underlining dementia 7. History of essential hypertension 8. History of parkinsonism 9. History of hyperlipidemia 10. History of osteoarthritis 11. Left hemipelgia and altered mental status due to acute ischemic stroke, right middle cerebral arterial distribution. CT of the head completed showing degenerated nonspecific white matter changes most typical of remote ischemia. Greater central component suggestive possibly of normal pressure hydrocephalus. If there is concern for acute ischemia correlate with MRI as clinically warranted. MRI completed showing right MCA territory nonhemorrhagic acute infarction. CTA completed showing no large vessel intracranial arterial occlusion or significant stenosis seen. Mild sclerotic changes at both bifurcations without hemodynamically significant stenosis appreciated in either internal carotid artery. Correlate for acute or chronic right sphenoid sinus disease. Neurology patient is not a candidate for any antiplatelet therapy or anticoagulation therapy due to her acute GI bleed. DVT prophylaxis SCDs. GI prophylaxis Protonix I performed an examination of the patient and discussed their management with the Nurse Practitioner. I have reviewed the Nurse Practitioner's notes and agree with the documented findings and plan of care
--- NOTE | 2018-09-23 11:41 | PN ---
PROGRESS NOTE DATE OF SERVICE: 09/23/2018 This is an 88-year-old female who was admitted to the ICU and to the hospital because of acute blood loss anemia secondary to upper GI bleed. She does have a history of diverticular disease, new onset atrial fibrillation, acute urinary tract infection, dementia, parkinsonism, essential hypertension, depression, ASHD, and osteoporosis. The patient unfortunately did develop a stroke. She developed some left-sided facial droop and left-sided weakness. She went for a CAT scan and other studies and was found to have a right MCA ischemic stroke. The patient is currently on 2 L nasal cannula. She is getting a saline IV at 125 and she is getting Cardizem drip a 10 mg an hour because she developed AFib with RVR last night. The patient is a do not resuscitate. She is poorly responsive. I did have a long discussion with the family about code status. They understand the severity of the situation. She is a DNR as I mentioned. It might be that the patient should be considered for comfort measures. Will have that discussion. Current vital signs include a temperature of 99.3, heart rate 113 and irregular, respiratory rate 24, blood pressure 154/73, mean 100 and the 2 L saturation 98%. Appears in no acute distress. Poorly responsive. Does arouse. HEENT examination is grossly unremarkable. Mucous membranes are dry. NECK: Supple. Full range of motion. No adenopathy or thyromegaly. Neck veins are flat. Cardiovascular examination reveals tachycardia. Rhythm is irregular. Likely atrial fibrillation. S1, S2 normal. No distinct murmur noted. Lungs reveal coarse rhonchi. Breath sounds are diminished. No wheezes or crackles. Abdomen is soft. Bowel sounds are heard. Extremities reveal some mild edema. Skin without rash. Neurologic examination still reveals a left facial droop and weakness on the left side of the body. LABS: Reviewed. White count 8.8, hemoglobin 7.2, hematocrit 22.9, platelet count 507,000, sodium 140, potassium 3.3, chloride 112, CO2 is 18, anion gap is 10, BUN is 12 and creatinine is 0.41. Microbiologic studies show some gram-negative bacilli in the urine from 09/21. It has not been yet identified. There was greater than 100,000 colony- forming units. No chest x-ray today. Medications are reviewed. She is currently on Rocephin, which should cover the potential bladder infection. Her other medications are appropriate. ASSESSMENT: 1. Acute right middle cerebral artery ischemic stroke with left-sided weakness and left facial droop. 2. Acute blood loss anemia secondary to upper gastrointestinal bleed. 3. History of diverticular disease. 4. New onset atrial fibrillation with rapid ventricular rate, currently on Cardizem. 5. Underlying dementia. 6. Parkinson's disease. 7. Essential hypertension. 8. History of depression. 9. ASHD. 10.Osteoporosis. 11.Gram-negative bacteria, identification pending. PLAN: Currently, the patient is on Cardizem for her atrial fibrillation and RVR. She is also on Rocephin for what appears to be a urinary tract infection. Overall prognosis remains very poor. The patient is currently n.p.o. The patient is a do not resuscitate. Additional recommendations and suggestions are forthcoming. The patient may not survive this hospitalization. Overall situation has deteriorated. Will continue to talk to the family on a regular ongoing basis. There is a nephew this seemed to be there almost every day to has been involved with her care. No additional recommendations are made. Will continue to follow. Critical care time is 33 minutes. MMODL / IJN: [id number] /
--- NOTE | 2018-09-23 12:54 | PN ---
PROGRESS NOTE Mrs. Newman is a lady with a severe GI bleed requiring blood transfusion, also had atrial fibrillation and converted to sinus rhythm yesterday. Yesterday afternoon, unfortunately, she developed a stroke with flaccidity of the left upper extremity. She is 88 years of age, has a legal guardian. She could not be anticoagulated because of active GI bleed and hemoglobin is down to 7.2. From a cardiac standpoint, her prognosis is poor. No aggressive intervention is advised. I am recommending that we should seriously consider comfort care for this patient who has a fairly large stroke, probably because of underlying atrial fibrillation and inability to anticoagulate in the phase of active GI bleeding. Vitals, the blood pressure is 120/80, pulse rate is about 100 per minute, irregular. She is on a Cardizem drip. S1, S2 heard normally, irregular rhythm noted, short systolic murmur noted. Lungs reveal diminished air entry. Abdomen is soft. Lower extremity exam reveals diminished pulses. Central nervous system reveals that patient is not responding and has flaccidity of left upper extremity suggestive of acute stroke. Prognosis remains poor. MMODL / IJN: [id number] /
[2018-09-23 13:31] LABS: Basophils % (A) 0 %; Eosinophils # (A) 0.1 k/uL (0-0.7); Eosinophils % (A) 1 %; HCT 22.1 % (34.0-46.0); Hypochromasia Moderate; Lymphocytes # (A) 0.8 k/uL (1.0-4.8); Lymphocytes % (A) 8 %; MCH 28.7 pg (25.0-35.0); MCHC 31.8 g/dL (31.0-37.0); MCV 90.3 fL (80.0-100.0); Mean Platelet Volume 8.2; Monocytes # (A) 0.7 k/uL (0-1.0); Monocytes % (A) 7 %; Neutrophils # (A) 8.3 k/uL (1.3-7.7); Neutrophils % (A) 82 %; Platelet Count 468 k/uL (150-450); RBC 2.45 m/uL (3.80-5.40); RDW 14.7 % (11.5-15.5); WBC 10.1 k/uL (3.8-10.6)
[2018-09-23 14:24] LABS: Poikilocytosis (M) Present; Toxic Granulation Present
[2018-09-23] MEDS ORDERED: ALBUMIN HUMAN 5% 250 ML in EMPTY BAG 1 BAG IVPB ONE (14:33)
--- NOTE | 2018-09-23 16:31 | P.PN ---
Subjective Progress Note Date: 09/23/18 Principal diagnosis: CVA Neurology is following an 80-year-old female for CVA. Patient was transferred from [facility] for GI bleed and severe anemia. Patient received transfusion with packed carotid blood cells and transferred to the ED at [facility]. On arrival, patient had atrial fibrillation and sudden onset of left hemiplegia and aphasia. Stat CT of the brain showed significant small vessel changes and moderate ventriculomegaly. Antiplatelet therapy and anticoagulation were not started due to GI bleed. Patient was also not a TPA candidate for the same reason. Patient did have an MRI of the brain which noted a right MCA non hemorrhagic infarct which is acute. EEG is ordered and pending. Serum homocystine level is normal. CT angiogram as previously noted. Lipid panel was normal to exception of HDL is low. Patient is alert to person only, in the ICU, in no acute distress. Objective - Vital Signs Vital signs: Vital Signs Temp 98.2 F 09/23/18 12:00 Pulse 114 H 09/23/18 15:00 Resp 24 09/23/18 15:00 BP 131/72 09/23/18 15:00 Pulse Ox 98 09/23/18 15:00 Intake & Output 09/22/18 09/23/18 09/23/18 18:59 06:59 18:59 Intake Total 1925 8329.680 4364 Output Total 1105 1575 825 Balance 820 -893.292 7184 Weight 73.5 kg Intake: IV 1875 1250 1355 Diltiazem 50 mg In Sodium 80 Chloride 0.9% 40 ml @ 10 MG/HR 10 mls/hr IV .Q5H VERO Rx#:[id number] Magnesium Sulfate-D5w Pmx 100 100 1 gm In Dextrose/Water 1 100ml.bag @ 100 mls/hr IVPB Q1H VERO Rx#: [id number] Potassium Chloride 10 meq 100 200 In Water For Injection 1 100ml.bag @ 100 mls/hr IVPB Q1H VERO Rx#: [id number] Sodium Chloride 0.9% 1, 1625 1250 925 000 ml @ 125 mls/hr IV . Q8H VERO Rx#:[id number] cefTRIAXone 1,000 mg In 50 50 Sodium Chloride 0.9% 50 ml @ 100 mls/hr IVPB Q24HR VERO Rx#:[id number] Intake, IV Titration 50 83.667 550 Amount Diltiazem 50 mg In Sodium 50 83.667 50 Chloride 0.9% 40 ml @ 10 MG/HR 10 mls/hr IV .Q5H VERO Rx#:[id number] Magnesium Sulfate-D5w Pmx 300 1 gm In Dextrose/Water 1 100ml.bag @ 100 mls/hr IVPB Q1H VERO Rx#: [id number] Potassium Chloride 10 meq 200 In Water For Injection 1 100ml.bag @ 100 mls/hr IVPB Q1HR VERO Rx#: [id number] Output: Urine 1105 1575 825 Other: Voiding Method Indwelling Catheter Indwelling Catheter Indwelling Catheter - Exam Gen. appearance: Alert to person only, in no apparent distress Head: Atraumatic normocephalic, normal inspection Eyes: PERRLA Ear nose and throat: mucous membranes moist Neck: Normal inspection. Absent tenderness, lymphadenopathy Respiratory: on supplemental oxygen Cardiovascular: telemetry monitoring GIabdominal: no guarding Extremities: unable to assess does not follow verbal commands Neurological: Alert and oriented 1, cranial nerves II through XII intact- unable to be assessed, unilateral lateralizing weakness- left side, no seizure activity noted on physical exam Psychological: flat - Labs CBC & Chem 7: 09/23/18 12:21 09/23/18 14:10 Labs: Abnormal Lab Results - Last 24 Hours (Table) 09/22/18 09/23/18 09/23/18 Range/Units 19:30 05:02 05:02 RBC 2.68 L 2.55 L (3.80-5.40) m/uL Hgb 7.7 L 7.2 L (11.4-16.0) gm/dL Hct 24.8 L 22.9 L (34.0-46.0) % Plt Count 507 H (150-450) k/uL Neutrophils # (1.3-7.7) k/uL Lymphocytes # 0.7 L (1.0-4.8) k/uL Potassium 3.3 L (3.5-5.1) mmol/L Chloride 112 H (98-107) mmol/L Carbon Dioxide 18 L (22-30) mmol/L Creatinine 0.41 L (0.52-1.04) mg/dL Glucose 109 H (74-99) mg/dL HDL Cholesterol 32 L (40-60) mg/dL 09/23/18 Range/Units 12:21 RBC 2.45 L (3.80-5.40) m/uL Hgb 7.0 L (11.4-16.0) gm/dL Hct 22.1 L (34.0-46.0) % Plt Count 468 H (150-450) k/uL Neutrophils # 8.3 H (1.3-7.7) k/uL Lymphocytes # 0.8 L (1.0-4.8) k/uL Potassium (3.5-5.1) mmol/L Chloride (98-107) mmol/L Carbon Dioxide (22-30) mmol/L Creatinine (0.52-1.04) mg/dL Glucose (74-99) mg/dL HDL Cholesterol (40-60) mg/dL Microbiology - Last 24 Hours (Table) 09/21/18 05:30 Urine Culture - Final Urine,Voided Escherichia coli Assessment and Plan (1) Acute CVA (cerebrovascular accident) Current Visit: Yes Status: Acute Code(s): I63.9 - CEREBRAL INFARCTION, UNSPECIFIED SNOMED Code(s): 066252177 (2) Acute left-sided weakness Current Visit: Yes Status: Acute Code(s): M62.89 - OTHER SPECIFIED DISORDERS OF MUSCLE SNOMED Code(s): 919998969 (3) Expressive aphasia Current Visit: Yes Status: Acute Code(s): R47.01 - APHASIA SNOMED Code(s) : 370892209 Plan: Patient does have documented evidence of an acute right MCA infarct with left hemiplegia. As previously noted patient does appear to have right hemisphere dominance and expressive aphasia. We'll defer to gastroenterology with regard to implementation of antiplatelet or anticoagulation therapy at this time. Recommendation is to patient will be started as soon as possible and as soon as medically of appropriate given her history of GI bleed. Based on patient's physical exam findings stroke appears to be rather significant. Continue with consult regarding physical therapy, speech and OT. Continue neuro checks as implemented. Patient's serum homocystine level is normal. Patient's lipid panel is normal with the exception of HDL which is slightly low. EEG is currently pending. Status: Neurology will continue to follow and provide updates as needed or warranted. Feel free to contact our office with any questions. I discussed the patients history, physical exam, diagnostic testing, lab work and imaging with Dr Hudson prior to implementing the plan above. He agrees with the plan as implemented prior to implementation.
--- NOTE | 2018-09-23 19:24 | EEG ---
ELECTROENCEPHALOGRAM REPORT DATE OF SERVICE: 09/23/2018. REASON FOR TESTING: Stroke. DESCRIPTION OF THE PROCEDURE: This EEG was performed using a 21-channel digital electroencephalograph, following international 10-20 system. DESCRIPTION OF THE RECORDING: From the beginning of the tracing, and with the patient's eyes closed, the background rhythm was mostly consisting of 6 Hz theta frequency in the posterior occipital leads. Asymmetry is noticed with muscle artifacts seen mainly on the right compared to the left. Photic stimulation was performed with no driving response seen. No pathological waves were elicited. Hyperventilation was not performed. The patient remains awake throughout the tracing. No epileptiform discharges were seen. Her EKG lead showed an irregularly irregular rhythm with a normal rate. INTERPRETATION: This awake EEG is abnormal due to the presence of generalized slowing of the background rhythm, mostly in the theta range. This is consistent with mild encephalopathy. Asymmetry is noticed with more muscle artifacts seen on the right side. No epileptiform discharges were seen. The absence of epileptiform discharges does not rule out the diagnosis of epilepsy; therefore clinical correlation is recommended. Of note, her EKG lead showed an irregularly irregular rhythm with a normal rate. MMODL / IJN: [id number] /
[2018-09-23] MEDS: VERAPAMIL SR 240 MG TABLET.ER PO SCH (22:18)
[2018-09-24 00:21] VITALS: TEMP 98.9
[2018-09-24] MEDS: SODIUM CHLORIDE 0.9% 1,000 ML IV SCH ×2 (00:53→11:07)
[2018-09-24 05:10] LABS: Basophils % (A) 0 %; Eosinophils # (A) 0.1 k/uL (0-0.7); Eosinophils % (A) 1 %; Hypochromasia Marked; Lymphocytes # (A) 0.8 k/uL (1.0-4.8); Lymphocytes % (A) 8 %; MCH 28.4 pg (25.0-35.0); MCHC 30.5 g/dL (31.0-37.0); Mean Platelet Volume 7.5; Monocytes # (A) 0.5 k/uL (0-1.0); Monocytes % (A) 5 %; Neutrophils # (A) 7.8 k/uL (1.3-7.7); Neutrophils % (A) 85 %; Platelet Count 500 k/uL (150-450); RBC 2.06 m/uL (3.80-5.40); RDW 14.9 % (11.5-15.5); WBC 9.2 k/uL (3.8-10.6)
[2018-09-24 05:37] LABS: HCT 19.2 % (34.0-46.0); HGB 5.9 gm/dL (11.4-16.0)
[2018-09-24 05:42] LABS: Magnesium 1.9 mg/dL (1.6-2.3)
[2018-09-24 05:55] LABS: Anion Gap 9 mmol/L; Blood Urea Nitrogen 10 mg/dL (7-17); Calcium 8.3 mg/dL (8.4-10.2); Carbon Dioxide 18 mmol/L (22-30); Chloride 115 mmol/L (98-107); Glucose 109 mg/dL (74-99); Potassium 3.5 mmol/L (3.5-5.1); Sodium 142 mmol/L (137-145)
[2018-09-24] MEDS ORDERED: Potassium Replacement Protocol 1 EACH MISC MISCELLANE PRN (07:42)
[2018-09-24] MEDS ORDERED: POTASSIUM CHLORIDE 10 MEQ in WATER FOR INJECTION 1 100ML.BAG IVPB SCH (08:00)
[2018-09-24] MEDS ORDERED: MORPHINE SULFATE 2 MG/ML SYRINGE IVP ONE (08:41)
[2018-09-24] MEDS ORDERED: SCOPOLAMINE 1.5MG/72HR PATCH TRANSDERM SCH (09:00)
[2018-09-24] MEDS ORDERED: MORPHINE SULFATE (100 MG/2 ML) 100 MG in SODIUM CHLORIDE 0.9% 100 ML IV SCH (09:00)
--- NOTE | 2018-09-24 09:18 | P.PN ---
Subjective Progress Note Date: 09/24/18 Principal diagnosis: GI bleed, urinary tract infection, A. fib RVR This is a 88-year-old female patient of Dr. Perkins, who resides in [facility], was transferred here to the emergency department on 09/20/2018 from the [facility], after she had hematemesis and melena. Patient has a history of dementia, hypertension, depression, parkinsonism, CAD, diverticular disease, osteoporosis. The patient is a poor historian, due to underlying dementia. The [facility] patient's hemoglobin was 7.6, which was a drop from a previous abdominal September 18 of a hemoglobin of 8.9.. Patient was transfused with 1 unit of packed red blood cells at the [facility], and received 1 more unit here. She seems to be fairly comfortable, were seen the patient in the intensive care this morning. She is awake and alert, responding verbally, her nephews at the bedside and could not provide much information on her medical history. Patient was found to be in A. fib RVR with a rate of 130 BPM, is appears to be new onset A. fib for this patient. Chest x-ray shows shows tiny pleural effusions. Globin after transfusion with 2 units of pack red blood cells went up to 9.7, and this morning is 8.8. Troponins were related to 0.054, and 0.055. Urinalysis turbid urine with large leuks, white cells in clumps and red blood cells and moderate bacteria. Occult stool was positive. Patient has not had any more imaging to emesis or melena at this hospital. Currently she is on maintenance IV fluids with 0.9 normal saline at a rate of 125 an hour, and Cardizem drip at 10 mg per hour for rate control, and she remains in A. fib with a rate of 113 BPM. Lung sounds are clear, abdomen is soft and nontender. Is unknown whether the patient had previous episodes of GI bleeding, she is on baby aspirin a day at home, no other blood thinners. On 09/22/2018 patient seen again in follow-up in the intensive care unit, she is lethargic, does arouse to verbal stimuli, slow to respond. Does not appear to be in any acute distress, no shortness of breath, no abdominal pain. Patient had converted to sinus rhythm, currently with controlled rate, still remains a Cardizem drip at 5 mg per hour, maintenance IV fluid is 0.9 normal saline at a rate of 125 ML per hour, patient is status post transfusion with 2 units of packed red blood cells, and this morning's hemoglobin is 7.5. Is hemodynamically stable. Patient had 2 small tarry bowel movements. No further hematemesis. Lung sounds are clear, she is nonoliguric. She remains on PPI therapy, nothing by mouth for EGD this afternoon. On 09/23/2018 patient is seen in follow-up in intensive care unit, is quite lethargic, she is moving her right arm, but she still has the right gaze deviation, acid on the left side. She did have a couple more clotty bowel movements, today's hemoglobin is down to 5.9. She remains in A. fib, with a controlled rate, hemodynamically stable. Brain MRI showed a right MCA nonhemorrhagic acute infarction. EEG consistent with generalized slowing in the theta range, consistent with mild encephalopathy, neurology is following. Patient's sister is the power of senior trial attorney for this patient, patient had an acute been DO NOT RESUSCITATE CODE STATUS, and in view of the new CVA, the decision was made to proceed with comfort care measures at this time. Objective - Vital Signs Vital signs: Vital Signs Temp 98.9 F 09/24/18 00:00 Pulse 93 09/24/18 08:00 Resp 23 09/24/18 08:00 BP 169/75 09/24/18 08:00 Pulse Ox 96 09/24/18 08:00 Intake & Output 09/23/18 09/24/18 09/24/18 18:59 06:59 18:59 Intake Total 2360 1560 125 Output Total 1100 945 50 Balance 1260 615 75 Weight 75.9 kg Intake: IV 1760 1510 125 Diltiazem 50 mg In Sodium 110 10 Chloride 0.9% 40 ml @ 10 MG/HR 10 mls/hr IV .Q5H VERO Rx#:[id number] Magnesium Sulfate-D5w Pmx 100 1 gm In Dextrose/Water 1 100ml.bag @ 100 mls/hr IVPB Q1H VERO Rx#: [id number] Potassium Chloride 10 meq 200 In Water For Injection 1 100ml.bag @ 100 mls/hr IVPB Q1H VERO Rx#: [id number] Sodium Chloride 0.9% 1, 1300 1500 125 000 ml @ 125 mls/hr IV . Q8H VERO Rx#:[id number] cefTRIAXone 1,000 mg In 50 Sodium Chloride 0.9% 50 ml @ 100 mls/hr IVPB Q24HR VERO Rx#:[id number] Intake, IV Titration 600 50 Amount Diltiazem 50 mg In Sodium 100 50 Chloride 0.9% 40 ml @ 10 MG/HR 10 mls/hr IV .Q5H VERO Rx#:[id number] Magnesium Sulfate-D5w Pmx 300 1 gm In Dextrose/Water 1 100ml.bag @ 100 mls/hr IVPB Q1H VERO Rx#: [id number] Potassium Chloride 10 meq 200 In Water For Injection 1 100ml.bag @ 100 mls/hr IVPB Q1HR VERO Rx#: [id number] Output: Urine 1100 945 50 Other: Voiding Method Indwelling Catheter Indwelling Catheter - Exam GENERAL EXAM: Alert, 88-year-old white female, somewhat of a flat affect, with right gaze deviation, nonresponsive HEAD: Normocephalic/atraumatic. EYES: Normal reaction of pupils, equal size. Conjunctiva pink, sclera white. NOSE: Clear with pink turbinates. THROAT: No erythema or exudates. NECK: No masses, no JVD, no thyroid enlargement, no adenopathy. CHEST: No chest wall deformity. Symmetrical expansion. LUNGS: Equal air entry with no crackles, wheeze, rhonchi or dullness. CVS: Irregular rate and rhythm, normal S1 and S2, no gallops, no murmurs, no rubs ABDOMEN: Soft, nontender. No hepatosplenomegaly, normal bowel sounds, no guarding or rigidity. EXTREMITIES: No clubbing, no edema, no cyanosis, 2+ pulses and upper and lower extremities. Right-sided analysis MUSCULOSKELETAL: Muscle strength and tone normal. SPINE: No scoliosis or deformity SKIN: No rashes CENTRAL NERVOUS SYSTEM: Left-sided paralysis, is not responding verbally - Labs CBC & Chem 7: 09/24/18 04:19 09/24/18 04:19 Labs: Abnormal Lab Results - Last 24 Hours (Table) 09/21/18 09/23/18 09/24/18 Range/Units 12:20 12:21 04:19 RBC 2.45 L (3.80-5.40) m/uL Hgb 7.0 L (11.4-16.0) gm/dL Hct 22.1 L (34.0-46.0) % MCHC (31.0-37.0) g/dL Plt Count 468 H (150-450) k/uL Neutrophils # 8.3 H (1.3-7.7) k/uL Lymphocytes # 0.8 L (1.0-4.8) k/uL Chloride 115 H (98-107) mmol/L Carbon Dioxide 18 L (22-30) mmol/L Creatinine 0.43 L (0.52-1.04) mg/dL Glucose 109 H (74-99) mg/dL Calcium 8.3 L (8.4-10.2) mg/dL Crossmatch See Detail 09/24/18 Range/Units 04:19 RBC 2.06 L (3.80-5.40) m/uL Hgb 5.9 L* (11.4-16.0) gm/dL Hct 19.2 L* (34.0-46.0) % MCHC 30.5 L (31.0-37.0) g/dL Plt Count 500 H (150-450) k/uL Neutrophils # 7.8 H (1.3-7.7) k/uL Lymphocytes # 0.8 L (1.0-4.8) k/uL Chloride (98-107) mmol/L Carbon Dioxide (22-30) mmol/L Creatinine (0.52-1.04) mg/dL Glucose (74-99) mg/dL Calcium (8.4-10.2) mg/dL Crossmatch Microbiology - Last 24 Hours (Table) 09/21/18 05:30 Urine Culture - Final Urine,Voided Escherichia coli Assessment and Plan Plan: Assessment: #1. Acute right MCA nonhemorrhagic stroke, left-sided paralysis, patient is not a candidate for any thrombolytic therapy or anticoagulation in view of GI bleeding #2. Acute blood loss anemia secondary to acute upper GI bleeding #3. History of diverticular disease #4. New onset A. fib RVR #5. Acute urinary tract infection, cultures positive for E. coli #6. Cognitive deficit related to underlying dementia #7. Parkinsonism and gait dysfunction #8. Essential hypertension #9. History of depression #10. Atherosclerotic heart disease #11. Osteoporosis Plan: At this point the prognosis is very poor, condition was discussed with patient' s power of senior trial attorney, and the decision was made to proceed with comfort care measures only. Discontinue all medications, discontinue lab draws and chest x- rays. He placed on oxygen, and given pain medications if needed. I performed a history & physical examination of the patient and discussed their management with my nurse practitioner, Luz Olivarez. I reviewed the nurse practitioner's note and agree with the documented findings and plan of care. Lung sounds are clear. The findings and the impression was discussed with the patient. I attest to the documentation by the nurse practitioner. Time with Patient: Greater than 30
[2018-09-24] MEDS: PANTOPRAZOLE 40 MG/10 ML VIAL IVP SCH (10:36)
[2018-09-24 10:43] VITALS: BMI 27.0
[2018-09-24] MEDS ORDERED: SODIUM CHLORIDE 0.9% 1,000 ML IV SCH (11:15)
[2018-09-24 12:18] VITALS: BP 149/57; PULSE 131; RESP 20
--- NOTE | 2018-09-24 12:30 | P.DS ---
Providers Date of admission: 09/21/18 00:46 Expected date of discharge: 09/24/18 Attending physician: Rahul Borrero Consults: 09/21/18 01:55 Consult Physician Stat Consulting Provider: Sushil Fishman Consult Reason/Comments: GI Bleeding Do you want consulting provider notified?: Already Contacted 09/21/18 06:27 Consult Physician Routine Consulting Provider: Jim Byers Consult Reason/Comments: new onset afib Do you want consulting provider notified?: Yes 09/22/18 17:59 Consult Physician Stat Consulting Provider: Yuly Hudson Consult Reason/Comments: stroke Do you want consulting provider notified?: Yes Primary care physician: Luigi Perkins [facility] Course: Discharge diagnosis Terminal diagnosis ischemic stroke in GI bleed 1. Acute blood loss anemia secondary to GI bleed. Patient received 2 units PRBCs. 2. New onset atrial fibrillation with rapid ventricular response. Heart rate in the 130s. Cardiology services have been consulted. 2-D echo completed showing an EF of 60-65%. 3. Urinary tract infection. Patient started on Rocephin. Urine culture ordered 4. Elevated cardiac enzymes. Troponin level 0.054 and 0.055. Cardiology services have been consulted 5. History of diverticular disease 6. Underlining dementia 7. History of essential hypertension 8. History of parkinsonism 9. History of hyperlipidemia 10. History of osteoarthritis 11. Left hemipelgia and altered mental status due to acute ischemic stroke, right middle cerebral arterial distribution. CT of the head completed showing degenerated nonspecific white matter changes most typical of remote ischemia. Greater central component suggestive possibly of normal pressure hydrocephalus. If there is concern for acute ischemia correlate with MRI as clinically warranted. MRI completed showing right MCA territory nonhemorrhagic acute infarction. CTA completed showing no large vessel intracranial arterial occlusion or significant stenosis seen. Mild sclerotic changes at both bifurcations without hemodynamically significant stenosis appreciated in either internal carotid artery. Correlate for acute or chronic right sphenoid sinus disease. Neurology patient is not a candidate for any antiplatelet therapy or anticoagulation therapy due to her acute GI bleed. Patient is completely unresponsive and unable to swallow secretions at this time Family has made the decision to proceed with [facility]. Patient will made hospice and made inpatient hospice at this time Hospital course This is an 88-year-old female patient of Dr. Perkins. Patient presented with complaints of upper GI bleed. Patient currently resides at [facility]. Patient apparently had an episode of vomiting with some bright red blood. Patient was then taken to The hospital and transferred to [facility] for further evaluation. Patient did receive 2 units PRBCs at [facility]. Patient has known past medical history of hyperlipidemia, hypertension, osteoarthritis, Osteoporosis, diverticulosis, and depression. EKG completed also showing patient in new-onset atrial fibrillation with rapid ventricular response with heart rate of 130. Patient started on Cardizem drip. Troponin levels 0.054 0.055. Chest x-ray completed repleted showing minimal pleural reaction and infiltrate at the lateral left lung base is increased compared to old exam. No heart failure. A tremendous aortic. There is clearing of right upper lobe pneumonia compared to old exam. Urinary analysis completed showing large amounts of leukocyte esterase. Patient started on Rocephin. Per nursing staff patient also having maroon stools. Stool occult blood was positive. Dr. Brunson has been consulted for GI services. Dr. Sweeney following for critical management and cardiology services consulted for new onset atrial fibrillation. This time patient appears comfortable resting in bed. Patient denies any chest pain or shortness of breath. On 09/22/2018 patient is currently resting in bed. Per GI services, EGD to be completed today. Hemoglobin currently 7.5. Patient remains on Cardizem drip for A. fib RVR. Patient denies chest pain or shortness breath. Patient denies nausea vomiting or diarrhea. Patient denies any urinary burning or frequency On 09/23/2018 patient is currently resting in bed in the intensive care unit. Code stroke was called yesterday 09/22/2018 due to mental status changes and left facial droop. Does appear patient's has suffered an acute ischemic stroke per neurology. Patient remains in A. fib RVR. Patient also having maroon- colored stools throughout night. Hemoglobin 7.2. EGD currently on hold due to altered mental status. Patient maintained Cardizem drip for A. fib RVR. Repeat hemoglobin will be checked today at noon per GI services. Patient currently not following any commands. Left-sided weakness noted. On 09/24/2018 patient currently not following any commands, patient is continuing to have GI bleed. Patient does appear comfortable at this time. Family wishes to move forward with [facility]. Patient will be made inpatient hospice at this time I performed an examination of the patient and discussed their management with the Nurse Practitioner. I have reviewed the Nurse Practitioner's notes and agree with the documented findings and plan of care Patient Condition at Discharge: Serious Plan - Discharge Summary Discharge Rx Participant: No New Discharge Prescriptions: No Action Verapamil HCl [Verapamil ER] 240 mg PO HS Escitalopram [Lexapro] 20 mg PO DAILY Naproxen 500 mg PO Q12H PRN PRN Reason: Pain Isosorbide Mononitrate ER [Imdur] 30 mg PO DAILY Aspirin 81 mg PO DAILY Meclizine [Antivert] 25 mg PO DAILY Sennosides/Docusate Sodium [Michelle-Colace Tablet] 1 tab PO BID@0900,1700 Magnesium Hydroxide [Milk of Magnesia Concentrate] 7,200 mg PO DAILY PRN PRN Reason: Constipation guaiFENesin [guaiFENesin Oral Solution] 200 mg PO Q6H PRN PRN Reason: Cough Melatonin 9 mg PO HS PRN PRN Reason: Insomnia Pro-Stat Sugar Free 30 mg PO BID@0900,1700 Bisacodyl [Dulcolax] 10 mg PO Q48H PRN PRN Reason: Constipation Gabapentin 600 mg PO BID@0900,1700 Cetirizine HCl [Zyrtec] 10 mg PO DAILY Acetaminophen Tab [Tylenol Tab] 1,000 mg PO BID Polyethylene Glycol 3350 [Miralax] 17 gm PO DAILY Indapamide [Lozol] 2.5 mg PO DAILY Fluticasone Nasal [place] [Flonase Nasal [place]] 2 spray EA NOSTRIL DAILY Ondansetron HCl [Zofran] 8 mg PO Q8H PRN PRN Reason: Nausea Discharge Medication List Verapamil HCl [Verapamil ER] 240 mg PO HS 07/04/14 [History] Escitalopram [Lexapro] 20 mg PO DAILY 02/28/17 [History] Aspirin 81 mg PO DAILY 06/16/17 [History] Isosorbide Mononitrate ER [Imdur] 30 mg PO DAILY 06/16/17 [History] Meclizine [Antivert] 25 mg PO DAILY 06/16/17 [History] Naproxen 500 mg PO Q12H PRN 06/16/17 [History] Sennosides/Docusate Sodium [Michelle-Colace Tablet] 1 tab PO BID@0900,1700 06/16/17 [History] Acetaminophen Tab [Tylenol Tab] 1,000 mg PO BID 09/20/18 [History] Bisacodyl [Dulcolax] 10 mg PO Q48H PRN 09/20/18 [History] Cetirizine HCl [Zyrtec] 10 mg PO DAILY 09/20/18 [History] Fluticasone Nasal [place] [Flonase Nasal [place]] 2 spray EA NOSTRIL DAILY 09/20/18 [History] Gabapentin 600 mg PO BID@0900,1700 09/20/18 [History] Indapamide [Lozol] 2.5 mg PO DAILY 09/20/18 [History] Magnesium Hydroxide [Milk of Magnesia Concentrate] 7,200 mg PO DAILY PRN [History] Melatonin 9 mg PO HS PRN 09/20/18 [History] Ondansetron HCl [Zofran] 8 mg PO Q8H PRN 09/20/18 [History] Polyethylene Glycol 3350 [Miralax] 17 gm PO DAILY 09/20/18 [History] Pro-Stat Sugar Free 30 mg PO BID@0900,1700 09/20/18 [History] guaiFENesin [guaiFENesin Oral Solution] 200 mg PO Q6H PRN 09/20/18 [History] Follow up Appointment(s)/Referral(s): Luigi Perkins MD [Primary Care Provider] - 1-2 days
== END 2018-09-24 12:45 | disposition hospice, inpatient (51) | DRG 377 ==
LOC: EC 20:59 → 2SICU 09-21 00:46
PROVIDERS: ADMIT Internal Medicine; ATTEND Internal Medicine
DX: K92.2 Gastrointestinal hemorrhage, unspecified (principal); I63.511 Cerebral infarction due to unspecified occlusion or stenosis of right middle cerebral artery; D62 Acute posthemorrhagic anemia; N39.0 Urinary tract infection, site not specified; G81.94 Hemiplegia, unspecified affecting left nondominant side; R47.01 Aphasia; G93.40 Encephalopathy, unspecified; G20 Parkinson's disease; I48.0 Paroxysmal atrial fibrillation; G62.9 Polyneuropathy, unspecified; G93.89 Other specified disorders of brain; R13.10 Dysphagia, unspecified; F03.90 Unspecified dementia, unspecified severity, without behavioral disturbance, psychotic disturbance, mood disturbance, and anxiety; R29.810 Facial weakness; R47.02 Dysphasia; Z66 Do not resuscitate; H51.8 Other specified disorders of binocular movement; F32.9 Major depressive disorder, single episode, unspecified; E78.5 Hyperlipidemia, unspecified; G89.29 Other chronic pain; M54.5 Low back pain; I10 Essential (primary) hypertension; R41.89 Other symptoms and signs involving cognitive functions and awareness; I25.10 Atherosclerotic heart disease of native coronary artery without angina pectoris; M81.0 Age-related osteoporosis without current pathological fracture; M19.90 Unspecified osteoarthritis, unspecified site; K57.90 Diverticulosis of intestine, part unspecified, without perforation or abscess without bleeding; R77.8 Other specified abnormalities of plasma proteins; E66.9 Obesity, unspecified; Z68.27 Body mass index [BMI] 27.0-27.9, adult; Z79.82 Long term (current) use of aspirin; Z79.899 Other long term (current) drug therapy; Z87.01 Personal history of pneumonia (recurrent); Z88.0 Allergy status to penicillin; Z88.8 Allergy status to other drugs, medicaments and biological substances; Z82.49 Family history of ischemic heart disease and other diseases of the circulatory system; Z82.5 Family history of asthma and other chronic lower respiratory diseases
CPT/HCPCS: 36415; 70450; 70496; 70498; 70551; 71045; 80048; 80061; 81001; 82272; 83090; 83735; 84100; 84132; 84484; 85025; 85027; 86850; 86900; 86901; 86920; 87077; 87086; 87186; 93005; 93306; 95819; 96374; 96375; 99291

== ENCOUNTER 2018-09-24 12:08 | Inpatient (IN) | payer MEDICAID ==
[2018-09-24] MEDS ORDERED: ONDANSETRON 4 MG/2 ML VIAL IVP PRN (12:10)
[2018-09-24] MEDS ORDERED: ACETAMINOPHEN SUPPOSITORY 650 MG SUPP RECTAL PRN (12:10)
[2018-09-24] MEDS ORDERED: LORazepam 2 MG/ML INJ IV PRN (12:10)
[2018-09-24] MEDS ORDERED: ATROPINE OPHTH SOLN 1% 5ML BTL SUBLINGUAL PRN (12:10)
[2018-09-24] MEDS ORDERED: BISACODYL 10 MG SUPP RECTAL PRN (12:13)
[2018-09-24] MEDS: MORPHINE SULFATE (100 MG/2 ML) 100 MG in SODIUM CHLORIDE 0.9% 100 ML IV SCH (12:30)
[2018-09-24] MEDS ORDERED: SCOPOLAMINE 1.5MG/72HR PATCH TRANSDERM SCH (13:00)
--- NOTE | 2018-09-24 14:27 | P.HPIM ---
History of Present Illness H&P Date: 09/24/18 Chief Complaint: stroke and GI bleed This is a 88-year-old female patient who presented to the emergency room with complaints of GI bleed. At that time patient was also found to be in A. fib with RVR. Patient does have a known past medical history of hyperlipidemia, hypertension, osteoarthritis, osteoporosis, diverticulosis, depression and Parkinson's disease. During those patient had mental status changes was found to had suffered from an acute CVA acute left-sided weakness and expressive aphasia. Patient reportedly cannot be anticoagulated due to GI bleed. Patient GI bleed episodes hemoglobin 5.9. Patient became singly lethargic and unresponsive to stimuli. Patient decided by family in OA to move forward with hospice care at this time. Patient was admitted to [facility] hospice. Review of Systems please refer to HPI otherwise unremarkable Past Medical History Past Medical History: Hyperlipidemia, Hypertension, Osteoarthritis (OA) Additional Past Medical History / Comment(s): neuropathy, osteoporosis, diverticulosis, back pain, dysphasia History of Any Multi-Drug Resistant Organisms: None Reported Past Surgical History: No Surgical Hx Reported Past Psychological History: Depression Smoking Status: Never smoker Past Alcohol Use History: None Reported Past Drug Use History: None Reported - Past Family History Brother(s) Family Medical History: COPD, Myocardial Infarction ([place]) Mother Additional Family Medical History / Comment(s): "hardening of the arteries of the brain" Medications and Allergies Home Medications Medication Instructions Recorded Confirmed Type Verapamil HCl [Verapamil ER] 240 mg PO HS 07/04/14 09/24/18 History Escitalopram [Lexapro] 20 mg PO DAILY 02/28/17 09/24/18 History Aspirin 81 mg PO DAILY 06/16/17 09/24/18 History Isosorbide Mononitrate ER [Imdur] 30 mg PO DAILY 06/16/17 09/24/18 History Meclizine [Antivert] 25 mg PO DAILY 06/16/17 09/24/18 History Naproxen 500 mg PO Q12H PRN 06/16/17 09/24/18 History Sennosides/Docusate Sodium 1 tab PO BID@0900,1700 06/16/17 09/24/18 History [Michelle-Colace Tablet] Acetaminophen Tab [Tylenol Tab] 1,000 mg PO BID 09/20/18 09/24/18 History Bisacodyl [Dulcolax] 10 mg PO Q48H PRN 09/20/18 09/24/18 History Cetirizine HCl [Zyrtec] 10 mg PO DAILY 09/20/18 09/24/18 History Fluticasone Nasal [place] [Flonase 2 spray EA NOSTRIL DAILY 09/20/18 09/24/18 History Nasal [place]] Gabapentin 600 mg PO BID@0900,1700 09/20/18 09/24/18 History Indapamide [Lozol] 2.5 mg PO DAILY 09/20/18 09/24/18 History Magnesium Hydroxide [Milk of 7,200 mg PO DAILY PRN 09/20/18 09/24/18 History Magnesia Concentrate] Melatonin 9 mg PO HS PRN 09/20/18 09/24/18 History Ondansetron HCl [Zofran] 8 mg PO Q8H PRN 09/20/18 09/24/18 History Polyethylene Glycol 3350 [Miralax] 17 gm PO DAILY 09/20/18 09/24/18 History Pro-Stat Sugar Free 30 mg PO BID@0900,1700 09/20/18 09/24/18 History guaiFENesin [guaiFENesin Oral 200 mg PO Q6H PRN 09/20/18 09/24/18 History Solution] Allergies Allergy/AdvReac Type Severity Reaction Status Date / Time amlodipine [From Caduet] Allergy Unknown Verified 09/20/18 21:23 amoxicillin [From Augmentin] Allergy Unknown Verified 09/20/18 21:23 atorvastatin [From Caduet] Allergy Unknown Verified 09/20/18 21:23 calcitonin [From Miacalcin] Allergy Unknown Verified 09/20/18 21:23 clavulanic acid Allergy Unknown Verified 09/20/18 21:23 [From Augmentin] colesevelam [From WelChol] Allergy Unknown Verified 09/20/18 21:23 ezetimibe [From Vytorin] Allergy Unknown Verified 09/20/18 21:23 Penicillins Allergy Rash/Hives Verified 09/20/18 21:23 simvastatin [From Vytorin] Allergy Unknown Verified 09/20/18 21:23 Physical Exam Vitals: Intake and Output 09/23/18 09/24/18 09/24/18 22:59 06:59 14:59 Other: Weight 75.9 kg Head normocephalic Neck supple Lungs clear to auscultation bilaterally no wheezing or crackles Heart regular rate and rhythm S1-S2, no rub or gallop Abdomen is soft nontender nondistended positive bowel sounds no hepatosplenomegaly Extremities no edema Neuro alert and orientated to 0. Patient lethargic does not respond to stimuli or verbal commands Assessment and Plan Assessment: Terminal diagnosis ischemic stroke and GI bleed 1. Acute blood loss anemia secondary to GI bleed. Patient received 2 units PRBCs. 2. New onset atrial fibrillation with rapid ventricular response. Patient unable to be anticoagulated at this time due to GI bleed 3. Urinary tract infection. Patient started on Rocephin. Urine culture ordered 4. Elevated cardiac enzymes. Troponin level 0.054 and 0.055. 5. History of diverticular disease 6. Underlining dementia 7. History of essential hypertension 8. History of parkinsonism 9. History of hyperlipidemia 10. History of osteoarthritis 11. Left hemipelgia and altered mental status due to acute ischemic stroke, right middle cerebral arterial distribution. CT of the head completed showing degenerated nonspecific white matter changes most typical of remote ischemia. Greater central component suggestive possibly of normal pressure hydrocephalus. If there is concern for acute ischemia correlate with MRI as clinically warranted. MRI completed showing right MCA territory nonhemorrhagic acute infarction. CTA completed showing no large vessel intracranial arterial occlusion or significant stenosis seen. Mild sclerotic changes at both bifurcations without hemodynamically significant stenosis appreciated in either internal carotid artery. Correlate for acute or chronic right sphenoid sinus disease. Neurology patient is not a candidate for any antiplatelet therapy or anticoagulation therapy due to her acute GI bleed. Patient is completely unresponsive and unable to swallow secretions at this time Family has made the decision to proceed with [facility]. Patient will made hospice and made inpatient hospice at this time Time with Patient: Greater than 30 (Greater than 60% of the total time spent in counseling and coordination of care. I performed an examination of the patient and discussed their management with the Nurse Practitioner. I have reviewed the Nurse Practitioner's notes and agree with the documented findings and plan of care)
--- NOTE | 2018-09-24 14:49 | PN ---
PROGRESS NOTE Mrs Newman is a lady with GI bleed, atrial fibrillation and stroke. She has left- sided flaccidity noted. Blood pressure is good, S1-S2 heard normally, irregular rhythm noted, short systolic murmur noted. Patient is elderly and her mentation is poor. She seems to have had a significant stroke and has been seen by Neurology and patient is being considered for comfort care. From a cardiac standpoint, I would recommend that we continue current medications. No aggressive intervention and I will see her as needed. S1-S2 heard normally with a regular rhythm. Lungs reveal bilateral air entry. Abdomen and lower extremity exam is unchanged. Neurologically, patient does not follow proper commands and appears to be awake. Overall prognosis is poor. MMODL / IJN: [id number] /
[2018-09-24 23:05] VITALS: BMI 27.0
[2018-09-25] MEDS: MORPHINE SULFATE (100 MG/2 ML) 100 MG in SODIUM CHLORIDE 0.9% 100 ML IV SCH (07:58)
--- NOTE | 2018-09-25 10:36 | P.PN ---
Subjective Progress Note Date: 09/25/18 This is a 88-year-old female patient who presented to the emergency room with complaints of GI bleed. At that time patient was also found to be in A. fib with RVR. Patient does have a known past medical history of hyperlipidemia, hypertension, osteoarthritis, osteoporosis, diverticulosis, depression and Parkinson's disease. During those patient had mental status changes was found to had suffered from an acute CVA acute left-sided weakness and expressive aphasia. Patient reportedly cannot be anticoagulated due to GI bleed. Patient GI bleed episodes hemoglobin 5.9. Patient became singly lethargic and unresponsive to stimuli. Patient decided by family in DPOA to move forward with hospice care at this time. Patient was admitted to [facility]. On 09/25/2018 is currently resting in bed morphine drip infusing. Patient does not display any signs of discomfort at this time. Family is at bedside. Objective - Vital Signs Vital signs: Vital Signs Temp Pulse 134 H 09/24/18 18:00 Resp 19 09/24/18 18:00 BP Pulse Ox 98 09/24/18 18:00 Intake & Output 09/24/18 09/25/18 09/25/18 18:59 06:59 18:59 Intake Total 91.968 18.156 43.69 Output Total 151 410 Balance -59.032 -391.844 43.69 Weight 75.9 kg 75.9 kg 75.9 kg Intake: IV 80 0.9NS 80 Intake, IV Titration 11.968 18.156 43.69 Amount Morphine Sulfate (100 mg/ 11.968 18.156 43.69 2 ml) 100 mg In Sodium Chloride 0.9% 100 ml @ 2 MG/HR 2.04 mls/hr IV . [facility] Rx#:[id number] Output: Urine 150 410 Stool 1 Other: Voiding Method Indwelling Catheter Indwelling Catheter Indwelling Catheter # Bowel Movements 1 2 - Exam Head normocephalic Neck supple Lungs clear to auscultation bilaterally no wheezing or crackles Heart regular rate and rhythm S1-S2, no rub or gallop Abdomen is soft nontender nondistended positive bowel sounds no hepatosplenomegaly Extremities no edema Neuro alert and orientated to 0. Patient lethargic does not respond to stimuli or verbal command Assessment and Plan Assessment: Terminal diagnosis ischemic stroke and GI bleed 1. Acute blood loss anemia secondary to GI bleed. Patient received 2 units PRBCs. 2. New onset atrial fibrillation with rapid ventricular response. Patient unable to be anticoagulated at this time due to GI bleed 4.. History of diverticular disease 5. Underlining dementia 6. History of essential hypertension 7. History of parkinsonism 8. History of hyperlipidemia 9. History of osteoarthritis 10. acute ischemic stroke, right middle cerebral arterial distribution. Family has made the decision to proceed with [facility]. Patient will made hospice and made inpatient hospice at this time
[2018-09-26] MEDS: MORPHINE SULFATE (100 MG/2 ML) 100 MG in SODIUM CHLORIDE 0.9% 100 ML IV SCH ×2 (03:37→20:01)
--- NOTE | 2018-09-26 11:10 | P.PN ---
Subjective Progress Note Date: 09/26/18 This is a 88-year-old female patient who presented to the emergency room with complaints of GI bleed. At that time patient was also found to be in A. fib with RVR. Patient does have a known past medical history of hyperlipidemia, hypertension, osteoarthritis, osteoporosis, diverticulosis, depression and Parkinson's disease. During those patient had mental status changes was found to had suffered from an acute CVA acute left-sided weakness and expressive aphasia. Patient reportedly cannot be anticoagulated due to GI bleed. Patient GI bleed episodes hemoglobin 5.9. Patient became singly lethargic and unresponsive to stimuli. Patient decided by family in DPOA to move forward with hospice care at this time. Patient was admitted to [facility]. On 09/25/2018 is currently resting in bed morphine drip infusing. Patient does not display any signs of discomfort at this time. Family is at bedside. On 09/26/2018 patient is currently on morphine drip hospice care nurse at bedside. Patient is showing no signs of pain at this time. Objective - Vital Signs Vital signs: Vital Signs Temp Pulse 110 H 09/26/18 06:49 Resp 14 09/26/18 07:25 BP Pulse Ox 94 L 09/26/18 08:22 Intake & Output 09/25/18 09/26/18 09/26/18 18:59 06:59 18:59 Intake Total 71.91 73.78 Output Total 1 100 Balance 70.91 -26.22 Weight 75.9 kg Intake: Intake, IV Titration 71.91 73.78 Amount Morphine Sulfate (100 mg/ 71.91 73.78 2 ml) 100 mg In Sodium Chloride 0.9% 100 ml @ 2 MG/HR 2.04 mls/hr IV . Q24H [facility] Rx#:[id number] Oral 0 0 Output: Urine 100 Uretheral ([place]) 100 Stool 1 Other: Voiding Method Indwelling Catheter Indwelling Catheter Indwelling Catheter # Voids 1 # Bowel Movements 2 1 - Exam Head normocephalic Neck supple Lungs clear to auscultation bilaterally no wheezing or crackles Heart regular rate and rhythm S1-S2, no rub or gallop Abdomen is soft nontender nondistended positive bowel sounds no hepatosplenomegaly Extremities no edema Neuro alert and orientated to 0. Patient lethargic does not respond to stimuli or verbal command Assessment and Plan Assessment: Terminal diagnosis ischemic stroke and GI bleed 1. Acute blood loss anemia secondary to GI bleed. Patient received 2 units PRBCs. 2. New onset atrial fibrillation with rapid ventricular response. Patient unable to be anticoagulated at this time due to GI bleed 4.. History of diverticular disease 5. Underlining dementia 6. History of essential hypertension 7. History of parkinsonism 8. History of hyperlipidemia 9. History of osteoarthritis 10. acute ischemic stroke, right middle cerebral arterial distribution. Family has made the decision to proceed with [facility]. Patient will made hospice and made inpatient hospice at this time I performed an examination of the patient and discussed their management with the Nurse Practitioner. I have reviewed the Nurse Practitioner's notes and agree with the documented findings and plan of care
[2018-09-26 17:08] VITALS: RESP 16
[2018-09-26 20:27] VITALS: PULSE 125
== END 2018-09-26 23:42 | disposition expired | DRG 951 ==
LOC: 2SICU 12:47 → 3NMEDONC 20:50
PROVIDERS: ADMIT Internal Medicine; ATTEND Internal Medicine
DX: Z51.5 Encounter for palliative care (principal); I63.9 Cerebral infarction, unspecified; K57.91 Diverticulosis of intestine, part unspecified, without perforation or abscess with bleeding; D62 Acute posthemorrhagic anemia; N39.0 Urinary tract infection, site not specified; R47.01 Aphasia; G81.04 Flaccid hemiplegia affecting left nondominant side; K92.2 Gastrointestinal hemorrhage, unspecified; E78.5 Hyperlipidemia, unspecified; F03.90 Unspecified dementia, unspecified severity, without behavioral disturbance, psychotic disturbance, mood disturbance, and anxiety; F32.9 Major depressive disorder, single episode, unspecified; G20 Parkinson's disease; I10 Essential (primary) hypertension; I48.91 Unspecified atrial fibrillation; M81.0 Age-related osteoporosis without current pathological fracture; R47.02 Dysphasia; M54.9 Dorsalgia, unspecified; G62.9 Polyneuropathy, unspecified; Z79.82 Long term (current) use of aspirin; Z79.899 Other long term (current) drug therapy; Z82.5 Family history of asthma and other chronic lower respiratory diseases; Z82.49 Family history of ischemic heart disease and other diseases of the circulatory system; Z86.73 Personal history of transient ischemic attack (TIA), and cerebral infarction without residual deficits
CPT/HCPCS: 94760